=== PATIENT | female | born 1960 | race Caucasian/White ===

== ENCOUNTER → 2016-03-09 | Outpatient (CLI) | payer MEDICARE, BC ==
--- NOTE | 2016-03-09 15:44 | CT ---
EXAMINATION TYPE: CT cervical spine wo con DATE OF EXAM: 03/09/2016 3:10 PM COMPARISON: Previous study dated 10/13/2013 HISTORY: Pt states of vertigo issues. Hx of cervical sx x2 years ago. CT DLP: 762 mGycm Automated exposure control for dose reduction was used. TECHNIQUE: CT scan of the cervical spine is obtained without contrast, axial images are obtained, sa gittal and coronal reformatted images are also reviewed. FINDINGS: There is some atelectatic changes present in the dependent portions of the visualized lungs . There is some shotty cervical adenopathy. No definite pathologically enlarged lymph nodes are seen. Visualized intracranial structures appear normal. There is been a previous ACDF extending from C4 through C7. Alignment remains normal. Atlantoaxial re lationships are normal. There is some facet arthropathy on the right at C3-4. There has been a left hemilaminectomy at C5. There is some disc space narrowing at C3-4. There is bilateral intervertebral foraminal narrowing at this level. There is bilateral intervertebral foraminal narrowing also at C4-5, greater on the left t gonzalez the right. There is mild, right-sided intervertebral foraminal narrowing at C5-6. There does not appear to be significant compressive discopathy. IMPRESSION: 1. NO SIGNIFICANT COMPRESSIVE DISCOPATHY. 2. MULTILEVEL INTERVERTEBRAL FORAMINAL NARROWING. 3. POSTSURGICAL CHANGE.
== END | disposition home or self-care (01) ==
LOC: RADCTMAIN 14:50
PROVIDERS: ATTEND Family Medicine
DX: M99.71 Connective tissue and disc stenosis of intervertebral foramina of cervical region (principal); Z98.890 Other specified postprocedural states
CPT/HCPCS: 72125

== ENCOUNTER → 2016-05-30 | Outpatient (CLI) | payer MEDICARE, BC ==
--- NOTE | 2016-06-04 10:31 | ENG ---
DATE OF SERVICE: 05/30/2016 VNG STUDY VNG INDICATIONS: A 56-year-old female with vertigo and dizziness that started in 2012 and has been staying the same. She has spells of vertigo every few days and can last seconds to hours. It can be precipitated by head and neck and body positions. VNG FINDINGS: Saccades testing shows intact peak velocities, accuracies, and latencies. Gaze with fixation shows no nystagmus in any of the directions of gaze including centrally with vision denied. Tracking shows smooth tracking; no breakups at faster or slower speeds. Opticokinetic nystagmus shows no significant asymmetry. Static position testing in 6 positions both with eyes open and with vision denied shows no nystagmus in any of those positions. Hector-Hallpike maneuvers not performed due to cervical fusion per tech. Caloric testing shows bilateral caloric weakness. IMPRESSION: Bilateral caloric weakness is a nonspecific abnormality. This would need to be confirmed such as with head thrust test or active and passive rotation testing to confirm presence of bilateral vestibular dysfunction. Medication also a possibility. Benign positional vertigo could not be excluded due to [place]-Hallpike maneuvers not being performed. All other features of testing were unremarkable. No nystagmus noted in any part of the test. There were no central features to testing.
== END | disposition home or self-care (01) ==
LOC: NEUROMAIN 07:37
PROVIDERS: ATTEND Otolaryngology
DX: H81.03 Meniere's disease, bilateral (principal)
CPT/HCPCS: 92537; 92540

== ENCOUNTER 2016-08-23 07:59 | Emergency (ER) | payer MEDICARE, BC ==
[2016-08-23] MEDS ORDERED: SODIUM CHLORIDE 0.9% 1,000 ML IV STA (08:41)
[2016-08-23] MEDS ORDERED: HYDROmorphone 1 MG/ML 1 ML SYRINGE IVP STA ×2 (08:41→11:16)
[2016-08-23] MEDS ORDERED: ONDANSETRON 4 MG/2 ML VIAL IVP STA (08:41)
[2016-08-23 09:40] LABS: Basophils % (A) 1 %; CH 28.5; CHCM 33.3; Eosinophils # (A) 0.2 k/uL (0-0.7); Eosinophils % (A) 3 %; HDW 2.34; Luc % (Auto) 3; Lymphocytes # (A) 2.3 k/uL (1.0-4.8); Lymphocytes % (A) 36 %; MCH 30.1 pg (25.0-35.0); MCHC 34.9 g/dL (31.0-37.0); MCV 86.2 fL (80.0-100.0); Mean Platelet Volume 6.8; Monocytes # (A) 0.4 k/uL (0-1.0); Monocytes % (A) 7 %; Neutrophils # (A) 3.2 k/uL (1.3-7.7); Neutrophils % (A) 51 %; RBC 4.64 m/uL (3.80-5.40); RDW 13.1 % (11.5-15.5); WBC 6.4 k/uL (3.8-10.6); WBC (Perox) 6.71
--- NOTE | 2016-08-23 09:43 | XR ---
EXAMINATION TYPE: XR KUB DATE OF EXAM: 08/23/2016 COMPARISON: NONE HISTORY: Pain TECHNIQUE: Single supine KUB image of the abdomen is obtained FINDINGS: Small bowel demonstrates no evidence for dilatation or air fluid levels. Gas and fecal material is seen in non-distended colon. No convincing evidence for pneumoperitoneum. No unusual calcifications. The lung bases are clear. The osseous structures are intact. IMPRESSION: 1. Overall nonobstructive bowel gas pattern.
--- NOTE | 2016-08-23 09:50 | ED ---
Back Pain HPI - General Chief Complaint: Back Pain/Injury Stated Complaint: back pain, nausea Time Seen by Provider: 08/23/16 08:36 Source: patient, RN notes reviewed, old records reviewed Limitations: no limitations - History of Present Illness Initial Comments: 56-year-old female presents emergency Department chief complaint of right shoulder pain rating towards her right upper quadrant for the past 3 days. Patient reports that this is been intermittent but over the past 24 hours and become severe and stabbing. She reports that she's had fever and feels chilled. She reports that she does feel nauseated. She states that she is still has her gallbladder. Has history of appendectomy. Patient denies any recent fever, chills, shortness of breath, chest pain, nausea vomiting, numbness or tingling, dysuria or hematuria, constipation or diarrhea, headaches or visual changes, or any other current symptoms - Related Data Home Medications Medication Instructions Recorded Confirmed Levothyroxine Sodium [Synthroid] 112 mcg PO DAILY 10/13/13 08/23/16 Baclofen 10 mg PO HS 08/23/16 08/23/16 Diazepam [Valium] 2 mg PO TID PRN 08/23/16 08/23/16 Montelukast [Singulair] 10 mg PO HS 08/23/16 08/23/16 Ondansetron [Zofran] 4 mg PO Q8HR PRN 08/23/16 08/23/16 Triamterene-Hctz 37.5-25Mg 1 cap PO DAILY 08/23/16 08/23/16 [Dyazide 37.5-25 Capsule] Previous Rx's Medication Instructions Recorded Ibuprofen [Motrin] 800 mg PO Q6HR PRN #20 tab 01/05/16 Azithromycin [Zithromax Z-pack] 250 mg PO DIRECTED #6 tab 08/23/16 Famotidine [Pepcid] 20 mg PO BID #20 tablet 08/23/16 Ondansetron Odt [Zofran Odt] 4 mg PO Q8HR PRN #12 tab 08/23/16 Allergies Allergy/AdvReac Type Severity Reaction Status Date / Time acetaminophen Allergy Rapid Verified 08/23/16 08:23 [From [place]-N 100] Heart Rate ciprofloxacin Allergy Rash/Hives Verified 08/23/16 08:23 codeine Allergy Rapid Verified 08/23/16 08:23 Heart Rate hydrocodone bitartrate Allergy Rapid Verified 08/23/16 08:23 [From [place]] Heart Rate meperidine HCl [From Demerol] Allergy Rapid Verified 08/23/16 08:23 Heart Rate propoxyphene napsylate Allergy Rapid Verified 08/23/16 08:23 [From Darvocet-N 100] Heart Rate Review of Systems ROS Statement: Those systems with pertinent positive or pertinent negative responses have been documented in the HPI. ROS Other: All systems not noted in ROS Statement are negative. Past Medical History Past Medical History: Thyroid Disorder Additional Past Medical History / Comment(s): cervical vertigo, meniere's disease, hypercausis History of Any Multi-Drug Resistant Organisms: None Reported Past Surgical History: Appendectomy, Hernia Repair, Orthopedic Surgery, Tubal Ligation Additional Past Surgical History / Comment(s): neck surgery Past Psychological History: No Psychological Hx Reported Smoking Status: Never smoker Past Alcohol Use History: None Reported Past Drug Use History: None Reported General Exam - General Exam Comments Initial Comments: 56-year-old female. Patient appears to be in discomfort. Patient is hard of hearing. Limitations: no limitations General appearance: alert, in no apparent distress Head exam: Present: atraumatic, normocephalic, normal inspection Eye exam: Present: normal appearance, PERRL, EOMI. Absent: scleral icterus, conjunctival injection, periorbital swelling ENT exam: Present: normal exam, mucous membranes moist Neck exam: Present: normal inspection. Absent: tenderness, meningismus, lymphadenopathy Respiratory exam: Present: normal lung sounds bilaterally. Absent: respiratory distress, wheezes, rales, rhonchi, stridor Cardiovascular Exam: Present: regular rate, normal rhythm, normal heart sounds. Absent: systolic murmur, diastolic murmur, rubs, gallop, clicks GI/Abdominal exam: Present: soft, tenderness (Right upper quadrant tenderness. Positive Nolasco sign.), normal bowel sounds. Absent: distended, guarding, rebound, rigid Extremities exam: Present: normal inspection, full ROM, normal capillary refill. Absent: tenderness, pedal edema, joint swelling, calf tenderness Back exam: Present: normal inspection Neurological exam: Present: alert, oriented X3, CN II-XII intact Psychiatric exam: Present: normal affect, normal mood Skin exam: Present: warm, dry, intact, normal color. Absent: rash Course Vital Signs 08/23/16 08/23/16 08/23/16 08:08 08:23 09:18 Temperature 97.1 F L 97 F L Pulse Rate 66 61 54 L Respiratory 17 22 18 Rate Blood Pressure 120/72 120/55 119/59 O2 Sat by Pulse 100 98 Oximetry 08/23/16 08/23/16 10:11 11:14 Temperature 96.9 F L 97.5 F L Pulse Rate 54 L 60 Respiratory 18 19 Rate Blood Pressure 140/54 121/60 O2 Sat by Pulse 98 Oximetry Medical Decision Making - Medical Decision Making 56-year-old female presents emergency Department chief complaint of right shoulder pain rating towards her right upper quadrant for the past 3 days. Patient reports that this is been intermittent but over the past 24 hours and become severe and stabbing. She denies any fever or chills. - Lab Data Result diagrams: 08/23/16 09:10 08/23/16 09:10 Lab Results 08/23/16 08/23/16 08/23/16 Range/Units 09:10 09:10 10:05 WBC 6.4 (3.8-10.6) k/uL RBC 4.64 (3.80-5.40) m/uL Hgb 14.0 (11.4-16.0) gm/dL Hct 40.0 (34.0-46.0) % MCV 86.2 (80.0-100.0) fL MCH 30.1 (25.0-35.0) pg MCHC 34.9 (31.0-37.0) g/dL RDW 13.1 (11.5-15.5) % Plt Count 317 (150-450) k/uL Neutrophils % 51 % Lymphocytes % 36 % Monocytes % 7 % Eosinophils % 3 % Basophils % 1 % Neutrophils # 3.2 (1.3-7.7) k/uL Lymphocytes # 2.3 (1.0-4.8) k/uL Monocytes # 0.4 (0-1.0) k/uL Eosinophils # 0.2 (0-0.7) k/uL Basophils # 0.0 (0-0.2) k/uL Sodium 140 (137-145) mmol/L Potassium 5.3 H (3.5-5.1) mmol/L Chloride 105 (98-107) mmol/L Carbon Dioxide 26 (22-30) mmol/L Anion Gap 9 mmol/L BUN 18 H (7-17) mg/dL Creatinine 0.87 (0.52-1.04) mg/dL Est GFR (MDRD) Af Amer >60 (>60 ml/min/1.73 sqM) Est GFR (MDRD) Non-Af >60 (>60 ml/min/1.73 sqM) Glucose 100 H (74-99) mg/dL Calcium 9.7 (8.4-10.2) mg/dL Total Bilirubin 0.6 (0.2-1.3) mg/dL AST 26 (14-36) U/L ALT 39 (9-52) U/L Alkaline Phosphatase 75 (38-126) U/L Total Protein 7.2 (6.3-8.2) g/dL Albumin 4.4 (3.5-5.0) g/dL Amylase 42 (30-110) U/L Lipase 124 (23-300) U/L Urine Color Light Yellow Urine Appearance Clear (Clear) Urine pH 6.5 (5.0-8.0) Ur Specific [place] 1.009 (1.001-1.035) Urine Protein Negative (Negative) Urine Glucose (UA) Negative (Negative) Urine Ketones Negative (Negative) Urine Blood Negative (Negative) Urine Nitrite Negative (Negative) Urine Bilirubin Negative (Negative) Urine Urobilinogen <2.0 (<2.0) mg/dL Ur Leukocyte Esterase Negative (Negative) 08/23/16 12:06 EKG shows sinus bradycardia rate 59 bpm [place] interval 132 ms. QRS duration 70 ms. QT QTc is 4/43 ms. - Radiology Data Radiology results: report reviewed CT abdomen and pelvis in no acute inflammatory normality. There is no one, K diverticulosis sigmoid colon. My exam changes in the spine. Gallbladder Shows No Significant Abnormality.. Disposition Clinical Impression: Abdominal pain, Back pain Disposition: HOME SELF-CARE Condition: Good Instructions: Abdominal Pain (ED) Additional Instructions: patient has a follow-up with her primary care provider. Return to the emergency department if any alarming signs or symptoms occur. Prescriptions: Azithromycin [Zithromax Z-pack] 250 mg PO DIRECTED #6 tab Famotidine [Pepcid] 20 mg PO BID #20 tablet Ondansetron Odt [Zofran Odt] 4 mg PO Q8HR PRN #12 tab PRN Reason: Nausea Referrals: Shubham Edwards MD [Primary Care Provider] - 1-2 days Nydia Turcios MD [STAFF PHYSICIAN] - 1-2 days Time of Disposition: 12:37
[2016-08-23 09:53] LABS: ALT 39 U/L (9-52); AST 26 U/L (14-36); Alkaline Phosphatase 75 U/L (38-126); Amylase 42 U/L (30-110); Anion Gap 9 mmol/L; Blood Urea Nitrogen 18 mg/dL (7-17); Calcium 9.7 mg/dL (8.4-10.2); Carbon Dioxide 26 mmol/L (22-30); Chloride 105 mmol/L (98-107); Glucose 100 mg/dL (74-99); Non-African American GFR(MDRD) >60 (>60 ml/min/1.73 sqM); Potassium 5.3 mmol/L (3.5-5.1); Sodium 140 mmol/L (137-145); Total Bilirubin 0.6 mg/dL (0.2-1.3); Total Protein 7.2 g/dL (6.3-8.2)
--- NOTE | 2016-08-23 10:12 | US ---
EXAMINATION TYPE: US gallbladder DATE OF EXAM: 08/23/2016 COMPARISON: NONE CLINICAL HISTORY: Pain. EXAM MEASUREMENTS: Liver Length: 15.4 cm Gallbladder Wall: 0.1 cm CBD: 0.5 cm Right Kidney: 10.0 x 4.8 x 5.0 cm Pancreas: Obscured by bowel gas Liver: appears homogeneous Gallbladder: No stones seen Evidence for sonographic Nolasco's sign: yes CBD: wnl Right Kidney: No hydronephrosis or masses seen IMPRESSION: No significant abnormality.
[2016-08-23 10:24] LABS: Appearance,Urine Clear (Clear); Bilirubin,Urine Negative (Negative); Glucose,Urine (UA) Negative (Negative); Ketones,Urine Negative (Negative); Leukocyte Esterase,Urine Negative (Negative); Nitrite,Urine Negative (Negative); PH, Urine 6.5 (5.0-8.0); Protein,Urine Negative (Negative); Specific Gravity,Urine 1.009 (1.001-1.035); UA Billing (MACRO vs. MICRO) CHEM; Urobilinogen,Urine <2.0 mg/dL (<2.0)
[2016-08-23] MEDS ORDERED: RX INFO: IV CONTRAST WAS GIVEN 1 EACH MISC MISCELLANE PRN (10:37)
[2016-08-23 11:15] VITALS: PULSE 60
[2016-08-23] MEDS ORDERED: diphenhydrAMINE 50 MG/ML 1 ML VIAL IVP STA (11:19)
[2016-08-23] MEDS ORDERED: METOCLOPRAMIDE 5 MG/ML 2 ML VIAL IVP STA (11:19)
--- NOTE | 2016-08-23 11:36 | CT ---
EXAMINATION TYPE: CT abdomen pelvis w con DATE OF EXAM: 08/23/2016 REFERENCE: NONE HISTORY: Pain HISTORY: Patient complains of RUQ pain. REFERENCE: NONE CT DLP: 1553 mGy Automated exposure control for dose reduction was used. TECHNIQUE: Helical acquisition through the abdomen and pelvis was obtained following the oral ingesti on of without Oral Contrast and following intravenous administration of 100 mL of Omnipaque 300. The data was reformatted in axial, coronal and sagittal projections. FINDINGS: Visualized portions of the lungs are clear. There is no pleural or pericardial fluid. The heart is not enlarged. Within the abdomen, the liver, spleen and gallbladder are normal. Both adrenal glands are normal. Both kidneys demonstrate function and appear morphologically normal. The pancreas is unremarkable. There is no significant retroperitoneal, iliac or inguinal adenopathy. The bladder is unremarkable. The uterus and both ovaries are normal. There are scattered diverticula within the sigmoid colon without radiographic evidence of diverticuli tis. The appendix is not visualized. Small bowel loops are normal. There is no free fluid and no free air. There is mild hypertrophic spondylosis within the lumbar spine as well as some facet arthropathy. No bony destructive lesion is seen. IMPRESSION: 1. NO ACUTE INFLAMMATORY ABNORMALITY. 2. MINIMAL, UNCOMPLICATED DIVERTICULOSIS OF THE SIGMOID COLON. 3. MILD DEGENERATIVE CHANGES WITHIN THE SPINE.
[2016-08-23 13:05] VITALS: BP 103/75; RESP 18; TEMP 97.1
== END 2016-08-23 13:05 | disposition home or self-care (01) ==
LOC: EC 07:59
DX: K57.30 Diverticulosis of large intestine without perforation or abscess without bleeding (principal); R00.1 Bradycardia, unspecified; R10.11 Right upper quadrant pain; M54.9 Dorsalgia, unspecified; M25.511 Pain in right shoulder; R50.9 Fever, unspecified; R11.0 Nausea; H93.299 Other abnormal auditory perceptions, unspecified ear; E07.9 Disorder of thyroid, unspecified; Z79.899 Other long term (current) drug therapy; Z88.1 Allergy status to other antibiotic agents; Z88.5 Allergy status to narcotic agent; Z90.49 Acquired absence of other specified parts of digestive tract
CPT/HCPCS: 36415; 93005; 80053; 82150; 83690; 85025; 81003; 74000; 76705; 74177; 99285; 96374; 96375 ×3; 96376; 96361; J1200; J2765; J2405; J1170; Q9967

== ENCOUNTER 2017-02-06 20:43 | Observation (INO) | payer MEDICARE, BC ==
[2017-02-06] MEDS ORDERED: ONDANSETRON 4 MG/2 ML VIAL IVP STA (21:27)
[2017-02-06] MEDS ORDERED: DIAZEPAM 5 MG/ML 2 ML INJ IVP STA (21:46)
[2017-02-06 21:50] LABS: ALT 46 U/L (9-52); AST 33 U/L (14-36); Albumin 4.7 g/dL (3.5-5.0); Alkaline Phosphatase 75 U/L (38-126); Anion Gap 12 mmol/L; Blood Urea Nitrogen 15 mg/dL (7-17); Calcium 10.2 mg/dL (8.4-10.2); Carbon Dioxide 24 mmol/L (22-30); Chloride 103 mmol/L (98-107); Glucose 103 mg/dL (74-99); Lipase 149 U/L (23-300); Potassium 4.2 mmol/L (3.5-5.1); Sodium 139 mmol/L (137-145); Total Bilirubin 0.4 mg/dL (0.2-1.3); Total Protein 8.1 g/dL (6.3-8.2)
[2017-02-06 21:52] LABS: Creatine Kinase 72 U/L (30-135)
[2017-02-06 22:05] LABS: Creatine Kinase MB 0.8 ng/mL (0.0-2.4); Troponin I <0.012 ng/mL (0.000-0.034)
--- NOTE | 2017-02-06 22:22 | CT ---
EXAM: CT Head Without Intravenous Contrast CLINICAL HISTORY: Reason: pain TECHNIQUE: Axial computed tomography images of the head/brain without intravenous contrast. Coronal and sagittal reformats were obtained. CTDI is 60.30 mGy and DLP is 1017.10 mGy-cm. This CT exam was performed using one or more of the following dose reduction techniques: automated exposure control, adjustment of the mA and/or kV according to patient size, and/or use of iterative reconstruction technique. COMPARISON: CT head 07/11/14 FINDINGS: Brain: No intracranial hemorrhage, mass effect, or midline shift. Mild global volume loss. Mild sulcal and ventricular prominence is consistent with age-related parenchymal volume loss. Ventricles: See above. Bones/joints: No acute fracture. Sinuses: Unremarkable as visualized. No acute sinusitis. Mastoid air cells: Unremarkable as visualized. No mastoid effusion. IMPRESSION: No acute intracranial abnormality.
--- NOTE | 2017-02-06 22:31 | XR ---
EXAM: XR Chest, 2 Views CLINICAL HISTORY: chest pain, dizziness TECHNIQUE: Frontal and lateral views of the chest. COMPARISON: Chest x-ray 01/05/16 FINDINGS: Lungs: Linear opacity in the anterior right upper lobe, best seen on lateral view. Lungs are otherwise clear. Pleural space: No pleural effusion. No pneumothorax. Heart: Unremarkable. No cardiomegaly. Mediastinum: Unremarkable. Bones/joints: No acute findings. IMPRESSION: Linear opacity in the anterior right upper lobe on lateral view, likely discoid atelectasis but correlate for pneumonia.
[2017-02-06 22:44] LABS: Basophils % (A) 1 %; Eosinophils # (A) 0.2 k/uL (0-0.7); Eosinophils % (A) 2 %; HCT 39.8 % (34.0-46.0); HGB 12.7 gm/dL (11.4-16.0); Lymphocytes # (A) 1.7 k/uL (1.0-4.8); Lymphocytes % (A) 20 %; MCH 27.8 pg (25.0-35.0); MCV 86.9 fL (80.0-100.0); Mean Platelet Volume 6.6; Monocytes # (A) 0.7 k/uL (0-1.0); Monocytes % (A) 8 %; Neutrophils # (A) 5.4 k/uL (1.3-7.7); Neutrophils % (A) 67 %; Platelet Count 318 k/uL (150-450); RBC 4.58 m/uL (3.80-5.40); RDW 13.2 % (11.5-15.5); WBC 8.1 k/uL (3.8-10.6)
--- NOTE | 2017-02-06 22:46 | ED ---
General Adult HPI - General Chief complaint: Chest Pain Stated complaint: Chest Pain Source: patient, RN notes reviewed, old records reviewed Mode of arrival: ambulatory Limitations: no limitations - History of Present Illness Initial comments: this is a 57-year-old female to the ER for evaluation today. This patient presents for evaluation regards to nausea vomiting dizziness vertigo. Patient has history of Mnire's disease. Patient also is complaining of neck pain and back pain and pain down her back. Bilateral upper extremity weakness and [place] and walk today severe lower extremity weakness, patient was unable to stand up on her own. She really presented to urgent care and was sent ER for evaluation. Patient also complains of chest pain shortness of breath. Denies fever denies trauma. Patient is recent change in medications - Related Data Home Medications Medication Instructions Recorded Confirmed Diazepam [Valium] 2 mg PO TID PRN 08/23/16 02/06/17 Ondansetron [Zofran] 4 mg PO Q8HR PRN 08/23/16 02/06/17 Levothyroxine Sodium [Synthroid] 150 mcg PO DAILY 02/06/17 02/06/17 Allergies Allergy/AdvReac Type Severity Reaction Status Date / Time acetaminophen Allergy Rapid Verified 02/06/17 21:04 [From Darvocet-N 100] Heart Rate ciprofloxacin Allergy Rash/Hives Verified 02/06/17 21:04 codeine Allergy Rapid Verified 02/06/17 21:04 Heart Rate hydrocodone bitartrate Allergy Rapid Verified 02/06/17 21:04 [From [place]] Heart Rate meperidine HCl [From Demerol] Allergy Rapid Verified 02/06/17 21:04 Heart Rate propoxyphene napsylate Allergy Rapid Verified 02/06/17 21:04 [From Darvocet-N 100] Heart Rate Review of Systems ROS Statement: Those systems with pertinent positive or pertinent negative responses have been documented in the HPI. ROS Other: All systems not noted in ROS Statement are negative. Past Medical History Past Medical History: Thyroid Disorder Additional Past Medical History / Comment(s): cervical vertigo, meniere's disease, hypercausis History of Any Multi-Drug Resistant Organisms: None Reported Past Surgical History: Appendectomy, Hernia Repair, Orthopedic Surgery, Tubal Ligation Additional Past Surgical History / Comment(s): neck surgery Past Psychological History: No Psychological Hx Reported Smoking Status: Never smoker Past Alcohol Use History: None Reported Past Drug Use History: None Reported General Exam Limitations: no limitations General appearance: alert, in no apparent distress Head exam: Present: atraumatic, normocephalic, normal inspection Eye exam: Present: normal appearance, PERRL, EOMI, nystagmus. Absent: scleral icterus, conjunctival injection, periorbital swelling ENT exam: Present: normal exam, mucous membranes moist Neck exam: Present: normal inspection. Absent: tenderness, meningismus, lymphadenopathy Respiratory exam: Present: normal lung sounds bilaterally. Absent: respiratory distress, wheezes, rales, rhonchi, stridor Cardiovascular Exam: Present: regular rate, normal rhythm, normal heart sounds. Absent: systolic murmur, diastolic murmur, rubs, gallop, clicks GI/Abdominal exam: Present: soft, normal bowel sounds. Absent: distended, tenderness, guarding, rebound, rigid Extremities exam: Present: normal inspection, full ROM, normal capillary refill. Absent: tenderness, pedal edema, joint swelling, calf tenderness Back exam: Present: normal inspection Neurological exam: Present: alert, oriented X3, CN II-XII intact Psychiatric exam: Present: normal affect, normal mood Skin exam: Present: warm, dry, intact, normal color. 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 Patient has history of severe vertigo, coming in with worsening vertigo today, we'llbilateral upper extremity weakness and pain in her neck and back. Patient is unable to ambulate without help, continued nauseous and vomiting patient will be admitted for evaluation and treatment, management of symptoms - Lab Data Result diagrams: 02/06/17 22:40 02/06/17 21:10 Lab Results 02/06/17 02/06/17 02/06/17 Range/Units 21:10 21:10 21:10 WBC (3.8-10.6) k/uL RBC (3.80-5.40) m/uL Hgb (11.4-16.0) gm/dL Hct (34.0-46.0) % MCV (80.0-100.0) fL MCH (25.0-35.0) pg MCHC (31.0-37.0) g/dL RDW (11.5-15.5) % Plt Count (150-450) k/uL Neutrophils % % Lymphocytes % % Monocytes % % Eosinophils % % Basophils % % Neutrophils # (1.3-7.7) k/uL Lymphocytes # (1.0-4.8) k/uL Monocytes # (0-1.0) k/uL Eosinophils # (0-0.7) k/uL Basophils # (0-0.2) k/uL PT (9.0-12.0) sec INR (<1.2) APTT (22.0-30.0) sec D-Dimer (<0.60) mg/L FEU Sodium 139 (137-145) mmol/L Potassium 4.2 (3.5-5.1) mmol/L Chloride 103 (98-107) mmol/L Carbon Dioxide 24 (22-30) mmol/L Anion Gap 12 mmol/L BUN 15 (7-17) mg/dL Creatinine 0.79 (0.52-1.04) mg/dL Est GFR (MDRD) Af Amer >60 (>60 ml/min/1.73 sqM) Est GFR (MDRD) Non-Af >60 (>60 ml/min/1.73 sqM) Glucose 103 H (74-99) mg/dL Calcium 10.2 (8.4-10.2) mg/dL Phosphorus (2.5-4.5) mg/dL Magnesium 2.0 (1.6-2.3) mg/dL Total Bilirubin 0.4 (0.2-1.3) mg/dL AST 33 (14-36) U/L ALT 46 (9-52) U/L Alkaline Phosphatase 75 (38-126) U/L Total Creatine Kinase 72 (30-135) U/L CK-MB (CK-2) 0.8 (0.0-2.4) ng/mL CK-MB (CK-2) Rel Index 1.1 Troponin I <0.012 (0.000-0.034) ng/mL Total Protein 8.1 (6.3-8.2) g/dL Albumin 4.7 (3.5-5.0) g/dL Lipase 149 (23-300) U/L 02/06/17 02/06/17 02/06/17 Range/Units 21:10 22:40 22:40 WBC 8.1 (3.8-10.6) k/uL RBC 4.58 (3.80-5.40) m/uL Hgb 12.7 (11.4-16.0) gm/dL Hct 39.8 (34.0-46.0) % MCV 86.9 (80.0-100.0) fL MCH 27.8 (25.0-35.0) pg MCHC 32.0 (31.0-37.0) g/dL RDW 13.2 (11.5-15.5) % Plt Count 318 (150-450) k/uL Neutrophils % 67 % Lymphocytes % 20 % Monocytes % 8 % Eosinophils % 2 % Basophils % 1 % Neutrophils # 5.4 (1.3-7.7) k/uL Lymphocytes # 1.7 (1.0-4.8) k/uL Monocytes # 0.7 (0-1.0) k/uL Eosinophils # 0.2 (0-0.7) k/uL Basophils # 0.0 (0-0.2) k/uL PT 10.2 (9.0-12.0) sec INR 1.0 (<1.2) APTT 22.8 (22.0-30.0) sec D-Dimer (<0.60) mg/L FEU Sodium (137-145) mmol/L Potassium (3.5-5.1) mmol/L Chloride (98-107) mmol/L Carbon Dioxide (22-30) mmol/L Anion Gap mmol/L BUN (7-17) mg/dL Creatinine (0.52-1.04) mg/dL Est GFR (MDRD) Af Amer (>60 ml/min/1.73 sqM) Est GFR (MDRD) Non-Af (>60 ml/min/1.73 sqM) Glucose (74-99) mg/dL Calcium (8.4-10.2) mg/dL Phosphorus 4.1 (2.5-4.5) mg/dL Magnesium (1.6-2.3) mg/dL Total Bilirubin (0.2-1.3) mg/dL AST (14-36) U/L ALT (9-52) U/L Alkaline Phosphatase (38-126) U/L Total Creatine Kinase (30-135) U/L CK-MB (CK-2) (0.0-2.4) ng/mL CK-MB (CK-2) Rel Index Troponin I (0.000-0.034) ng/mL Total Protein (6.3-8.2) g/dL Albumin (3.5-5.0) g/dL Lipase (23-300) U/L - Radiology Data Radiology results: report reviewed (CT brain and chest x-ray is negative), image reviewed Disposition Clinical Impression: Vertigo, Chest pain, Weakness Disposition: ADMITTED IP TO THIS [facility] Condition: Good Referrals: Shubham Edwards MD [Primary Care Provider] - 1-2 days
[2017-02-06 22:55] LABS: Partial Thromboplastin Time 22.8 sec (22.0-30.0); Prothrombin Time 10.2 sec (9.0-12.0)
[2017-02-06] MEDS ORDERED: ONDANSETRON 4 MG/2 ML VIAL IVP PRN (23:57)
[2017-02-06] MEDS ORDERED: DIAZEPAM 5 MG/ML 2 ML INJ IVP PRN (23:57)
[2017-02-06] MEDS ORDERED: SODIUM CHLORIDE 0.9% 1,000 ML IV ONE (23:57)
[2017-02-06] MEDS ORDERED: MECLIZINE 25 MG TAB PO PRN (23:57)
[2017-02-07] MEDS ORDERED: MORPHINE SULFATE 5 MG/ML SYRINGE IVP PRN (00:25)
[2017-02-07 01:06] VITALS: BMI 33.8
[2017-02-07] MEDS: IBUPROFEN 800 MG TAB PO PRN ×2 (01:57→09:44)
[2017-02-07] MEDS ORDERED: RX INFO: IV CONTRAST WAS GIVEN 1 EACH MISC MISCELLANE PRN (08:20)
[2017-02-07] MEDS ORDERED: PANTOPRAZOLE 40 MG/10 ML VIAL IVP SCH (09:00)
[2017-02-07] MEDS ORDERED: DIAZEPAM 5 MG/ML (10 ML MDV) IVP PRN (09:36)
--- NOTE | 2017-02-07 09:36 | CT ---
EXAMINATION TYPE: CT CervThoracic spine wo con DATE OF EXAM: 02/07/2017 COMPARISON: CT cervical spine March 09, 2016. HISTORY: Vertigo, Nausea and Vomiting per patient. Neck and back pain per order. CT DLP: 2210.40 mGycm Automated exposure control for dose reduction was used. FINDINGS: Cervical spine is visualized in its entirety from C1 through upper thoracic levels, redemonstrate str aightened alignment without evidence of acute fracture or dislocation. Prevertebral soft tissue appe ars remains normal limits. The C1-C2 articulation remains within normal limits on the coronal images . There is persistent narrowing of the atlantodental interval. There is persistent anterior fusion pl ate and artificial disc material C4-C7 levels. There is persistent mild disc space narrowing C3-C4 le jenny. Spinal canal is grossly preserved. Review of axial images redemonstrates uncovertebral facet degenerative changes C3-C4 level causing mo derate bilateral neural foraminal narrowing not significantly changed from prior. There is mild to mo derate bilateral neural foraminal narrowing at C4-C5 level due to uncovertebral facet arthropathy and marginal spurring. There is mild to moderate right greater than left neural foraminal narrowing at C 5-C6 level due to marginal spurring. Overall there is no significant change from prior study. Thyroid gland is felt within normal limits. Thoracic Spine Shows Demineralization. There Is No Acute Fracture Or Dislocation Seen. Vertebral Body Heights Are Maintained. There Is Mild Multilevel Disc Space Narrowing And Mild To Moderate Multileve l Anterior And Lateral Spurring Centered In The Mid Thoracic Spine. Spinal Canal Is Grossly Preserved . Review Of Axial Images Shows No Large Disc Herniation At Any Thoracic Level. Visualized Portion Of Lea ngs Are Clear. There Is 2 Mm Calcified Nodule Right Upper Lobe On Axial Image 71 There Are Prominent Borderline Enlarged Thoracic Lymph Nodes. For Reference Right Paratracheal Lymph Node Measures 13 X 8 Mm On Axial Image 89. Paraspinal muscle bulk is maintained. IMPRESSION: No acute fracture or dislocation. No significant acute finding identified.
[2017-02-07] MEDS: LEVOTHYROXINE 75 MCG TAB PO SCH (10:19)
--- NOTE | 2017-02-07 14:18 | P.CON ---
Consult Note - . Consult date: 02/07/17 Assessment/Plan:: Patient seen and examined at bedside. Patient has an underlying history of Meniere's disease, and relates a three-day history of loss of balance, nausea/ vomiting, and pain in the middle of her back between the shoulder blades and neck. Patient has history of previous ACDF done several years ago. Patient has continued to complain of pain and spasm in the neck and upper back. She also complains of feeling like her "eyes are jittery" and some temperature changes in her face. She has not taken opioids recently and occasionally takes Valium for spasm. The patient does have some paravertebral tenderness in the thoracic spine, and some cervical facet tenderness bilaterally. That said, her symptoms of dizziness and nausea appear to have some underlying neurologic origin and would likely not benefit from an interventional procedure. I will start the patient on [place] and ibuprofen for pain, and tizanidine for spasms, and recommend neurology eval for complaints of eye "jitteriness" and other neurologic somatic complaints. Please call back with any further questions.
[2017-02-07] MEDS ORDERED: oxyCODONE-APAP 5-325MG 1 EACH TAB PO PRN (14:20)
[2017-02-07 15:47] VITALS: RESP 18
[2017-02-07] MEDS ORDERED: cefTRIAXone IN SWFI 1,000 MG/10 ML SYRINGE IVP SCH (16:00)
[2017-02-07] MEDS ORDERED: guaiFENesin SYRUP 100MG/5ML 200 MG/10 ML CUP PO PRN (16:25)
[2017-02-07] MEDS: tiZANidine 4 MG TAB PO SCH ×2 (16:53→19:53)
--- NOTE | 2017-02-07 17:27 | HP ---
HISTORY AND PHYSICAL CHIEF COMPLAINT: A 57-year-old white female with atypical chest pain and thoracic and cervical pain with worsening of her dizziness. HISTORY OF PRESENT ILLNESS: She came to the ER due to significant vomiting, dizziness, vertigo, history of Meniere disease, neck pain, pain in the mid thoracic area. She was seen by ER doctor, admitted to the hospital with atypical chest pain, neck pain, back pain with worsening of her vertigo-type symptomatology. Cardiology will need to see her as well as possible Neurology versus Anesthesia assessment for cervical injection. HOME MEDICATIONS: 1. Valium 2 mg t.i.d. 2. Zofran 4 mg q.8 hours p.r.n. 3. Synthroid 150 mcg daily. ALLERGIES: From DARVOCET, CIPRO, CODEINE, NORCO, DEMEROL. REVIEW OF SYSTEMS: Fourteen-point review of systems negative except for that mentioned in HPI. PAST MEDICAL HISTORY: Hypothyroidism, cervical vertigo, Meniere disease, hypercephalgia. SURGICAL HISTORY: Hernia repair, appendectomy, orthopedic surgery, tubal ligations, prior cervical surgery. PHYSICAL EXAM: VITAL SIGNS: Stable, afebrile. CARDIOVASCULAR: S1, S2. LUNGS: Transmitted upper airway sounds. GI: Soft, nontender. OPHTHALMOLOGIC: Pupils equal, round, reactive to light and accommodation. Ears are patent and some mild fluid behind the ear drums. HEENT: Normocephalic, atraumatic. Some nystagmus. Absent scleral icterus. Neck shows normal appearance. No acute distress. Lungs show some scattered rhonchi. EXTREMITIES: No cyanosis, clubbing, edema. BACK: Normal to inspection. NEUROLOGIC: Cranial nerves are intact. PSYCH: Fair mood and affect. Skin shows no rashes. Blood pressure is 130s to 150s over 70s to 80s. Pulse is 70s to 80s, O2 is 98-99% on room air. The EKG shows sinus rhythm. ASSESSMENT: Severe vertigo, cervical neuritis, atypical chest pain, rule out myocardial infarction. Cardiology consult as well as troponins will be done and repeated [facility] for cervical epidural will be done. MMODL / IJN: [id number] /
[2017-02-07] MEDS ORDERED: IPRATROPIUM-ALBUTEROL 3 ML NEB INHALATION PRN (19:55)
--- NOTE | 2017-02-07 22:28 | CONS ---
CONSULTATION DATE OF SERVICE: 02/07/2017. CHIEF COMPLAINT: Dizziness. HISTORY OF PRESENT ILLNESS: This is pleasant 57-year-old female who is being evaluated by the Neurology Service per the request of Dr. Edwards for dizziness. The patient has history of Meniere disease with frequent episodes of vertigo and chronic hearing loss. She states that over the past several days, her dizziness has been different and more severe. She was also complaining of some neck pain and sensation of eye twitching. She also had symptoms of upper extremity weakness. She states that she was recently diagnosed with pneumonia and was being treated with erythromycin. Once she started erythromycin, her weakness began and she noticed increasing neck pain. In the emergency room, a CT scan of the brain was done, which showed no acute abnormalities. A CT scan of the cervical spine was done which showed facet joint arthropathy with no significant stenosis or disc herniation. and they did start the patient on [place] on this admission. She reports mild improvements in her neck. At the time of my evaluation, she is resting in her bed and appears to be in no acute distress. She reports improvement in her strength. Her antibiotic has been switched to switched to Rocephin. A comprehensive metabolic profile and cardiac enzymes were normal. PAST MEDICAL HISTORY: Hypothyroidism, Meniere disease, history of appendectomy, hernia repair, surgery, orthopedic surgery, tubal ligation, neck surgery. SOCIAL HISTORY: She denies any tobacco alcohol or drug use. FAMILY HISTORY: Noncontributory. HOME MEDICATIONS: Reviewed in the chart. ALLERGIES: CIPROFLOXACIN, CODEINE, HYDROCODONE, MEPERIDINE, DARVOCET. REVIEW OF SYSTEMS: As mentioned above and otherwise negative. PHYSICAL EXAM: Vital signs show a temperature of 98.1, pulse 65, respiration 18, blood pressure 133/70. GENERAL APPEARANCE: The patient is a well-developed female who appears to be in no acute distress. HEENT: Normocephalic, atraumatic, diminished hearing is present. No facial asymmetry is seen. NECK: Supple with no masses felt. CARDIOVASCULAR: Regular rate and rhythm. ABDOMEN: Nontender nondistended. Extremities showed no edema or clubbing. Neurological exam the patient is alert aware and oriented x3. Speech and language are normal. Strength appears to be full in all 4 extremities. Sensory exam was normal to light touch in all 4 extremities. No facial asymmetry is seen on cranial nerve testing, but she does have diminished hearing. No tremors or seizure-like activity is seen. IMPRESSION: 1. Vertigo. 2. History of Meniere's disease. 3. Chronic hearing loss. 4. Cervicalgia. 5. Cervical facet joint arthropathy. 6. Upper extremity weakness, resolved. RECOMMENDATION: The patient's vertigo is due to her Meniere disease. Her symptoms may have been worsened due to her recent pneumonia and antibiotic therapy. Erythromycin has been discontinued and her weakness has completely resolved. Continue Rocephin. As for her neck pain, she may continue on [place] as needed. Further treatment options will be discussed in outpatient setting. Physical Therapy will also be discussed in the outpatient setting. I do recommend an ENT consultation. An EEG has been ordered. I will continue to follow with you. Further recommendations to follow. Thank you, Dr. Edwards, for allowing me to participate in the care of your patient. If you have any questions, please feel free to contact me. MMODL / IJN: [id number] /
[2017-02-08] MEDS: LEVOTHYROXINE 75 MCG TAB PO SCH (06:47)
[2017-02-08 10:15] VITALS: BP 120/66; PULSE 74; TEMP 97.4
--- NOTE | 2017-02-15 10:39 | EEG ---
ELECTROENCEPHALOGRAM REPORT DATE OF SERVICE: 02/08/2017 REASON FOR TESTING: Dizziness. DESCRIPTION OF THE PROCEDURE: This EEG was performed using a 21 channel digital electroencephalograph, following international 10-20 system. DESCRIPTION OF THE RECORDING: From the beginning of the tracing, with patient's eyes closed, the background rhythm was mostly consisting of 10 hertz alpha frequency in the posterior occipital leads. No obvious asymmetry is seen. Photic stimulation was performed with a minimal driving response seen. No pathological waves were elicited. Hyperventilation was not performed. Rare movement artifacts are seen. The patient remains awake throughout the tracing. No epileptiform discharges were noticed. Her EKG lead showed a regular rate and rhythm. INTERPRETATION: This awake EEG can be considered within normal limits. There is no asymmetry seen. No epileptiform discharges were noticed. The absence of epileptiform discharges does not rule out the diagnosis of epilepsy, therefore clinical correlation is recommended. MMKAREL / MORENA: [id number] /
--- NOTE | 2017-03-10 15:59 | DS ---
DISCHARGE SUMMARY DATE OF ADMISSION: 02/06/2017. DATE OF DISCHARGE: 02/08/2017. DISCHARGE MEDICATIONS: Ativan 2 mg t.i.d. p.r.n., Zofran 4 mg q.8 hours p.r.n., Synthroid 150 mcg daily. CONDITION: Stable. PROGNOSIS: Guarded. DISCHARGE DIAGNOSES: 1. Acute dizziness. 2. Bilateral cervical neuroforaminal narrowing. 3. . 4. History of Meniere disease, chronic hearing loss. 5. Cervicalgia. 6. Cervical facet joint arthropathy. 7. Vertigo due to her Meniere disease. She was given IV fluids, IV Valium, medications per Neurology. Her recent pneumonia was treated with Erythromycin and Rocephin was given through the IV while in the hospital for prior pneumonia, cough and congestion. She stabilized, sent home to follow up in the office within a week. MMODL / JUVENALN: [id number] /
== END 2017-02-08 14:50 ==
LOC: EC 20:43 → 3OBS 23:57
PROVIDERS: ADMIT Family Medicine; ATTEND Family Medicine
DX: R07.89 Other chest pain (principal); M54.2 Cervicalgia; M54.6 Pain in thoracic spine; R11.2 Nausea with vomiting, unspecified; H81.09 Meniere's disease, unspecified ear; Z79.899 Other long term (current) drug therapy; E03.9 Hypothyroidism, unspecified; R53.1 Weakness; R06.02 Shortness of breath; Z88.6 Allergy status to analgesic agent; Z88.1 Allergy status to other antibiotic agents; Z88.5 Allergy status to narcotic agent; Z88.8 Allergy status to other drugs, medicaments and biological substances; Z98.1 Arthrodesis status; H91.90 Unspecified hearing loss, unspecified ear; M12.9 Arthropathy, unspecified
CPT/HCPCS: 99285; 96374; 96375 ×3; 96376; 36415; 94640; 95819; 93005; 80053; 82550; 82553; 83690; 83735; 84100; 84484; 85025; 85610; 85730; 71020; 72128; 72125; 70450; G0378 ×3; J3360 ×2; J2405; J0696; C9113; 85379

== ENCOUNTER → 2017-04-12 | Outpatient (CLI) | payer MEDICARE, BC ==
--- NOTE | 2017-04-15 09:12 | MM ---
Reason for exam: screening (asymptomatic). Last mammogram was performed 1 year and 4 months ago. History: Patient is postmenopausal. Family history of breast cancer in maternal aunt. Benign core biopsy of the right breast. Physical Findings: A clinical breast exam by your physician is recommended on an annual basis and results should be correlated with mammographic findings. MG 3D Screening Mammo W/Cad Bilateral CC and MLO view(s) were taken. Prior study comparison: December 06, 2015, bilateral MG 3d screening mammo w/cad. June 15, 2014, mammogram, performed at [facility]. The breast tissue is heterogeneously dense. This may lower the sensitivity of mammography. Finding #1: There are typically benign circumscribed round, oval masses in both breasts unchanged from 2009. Finding #2: There are typically benign diffuse/scattered calcifications in both breasts. No suspicious abnormality. ASSESSMENT: Benign, BI-RAD 2 RECOMMENDATION: Routine screening mammogram of both breasts in 1 year.
== END | disposition home or self-care (01) ==
LOC: RADMAMWWP 09:16
PROVIDERS: ATTEND Family Medicine
DX: Z12.31 Encounter for screening mammogram for malignant neoplasm of breast (principal)
CPT/HCPCS: 77063; 77067

== ENCOUNTER → 2017-11-19 | Outpatient (CLI) | payer MEDICARE, BC ==
--- NOTE | 2017-11-19 15:57 | BD ---
EXAMINATION TYPE: Axial Bone Density DATE OF EXAM: 11/19/2017 COMPARISON: 09.12.2009 CLINICAL HISTORY: 57 YR OLD FEMALE....ICD-10 CODE: Z13.820 SCREEN FOR OSTEOPOROSIS Height: 62 Weight: 186 FRAX RISK QUESTIONS: NOTHING TO NOTE HERE RISK FACTORS HISTORY OF: History of Wrist Fracture: LT A CHILD Surgery to Spine CERVICAL ONLT PLATED WITH SCREWS Family History of Osteoporosis: YES, MOTHER AND SISTER Active: YES Diet low in dairy products/other sources of calcium: YES, LACTOSE INTOLERANT Postmenopausal woman: BHAVESH AT AGE 52 MEDICATIONS: Prednisone or other steroids: IN PAST ONLY Thyroid Medications: YES, SYNTHROID, FOR 26 YRS Additional Medications: VALIUM PRN, INHALER FOR BRONCHITIS PRN, Additional History: MENIERE'S DISEASE, EXAM MEASUREMENTS: Bone mineral densitometry was performed using the Entrisphere System. Bone mineral density as measured about the Lumbar spine is: ----- L1-L4(G/cm2): 1.208 T Score Values are as follows: ----- L1: -1.4 ----- L2: -0.2 ----- L3: 0.8 ----- L4: 1.1 ----- L1-L4: 0.2 Bone mineral density has: Decreased -6.1% since study of: 09.12.2009 Bone mineral density about the R hip (g/cm2): 1.023 Bone mineral density about the L hip (g/cm2): 1.042 T Score values are as follows: -----R Neck: -0.1 -----L Neck: -0.6 -----R Total: 0.1 -----L Total: 0.3 Bone mineral density has: Decreased -1.0% since study of: 09.12.2009 FRAX%s: THERE IS A 5.5% CHANCE FOR A MAJOR OSTEOPOROTIC FX AND 0.2% FOR HIP FX.....PROBABILITY OF FX IN 10 YRS TIME IMPRESSION: Normal (Values between +1 and -1 indicate normal bone mass). Consider repeating this study in 5 year s or sooner if there is some new clinical indication. NOTE: T-SCORE=SD OF THE YOUNG ADULT MEAN.
== END ==
LOC: RADBDWWP 14:45
PROVIDERS: ATTEND Obstetrics & Gynecology
DX: Z13.820 Encounter for screening for osteoporosis (principal)
CPT/HCPCS: 77080

== ENCOUNTER 2018-02-13 08:06 | Emergency (ER) | payer MEDICARE, BC ==
[2018-02-13 08:20] VITALS: RESP 18
[2018-02-13] MEDS ORDERED: ONDANSETRON 4 MG/2 ML VIAL IVP STA (08:22)
[2018-02-13] MEDS ORDERED: SODIUM CHLORIDE 0.9% 1,000 ML IV STA ×2 (08:22)
[2018-02-13] MEDS ORDERED: SODIUM CHLORIDE 0.9% 500 ML 500 ML IV STA (08:22)
--- NOTE | 2018-02-13 08:23 | ED ---
Nausea/Vomiting/Diarrhea HPI - General Chief complaint: Nausea/Vomiting/Diarrhea Stated complaint: RT SIDE ABDOMINAL PAIN, VOMITING Time Seen by Provider: 02/13/18 08:22 Source: patient, RN notes reviewed, old records reviewed Mode of arrival: ambulatory - History of Present Illness Initial comments: This is a 58-year-old female the ER with 3-4 days of nausea vomiting and diarrhea. Patient no significant injury medical history no surgical history. No recent travel history, no known sick contacts, patient denies any count and was similar complaint. Patient denies any fevers. MD complaint: nausea, vomiting, diarrhea (Recently started today with loose stools) -: days(s) (4) Description of Vomiting: food contents, bilious Description of Diarrhea: water Associated Abdominal Pain: Yes Location: periumbilical, RUQ Radiation: none Severity: moderate Severity scale (1-10): 4 Quality: aching Consistency: constant Improves with: none Worsens with: eating, movement Context: other (None) Associated Symptoms: nausea/vomiting, weakness - Related Data Home Medications Medication Instructions Recorded Confirmed Diazepam [Valium] 2 mg PO TID PRN 08/23/16 02/13/18 Ondansetron [Zofran] 4 mg PO Q8HR PRN 08/23/16 02/13/18 Calcium Carbonate [Calcium] 600 mg PO DAILY 02/13/18 02/13/18 Levothyroxine Sodium [Synthroid] 125 mcg PO DAILY 02/13/18 02/13/18 Allergies Allergy/AdvReac Type Severity Reaction Status Date / Time ciprofloxacin Allergy Rash/Hives Verified 02/13/18 08:45 codeine Allergy Rapid Verified 02/13/18 08:45 Heart Rate hydrocodone bitartrate Allergy Rapid Verified 02/13/18 08:45 [From [place]] Heart Rate meperidine HCl [From Demerol] Allergy Rapid Verified 02/13/18 08:45 Heart Rate propoxyphene napsylate Allergy Rapid Verified 02/13/18 08:45 [From Darvocet-N 100] Heart Rate Review of Systems ROS Statement: Those systems with pertinent positive or pertinent negative responses have been documented in the HPI. ROS Other: All systems not noted in ROS Statement are negative. Past Medical History Past Medical History: Thyroid Disorder Additional Past Medical History / Comment(s): cervical vertigo, meniere's disease, hypercausis History of Any Multi-Drug Resistant Organisms: None Reported Past Surgical History: Appendectomy, Hernia Repair, Orthopedic Surgery, Tubal Ligation Additional Past Surgical History / Comment(s): neck surgery. Has a plate in her neck C3-C8 Additional Past Anesthesia/Blood Transfusion Reaction / Comment(s): Coded while having surgery Past Psychological History: Anxiety Smoking Status: Never smoker Past Alcohol Use History: None Reported Past Drug Use History: None Reported - Past Family History Father Family Medical History: Cancer Additional Family Medical History / Comment(s): Prostate CA, Anxiety Mother Family Medical History: COPD, Diabetes Mellitus Additional Family Medical History / Comment(s): Colon CA, Triple bypass, kidney failure, anxiety, depression, tumor behind her left eye General Exam General appearance: alert, in no apparent distress Head exam: Present: atraumatic, normocephalic, normal inspection Eye exam: Present: normal appearance, PERRL, EOMI. Absent: scleral icterus, conjunctival injection, periorbital swelling ENT exam: Present: normal exam, mucous membranes moist Neck exam: Present: normal inspection. Absent: tenderness, meningismus, lymphadenopathy Respiratory exam: Present: normal lung sounds bilaterally. Absent: respiratory distress, wheezes, rales, rhonchi, stridor Cardiovascular Exam: Present: regular rate, normal rhythm, normal heart sounds. Absent: systolic murmur, diastolic murmur, rubs, gallop, clicks GI/Abdominal exam: Present: soft, tenderness (RUQ), normal bowel sounds. Absent : distended, guarding, rebound, rigid Extremities exam: Present: normal inspection, full ROM, normal capillary refill. Absent: tenderness, pedal edema, joint swelling, calf tenderness Back exam: Present: normal inspection Neurological exam: Present: alert, oriented X3, CN II-XII intact Psychiatric exam: Present: normal affect, normal mood Skin exam: Present: warm, dry, intact, normal color. Absent: rash Course Vital Signs 02/13/18 02/13/18 08:15 10:23 Temperature 97.8 F Pulse Rate 87 68 Respiratory 18 18 Rate Blood Pressure 109/75 103/85 O2 Sat by Pulse 98 100 Oximetry - Reevaluation(s) Reevaluation #1: 02/13/18 10:08 Medical record is reviewed Reevaluation #2: 02/13/18 12:05 Patient does feel much improvement in symptoms currently Medical Decision Making - Medical Decision Making 58 female the ER for evaluation. Patient resents today for evaluation of nausea vomiting and diarrhea, positive urinary tract infection. Patient will be placed on antibiotics nausea medication and encouraged to increase fluid intake. Patient feels better and is okay for discharge home - Lab Data Result diagrams: 02/13/18 08:51 02/13/18 08:51 Lab Results 02/13/18 02/13/18 02/13/18 Range/Units 08:51 08:51 08:51 WBC 5.8 (3.8-10.6) k/uL RBC 5.37 (3.80-5.40) m/uL Hgb 14.6 (11.4-16.0) gm/dL Hct 46.4 H (34.0-46.0) % MCV 86.4 (80.0-100.0) fL MCH 27.2 (25.0-35.0) pg MCHC 31.4 (31.0-37.0) g/dL RDW 13.6 (11.5-15.5) % Plt Count 355 (150-450) k/uL Neutrophils % 59 % Lymphocytes % 24 % Monocytes % 10 % Eosinophils % 3 % Basophils % 0 % Neutrophils # 3.4 (1.3-7.7) k/uL Lymphocytes # 1.4 (1.0-4.8) k/uL Monocytes # 0.6 (0-1.0) k/uL Eosinophils # 0.2 (0-0.7) k/uL Basophils # 0.0 (0-0.2) k/uL PT (9.0-12.0) sec INR (<1.2) APTT (22.0-30.0) sec Sodium 141 (137-145) mmol/L Potassium 5.1 (3.5-5.1) mmol/L Chloride 104 (98-107) mmol/L Carbon Dioxide 30 (22-30) mmol/L Anion Gap 7 mmol/L BUN 13 (7-17) mg/dL Creatinine 0.84 (0.52-1.04) mg/dL Est GFR (CKD-EPI)AfAm 89 (>60 ml/min/1.73 sqM) Est GFR (CKD-EPI)NonAf 77 (>60 ml/min/1.73 sqM) Glucose 112 H (74-99) mg/dL Plasma Lactic Acid Valerio (0.7-2.0) mmol/L Calcium 9.7 (8.4-10.2) mg/dL Phosphorus 4.0 (2.5-4.5) mg/dL Magnesium 2.1 (1.6-2.3) mg/dL Total Bilirubin 0.7 (0.2-1.3) mg/dL AST 36 (14-36) U/L ALT 41 (9-52) U/L Alkaline Phosphatase 82 (38-126) U/L Total Creatine Kinase 41 (30-135) U/L CK-MB (CK-2) <0.2 (0.0-2.4) ng/mL CK-MB (CK-2) Rel Index Troponin I <0.012 (0.000-0.034) ng/mL Total Protein 7.6 (6.3-8.2) g/dL Albumin 4.3 (3.5-5.0) g/dL Lipase (23-300) U/L Urine Color Urine Appearance (Clear) Urine pH (5.0-8.0) Ur Specific [place] (1.001-1.035) Urine Protein (Negative) Urine Glucose (UA) (Negative) Urine Ketones (Negative) Urine Blood (Negative) Urine Nitrite (Negative) Urine Bilirubin (Negative) Urine Urobilinogen (<2.0) mg/dL Ur Leukocyte Esterase (Negative) Urine WBC (0-5) /hpf Ur Squamous Epith Cells (0-4) /hpf Urine Mucus (None) /hpf 02/13/18 02/13/18 02/13/18 Range/Units 08:51 08:51 09:04 WBC (3.8-10.6) k/uL RBC (3.80-5.40) m/uL Hgb (11.4-16.0) gm/dL Hct (34.0-46.0) % MCV (80.0-100.0) fL MCH (25.0-35.0) pg MCHC (31.0-37.0) g/dL RDW (11.5-15.5) % Plt Count (150-450) k/uL Neutrophils % % Lymphocytes % % Monocytes % % Eosinophils % % Basophils % % Neutrophils # (1.3-7.7) k/uL Lymphocytes # (1.0-4.8) k/uL Monocytes # (0-1.0) k/uL Eosinophils # (0-0.7) k/uL Basophils # (0-0.2) k/uL PT 10.2 (9.0-12.0) sec INR 0.9 (<1.2) APTT 22.0 (22.0-30.0) sec Sodium (137-145) mmol/L Potassium (3.5-5.1) mmol/L Chloride (98-107) mmol/L Carbon Dioxide (22-30) mmol/L Anion Gap mmol/L BUN (7-17) mg/dL Creatinine (0.52-1.04) mg/dL Est GFR (CKD-EPI)AfAm (>60 ml/min/1.73 sqM) Est GFR (CKD-EPI)NonAf (>60 ml/min/1.73 sqM) Glucose (74-99) mg/dL Plasma Lactic Acid Valerio 1.4 (0.7-2.0) mmol/L Calcium (8.4-10.2) mg/dL Phosphorus (2.5-4.5) mg/dL Magnesium (1.6-2.3) mg/dL Total Bilirubin (0.2-1.3) mg/dL AST (14-36) U/L ALT (9-52) U/L Alkaline Phosphatase (38-126) U/L Total Creatine Kinase (30-135) U/L CK-MB (CK-2) (0.0-2.4) ng/mL CK-MB (CK-2) Rel Index Troponin I (0.000-0.034) ng/mL Total Protein (6.3-8.2) g/dL Albumin (3.5-5.0) g/dL Lipase 65 (23-300) U/L Urine Color Urine Appearance (Clear) Urine pH (5.0-8.0) Ur Specific [place] (1.001-1.035) Urine Protein (Negative) Urine Glucose (UA) (Negative) Urine Ketones (Negative) Urine Blood (Negative) Urine Nitrite (Negative) Urine Bilirubin (Negative) Urine Urobilinogen (<2.0) mg/dL Ur Leukocyte Esterase (Negative) Urine WBC (0-5) /hpf Ur Squamous Epith Cells (0-4) /hpf Urine Mucus (None) /hpf 02/13/18 Range/Units 09:04 WBC (3.8-10.6) k/uL RBC (3.80-5.40) m/uL Hgb (11.4-16.0) gm/dL Hct (34.0-46.0) % MCV (80.0-100.0) fL MCH (25.0-35.0) pg MCHC (31.0-37.0) g/dL RDW (11.5-15.5) % Plt Count (150-450) k/uL Neutrophils % % Lymphocytes % % Monocytes % % Eosinophils % % Basophils % % Neutrophils # (1.3-7.7) k/uL Lymphocytes # (1.0-4.8) k/uL Monocytes # (0-1.0) k/uL Eosinophils # (0-0.7) k/uL Basophils # (0-0.2) k/uL PT (9.0-12.0) sec INR (<1.2) APTT (22.0-30.0) sec Sodium (137-145) mmol/L Potassium (3.5-5.1) mmol/L Chloride (98-107) mmol/L Carbon Dioxide (22-30) mmol/L Anion Gap mmol/L BUN (7-17) mg/dL Creatinine (0.52-1.04) mg/dL Est GFR (CKD-EPI)AfAm (>60 ml/min/1.73 sqM) Est GFR (CKD-EPI)NonAf (>60 ml/min/1.73 sqM) Glucose (74-99) mg/dL Plasma Lactic Acid Valerio (0.7-2.0) mmol/L Calcium (8.4-10.2) mg/dL Phosphorus (2.5-4.5) mg/dL Magnesium (1.6-2.3) mg/dL Total Bilirubin (0.2-1.3) mg/dL AST (14-36) U/L ALT (9-52) U/L Alkaline Phosphatase (38-126) U/L Total Creatine Kinase (30-135) U/L CK-MB (CK-2) (0.0-2.4) ng/mL CK-MB (CK-2) Rel Index Troponin I (0.000-0.034) ng/mL Total Protein (6.3-8.2) g/dL Albumin (3.5-5.0) g/dL Lipase (23-300) U/L Urine Color Yellow Urine Appearance Cloudy H (Clear) Urine pH 5.5 (5.0-8.0) Ur Specific [place] 1.021 (1.001-1.035) Urine Protein 1+ H (Negative) Urine Glucose (UA) Negative (Negative) Urine Ketones Negative (Negative) Urine Blood Negative (Negative) Urine Nitrite Negative (Negative) Urine Bilirubin Negative (Negative) Urine Urobilinogen <2.0 (<2.0) mg/dL Ur Leukocyte Esterase Large H (Negative) Urine WBC 92 H (0-5) /hpf Ur Squamous Epith Cells 3 (0-4) /hpf Urine Mucus Many H (None) /hpf - EKG Data -: EKG Interpreted by Me (EKS shows NST rate 66 [place] 140 QRS 72 QTc 415) - Radiology Data Radiology results: report reviewed (Ultrasound gallbladder is negative for acute disease), image reviewed Disposition Clinical Impression: Gastroenteritis, Dehydration, Nausea & vomiting, UTI (urinary tract infection) , Weakness Disposition: HOME SELF-CARE Condition: Good Instructions: Acute Nausea and Vomiting (ED), Urinary Tract Infection in Women (ED) Is patient prescribed a controlled substance at d/c from ED?: No Referrals: Dae Fowler MD [Primary Care Provider] - 1-2 days
[2018-02-13 09:19] LABS: Basophils % (A) 0 %; Eosinophils # (A) 0.2 k/uL (0-0.7); Eosinophils % (A) 3 %; HCT 46.4 % (34.0-46.0); HGB 14.6 gm/dL (11.4-16.0); Lymphocytes # (A) 1.4 k/uL (1.0-4.8); Lymphocytes % (A) 24 %; MCH 27.2 pg (25.0-35.0); MCHC 31.4 g/dL (31.0-37.0); MCV 86.4 fL (80.0-100.0); Mean Platelet Volume 6.7; Monocytes # (A) 0.6 k/uL (0-1.0); Monocytes % (A) 10 %; Neutrophils # (A) 3.4 k/uL (1.3-7.7); Neutrophils % (A) 59 %; Platelet Count 355 k/uL (150-450); RBC 5.37 m/uL (3.80-5.40); RDW 13.6 % (11.5-15.5); WBC 5.8 k/uL (3.8-10.6)
[2018-02-13 09:20] LABS: Albumin 4.3 g/dL (3.5-5.0); Calcium 9.7 mg/dL (8.4-10.2); Magnesium 2.1 mg/dL (1.6-2.3); Potassium 5.1 mmol/L (3.5-5.1); Total Bilirubin 0.7 mg/dL (0.2-1.3); Total Protein 7.6 g/dL (6.3-8.2)
[2018-02-13 09:25] LABS: Appearance,Urine Cloudy (Clear); Bilirubin,Urine Negative (Negative); Blood,Urine Negative (Negative); Color,Urine Yellow; Glucose,Urine (UA) Negative (Negative); Ketones,Urine Negative (Negative); Leukocyte Esterase,Urine Large (Negative); Mucus,Urine Many /hpf; Nitrite,Urine Negative (Negative); PH, Urine 5.5 (5.0-8.0); Protein,Urine 1+ (Negative); Specific Gravity,Urine 1.021 (1.001-1.035); Squamous Epithelial Cell,Urine 3 /hpf (0-4); Urobilinogen,Urine <2.0 mg/dL (<2.0); WBC,Urine 92 /hpf (0-5)
[2018-02-13 09:29] LABS: INR 0.9 (<1.2); Prothrombin Time 10.2 sec (9.0-12.0)
[2018-02-13 09:33] LABS: Creatine Kinase 41 U/L (30-135)
[2018-02-13 09:46] LABS: Creatine Kinase MB <0.2 ng/mL (0.0-2.4); Troponin I <0.012 ng/mL (0.000-0.034)
[2018-02-13] MEDS ORDERED: cefTRIAXone 2,000 MG in SODIUM CHLORIDE 0.9% 100 ML IVPB STA (10:01)
--- NOTE | 2018-02-13 11:37 | US ---
EXAMINATION TYPE: US gallbladder DATE OF EXAM: 02/13/2018 COMPARISON: NONE CLINICAL HISTORY: Pain. Fever, chills, N&V x 4 days; Right lateral abdomen pain EXAM MEASUREMENTS: Liver Length: 13.1 cm Gallbladder Wall: 0.1 cm CBD: 0.4 cm Right Kidney: 10.1 x 5.6 x 4.4 cm Pancreas: hyperechoic and tail obscured by overlying bowel gas Liver: attenuated posteriorly, and is fatty Gallbladder: wnl Evidence for sonographic Nolasco's sign: no CBD: wnl Right Kidney: No hydronephrosis or masses seen IMPRESSION: 1. Hepatic steatosis. Otherwise unremarkable study.
[2018-02-13 12:27] VITALS: BP 122/95; PULSE 74; TEMP 97.2
== END 2018-02-13 12:26 | disposition home or self-care (01) ==
LOC: EC 08:06
DX: K52.9 Noninfective gastroenteritis and colitis, unspecified (principal); E86.0 Dehydration; N39.0 Urinary tract infection, site not specified; R53.1 Weakness; E07.9 Disorder of thyroid, unspecified; Z79.899 Other long term (current) drug therapy; Z88.1 Allergy status to other antibiotic agents; Z88.5 Allergy status to narcotic agent; Z88.8 Allergy status to other drugs, medicaments and biological substances; Z90.49 Acquired absence of other specified parts of digestive tract; Z53.8 Procedure and treatment not carried out for other reasons
CPT/HCPCS: 36415; 93005; 80053; 82550; 82553; 83605; 83690; 83735; 84100; 84484; 85025; 85610; 85730; 81001; 87086; 76705; 99285; 96365; 96375; 96360; 96361; J2405; J0696

== ENCOUNTER 2018-05-22 20:44 | Emergency (ER) | payer MEDICARE, BC ==
[2018-05-22 20:55] VITALS: TEMP 98.4
[2018-05-22] MEDS ORDERED: ONDANSETRON 4 MG/2 ML VIAL IVP STA (21:13)
[2018-05-22] MEDS ORDERED: SODIUM CHLORIDE 0.9% 1,000 ML IV STA (21:13)
[2018-05-22] MEDS ORDERED: IPRATROPIUM-ALBUTEROL 3 ML NEB INHALATION STA (21:14)
[2018-05-22 21:58] LABS: Basophils # (A) 0.1 k/uL (0-0.2); Basophils % (A) 1 %; Eosinophils # (A) 0.2 k/uL (0-0.7); Eosinophils % (A) 2 %; HCT 42.4 % (34.0-46.0); HGB 14.1 gm/dL (11.4-16.0); Lymphocytes % (A) 35 %; MCH 27.7 pg (25.0-35.0); MCHC 33.2 g/dL (31.0-37.0); MCV 83.5 fL (80.0-100.0); Mean Platelet Volume 7.9; Monocytes # (A) 0.7 k/uL (0-1.0); Monocytes % (A) 9 %; Neutrophils # (A) 4.5 k/uL (1.3-7.7); Neutrophils % (A) 52 %; Platelet Count 354 k/uL (150-450); RBC 5.09 m/uL (3.80-5.40); RDW 13.7 % (11.5-15.5); WBC 8.6 k/uL (3.8-10.6)
[2018-05-22 22:09] LABS: INR 0.9 (<1.2); Partial Thromboplastin Time 22.9 sec (22.0-30.0); Prothrombin Time 9.9 sec (9.0-12.0)
--- NOTE | 2018-05-22 22:10 | ED ---
General Adult HPI - General Chief complaint: Upper Respiratory Infection Stated complaint: OLAF Nausea Time Seen by Provider: 05/22/18 21:01 Source: patient Mode of arrival: ambulatory Limitations: no limitations - History of Present Illness Initial comments: 58-year-old female patient presents to the emergency department today for evaluation of chest tightness, shortness breath, and cough. Patient states the symptoms around 1:30 this afternoon and have progressively worsened since onset. States that upon arrival here she did have 2 episodes of vomiting. She denies any abdominal pain. She denies any fevers or chills with this. Denies any nasal congestion, nasal drainage, or sore throat. Patient states she has had bronchitis in the past and this is felt similar. She denies history of smoking. Denies any personal cardiac history, but does have family history of coronary artery disease. Patient denies any recent rash, chest pain, abdominal pain, nausea, vomiting, diarrhea, constipation, back pain, numbness, tingling, dizziness, weakness, hematuria, dysuria, urinary urgency, urinary frequency, headache, visual changes, or any other complaints. - Related Data Home Medications Medication Instructions Recorded Confirmed Diazepam [Valium] 2 mg PO TID PRN 08/23/16 05/22/18 Levothyroxine Sodium [Synthroid] 125 mcg PO DAILY 02/13/18 05/22/18 Multivitamins, Thera [Multivitamin 1 tab PO DAILY 05/22/18 05/22/18 (formulary)] Previous Rx's Medication Instructions Recorded Ondansetron Odt [Zofran ODT] 4 mg PO Q8HR PRN #30 tab 02/13/18 Albuterol Sulfate [Proair Hfa] 1 - 2 puff INHALATION Q6HR PRN #1 05/22/18 inhaler Promethazine 6.25MG/5Ml [Phenergan 6.25 mg PO Q6H #100 ml 05/22/18 Syrup] predniSONE 50 mg PO DAILY #5 tablet 05/22/18 Allergies Allergy/AdvReac Type Severity Reaction Status Date / Time ciprofloxacin Allergy Rash/Hives Verified 05/22/18 21:35 codeine Allergy Rapid Verified 05/22/18 21:35 Heart Rate hydrocodone bitartrate Allergy Rapid Verified 05/22/18 21:35 [From [place]] Heart Rate meperidine HCl [From Demerol] Allergy Rapid Verified 05/22/18 21:35 Heart Rate propoxyphene napsylate Allergy Rapid Verified 05/22/18 21:35 [From Darvocet-N 100] Heart Rate Review of Systems ROS Statement: Those systems with pertinent positive or pertinent negative responses have been documented in the HPI. ROS Other: All systems not noted in ROS Statement are negative. Past Medical History Past Medical History: Thyroid Disorder Additional Past Medical History / Comment(s): cervical vertigo, meniere's disease, hypercausis History of Any Multi-Drug Resistant Organisms: None Reported Past Surgical History: Appendectomy, Hernia Repair, Orthopedic Surgery, Tubal Ligation Additional Past Surgical History / Comment(s): neck surgery. Has a plate in her neck C3-C8 Additional Past Anesthesia/Blood Transfusion Reaction / Comment(s): Coded while having surgery Past Psychological History: Anxiety Smoking Status: Never smoker Past Alcohol Use History: None Reported Past Drug Use History: None Reported - Past Family History Father Family Medical History: Cancer Additional Family Medical History / Comment(s): Prostate CA, Anxiety Mother Family Medical History: COPD, Diabetes Mellitus Additional Family Medical History / Comment(s): Colon CA, Triple bypass, kidney failure, anxiety, depression, tumor behind her left eye General Exam Limitations: no limitations General appearance: alert, in no apparent distress, other (This is a well- developed, well-nourished adult female patient in no acute distress. Vital signs upon presentation are temperature 98.4F, pulse 91, respirations 22, blood pressure 146/76, pulse ox 98% on room air.) Eye exam: Present: normal appearance, PERRL, EOMI. Absent: scleral icterus, conjunctival injection, periorbital swelling ENT exam: Present: normal exam, normal oropharynx, mucous membranes moist Respiratory exam: Present: normal lung sounds bilaterally. Absent: respiratory distress, wheezes, rales, rhonchi, stridor Cardiovascular Exam: Present: regular rate, normal rhythm, normal heart sounds. Absent: systolic murmur, diastolic murmur, rubs, gallop, clicks GI/Abdominal exam: Present: soft, normal bowel sounds. Absent: distended, tenderness, guarding, rebound, rigid Neurological exam: Present: alert, oriented X3, CN II-XII intact Psychiatric exam: Present: normal affect, normal mood Skin exam: Present: warm, dry, intact, normal color. Absent: rash Course Vital Signs 05/22/18 05/22/18 05/22/18 20:52 22:29 22:36 Temperature 98.4 F Pulse Rate 91 92 92 Respiratory 22 Rate Blood Pressure 146/76 O2 Sat by Pulse 98 Oximetry 05/22/18 23:21 Temperature 98.4 F Pulse Rate 93 Respiratory 18 Rate Blood Pressure 136/72 O2 Sat by Pulse 98 Oximetry EKG Findings - EKG Comments: EKG Findings:: EKG obtained at 2139 shows normal sinus rhythm with a ventricular rate is 78, [place] interval 142, QRS duration 76, QT 374, QTC 426. No evidence of ST elevation or depression. Medical Decision Making - Medical Decision Making 58-year-old female patient presents to the emergency department today for evaluation of cough, chest tightness, and shortness of breath. Physical examination is relatively unremarkable. Lungs are clear to auscultation with good air movement. Patient is no chest wall tenderness. Labs reviewed and were unremarkable, troponin negative. EKG shows normal sinus rhythm with no evidence of ST elevation or depression. Patient symptoms are consistent with acute bronchitis. We'll discharge home with a prescription for pro-air, prednisone, and cough medication. We did discuss that this is most likely due to a virus antibiotics will be held at this time. She is instructed to follow-up with her primary care physician for recheck in 1-2 days. Return parameters were discussed in detail. She verbalizes understanding and agrees this plan. - Lab Data Result diagrams: 05/22/18 21:45 05/22/18 21:45 Lab Results 05/22/18 05/22/18 05/22/18 Range/Units 21:45 21:45 21:45 WBC 8.6 (3.8-10.6) k/uL RBC 5.09 (3.80-5.40) m/uL Hgb 14.1 (11.4-16.0) gm/dL Hct 42.4 (34.0-46.0) % MCV 83.5 (80.0-100.0) fL MCH 27.7 (25.0-35.0) pg MCHC 33.2 (31.0-37.0) g/dL RDW 13.7 (11.5-15.5) % Plt Count 354 (150-450) k/uL Neutrophils % 52 % Lymphocytes % 35 % Monocytes % 9 % Eosinophils % 2 % Basophils % 1 % Neutrophils # 4.5 (1.3-7.7) k/uL Lymphocytes # 3.0 (1.0-4.8) k/uL Monocytes # 0.7 (0-1.0) k/uL Eosinophils # 0.2 (0-0.7) k/uL Basophils # 0.1 (0-0.2) k/uL PT 9.9 (9.0-12.0) sec INR 0.9 (<1.2) APTT 22.9 (22.0-30.0) sec Sodium 142 (137-145) mmol/L Potassium 4.6 (3.5-5.1) mmol/L Chloride 105 (98-107) mmol/L Carbon Dioxide 29 (22-30) mmol/L Anion Gap 8 mmol/L BUN 9 (7-17) mg/dL Creatinine 0.67 (0.52-1.04) mg/dL Est GFR (CKD-EPI)AfAm >90 (>60 ml/min/1.73 sqM) Est GFR (CKD-EPI)NonAf >90 (>60 ml/min/1.73 sqM) Glucose 97 (74-99) mg/dL Calcium 10.3 H (8.4-10.2) mg/dL Magnesium 2.1 (1.6-2.3) mg/dL Total Bilirubin 0.5 (0.2-1.3) mg/dL AST 31 (14-36) U/L ALT 47 (9-52) U/L Alkaline Phosphatase 76 (38-126) U/L Troponin I (0.000-0.034) ng/mL Total Protein 7.2 (6.3-8.2) g/dL Albumin 4.2 (3.5-5.0) g/dL Amylase 48 (30-110) U/L Lipase 98 (23-300) U/L 05/22/18 Range/Units 21:45 WBC (3.8-10.6) k/uL RBC (3.80-5.40) m/uL Hgb (11.4-16.0) gm/dL Hct (34.0-46.0) % MCV (80.0-100.0) fL MCH (25.0-35.0) pg MCHC (31.0-37.0) g/dL RDW (11.5-15.5) % Plt Count (150-450) k/uL Neutrophils % % Lymphocytes % % Monocytes % % Eosinophils % % Basophils % % Neutrophils # (1.3-7.7) k/uL Lymphocytes # (1.0-4.8) k/uL Monocytes # (0-1.0) k/uL Eosinophils # (0-0.7) k/uL Basophils # (0-0.2) k/uL PT (9.0-12.0) sec INR (<1.2) APTT (22.0-30.0) sec Sodium (137-145) mmol/L Potassium (3.5-5.1) mmol/L Chloride (98-107) mmol/L Carbon Dioxide (22-30) mmol/L Anion Gap mmol/L BUN (7-17) mg/dL Creatinine (0.52-1.04) mg/dL Est GFR (CKD-EPI)AfAm (>60 ml/min/1.73 sqM) Est GFR (CKD-EPI)NonAf (>60 ml/min/1.73 sqM) Glucose (74-99) mg/dL Calcium (8.4-10.2) mg/dL Magnesium (1.6-2.3) mg/dL Total Bilirubin (0.2-1.3) mg/dL AST (14-36) U/L ALT (9-52) U/L Alkaline Phosphatase (38-126) U/L Troponin I <0.012 (0.000-0.034) ng/mL Total Protein (6.3-8.2) g/dL Albumin (3.5-5.0) g/dL Amylase (30-110) U/L Lipase (23-300) U/L - Radiology Data Radiology results: report reviewed, image reviewed Two-view x-ray of the chest is obtained. Report was reviewed in its entirety. Impression by Dr. Dowell shows no evidence of acute disease. Disposition Clinical Impression: Acute bronchitis Disposition: HOME SELF-CARE Condition: Good Instructions (If sedation given, give patient instructions): Acute Bronchitis (ED) Additional Instructions: Use medications as directed. Follow-up with your primary care physician for recheck in 1-2 days. Return to the emergency department immediately for any new, worsening, or concerning symptoms. Prescriptions: Promethazine 6.25MG/5Ml [Phenergan Syrup] 6.25 mg PO Q6H #100 ml predniSONE 50 mg PO DAILY #5 tablet Albuterol Sulfate [Proair Hfa] 1 - 2 puff INHALATION Q6HR PRN #1 inhaler PRN Reason: Shortness Of Breath Is patient prescribed a controlled substance at d/c from ED?: No Referrals: Dae Fowler MD [Primary Care Provider] - 1-2 days Time of Disposition: 23:05
[2018-05-22 22:11] LABS: ALT 47 U/L (9-52); AST 31 U/L (14-36); Albumin 4.2 g/dL (3.5-5.0); Alkaline Phosphatase 76 U/L (38-126); Amylase 48 U/L (30-110); Anion Gap 8 mmol/L; Blood Urea Nitrogen 9 mg/dL (7-17); Calcium 10.3 mg/dL (8.4-10.2); Carbon Dioxide 29 mmol/L (22-30); Chloride 105 mmol/L (98-107); Glucose 97 mg/dL (74-99); Lipase 98 U/L (23-300); Magnesium 2.1 mg/dL (1.6-2.3); Potassium 4.6 mmol/L (3.5-5.1); Sodium 142 mmol/L (137-145); Total Bilirubin 0.5 mg/dL (0.2-1.3); Total Protein 7.2 g/dL (6.3-8.2)
--- NOTE | 2018-05-22 22:29 | XR ---
History: ITS.REASON XR Reason: Chest Pain Exam: XR CXR 2 VIEWS Comparison: 02/06/2017 FINDINGS: The lungs are clear. The cardiac and mediastinal contours are within limits. Again note of previous anterior cervical disc fusion. IMPRESSION: No evidence of acute disease.
[2018-05-22] MEDS ORDERED: predniSONE 50 MG TAB PO STA (23:06)
[2018-05-22 23:23] VITALS: BP 136/72; PULSE 93; RESP 18
== END 2018-05-22 23:23 | disposition home or self-care (01) ==
LOC: EC 20:44
DX: J20.9 Acute bronchitis, unspecified (principal); E07.9 Disorder of thyroid, unspecified; F41.9 Anxiety disorder, unspecified; Z79.890 Hormone replacement therapy; Z79.899 Other long term (current) drug therapy; Z88.1 Allergy status to other antibiotic agents; Z88.5 Allergy status to narcotic agent
CPT/HCPCS: 36415; 94640; 93005; 80053; 82150; 83690; 83735; 84484; 85025; 85610; 85730; 71046; 99285; 96374; 96361 ×2; J2405; J7512

== ENCOUNTER 2018-05-24 08:11 | Inpatient (IN) | payer MEDICARE, BC ==
[2018-05-24] MEDS ORDERED: IBUPROFEN 600 MG TAB PO STA (08:48)
[2018-05-24] MEDS ORDERED: ONDANSETRON 4 MG/2 ML VIAL IVP STA (08:48)
[2018-05-24] MEDS ORDERED: ACETAMINOPHEN TAB 500 MG TAB PO STA (08:48)
--- NOTE | 2018-05-24 08:52 | ED ---
General Adult HPI - General Chief complaint: Syncope Stated complaint: dizziness Time Seen by Provider: 05/24/18 08:11 Source: patient, RN notes reviewed Mode of arrival: wheelchair Limitations: no limitations - History of Present Illness Initial comments: This is a 58-year-old female presents emergency Department after syncopal episode. Patient states 2 days ago she was diagnosed with bronchitis. Patient states she continues to have a fever and this morning she got up off the couch because she was going to the bathroom. Patient states she passed out on the floor. She states she did not injure herself when she passed out. Patient states she did not have any chest pain difficulty breathing or shortness of breath prior to the fall. Patient states she had a little bit fluttering throughout the night but did not have any prior to the fall that she remembers. Patient states since then she just feels congested in her face has no chest pain difficult breathing shortness of breath. Patient states she has still had a fever since she was diagnosed with bronchitis. Patient denies any diarrhea. Patient states she has been dry heaving all night long. Patient denies headache but states she has facial pressure. Patient denies sore throat. - Related Data Home Medications Medication Instructions Recorded Confirmed Diazepam [Valium] 2 mg PO TID PRN 08/23/16 05/24/18 Levothyroxine Sodium [Synthroid] 125 mcg PO DAILY 02/13/18 05/24/18 Multivitamins, Thera [Multivitamin 1 tab PO DAILY 05/22/18 05/24/18 (formulary)] Albuterol Sulfate [Proair Hfa] 1 - 2 puff INHALATION RT-Q6H PRN 05/24/1808/06 Previous Rx's Medication Instructions Recorded Ondansetron Odt [Zofran ODT] 4 mg PO Q8HR PRN #30 tab 02/13/18 Promethazine 6.25MG/5Ml [Phenergan 6.25 mg PO Q6H #100 ml 05/22/18 Syrup] predniSONE 50 mg PO DAILY #5 tablet 05/22/18 Allergies Allergy/AdvReac Type Severity Reaction Status Date / Time ciprofloxacin Allergy Rash/Hives Verified 05/24/18 09:01 codeine Allergy Rapid Verified 05/24/18 09:01 Heart Rate hydrocodone bitartrate Allergy Rapid Verified 05/24/18 09:01 [From [place]] Heart Rate meperidine HCl [From Demerol] Allergy Rapid Verified 05/24/18 09:01 Heart Rate propoxyphene napsylate Allergy Rapid Verified 05/24/18 09:01 [From Darvocet-N 100] Heart Rate Review of Systems ROS Statement: Those systems with pertinent positive or pertinent negative responses have been documented in the HPI. ROS Other: All systems not noted in ROS Statement are negative. Past Medical History Past Medical History: Thyroid Disorder Additional Past Medical History / Comment(s): cervical vertigo, meniere's disease, hypercausis History of Any Multi-Drug Resistant Organisms: None Reported Past Surgical History: Appendectomy, Hernia Repair, Orthopedic Surgery, Tubal Ligation Additional Past Surgical History / Comment(s): neck surgery. Has a plate in her neck C3-C8 Additional Past Anesthesia/Blood Transfusion Reaction / Comment(s): Coded while having surgery Past Psychological History: Anxiety Smoking Status: Never smoker Past Alcohol Use History: None Reported Past Drug Use History: None Reported - Past Family History Father Family Medical History: Cancer Additional Family Medical History / Comment(s): Prostate CA, Anxiety Mother Family Medical History: COPD, Diabetes Mellitus Additional Family Medical History / Comment(s): Colon CA, Triple bypass, kidney failure, anxiety, depression, tumor behind her left eye General Exam - General Exam Comments Initial Comments: GENERAL: Patient is well-developed and well-nourished. Patient is nontoxic and well- hydrated and is in mild distress. ENT: Neck is soft and supple. No significant lymphadenopathy is noted. Oropharynx is clear. Moist mucous membranes. Neck has full range of motion without eliciting any pain. EYES: The sclera were anicteric and conjunctiva were pink and moist. Extraocular movements were intact and pupils were equal round and reactive to light. Eyelids were unremarkable. PULMONARY: Unlabored respirations. Good breath sounds bilaterally. No audible rales rhonchi or wheezing was noted. CARDIOVASCULAR: There is a regular rate and rhythm without any murmurs gallops or rubs. ABDOMEN: Soft and nontender with normal bowel sounds. No palpable organomegaly was noted. There is no palpable pulsatile mass. SKIN: Skin is clear with no lesions or rashes and otherwise unremarkable. NEUROLOGIC: Patient is alert and oriented x3. Cranial nerves II through XII are grossly intact. Motor and sensory are also intact. Normal speech, volume and content. Symmetrical smile. MUSCULOSKELETAL: Normal extremities with adequate strength and full range of motion. No lower extremity swelling or edema. No calf tenderness. LYMPHATICS: No significant lymphadenopathy is noted PSYCHIATRIC: Normal psychiatric evaluation. Limitations: no limitations Course Vital Signs 05/24/18 05/24/18 05/24/18 08:14 08:38 09:00 Temperature 101.1 F H Pulse Rate 106 H 98 Respiratory 18 16 Rate Blood Pressure 128/75 129/81 129/81 O2 Sat by Pulse 96 98 98 Oximetry 05/24/18 09:30 Temperature Pulse Rate 105 H Respiratory 16 Rate Blood Pressure 126/62 O2 Sat by Pulse 96 Oximetry Medical Decision Making - Medical Decision Making EKG shows sinus tachycardia at [address] interval 132 QRS 72 QTC intervals is 308 QTC is 405 per patient's EKG shows no ST segment elevation or depression or T wave abnormalities are noted. Patient's chest x-ray shows no acute abnormality. Patient had influenza A and an elevated troponin. I spoke with Dr. Kim he agreed to admit the patient and consult cardiology. I spoke with Dr. Rubio and he did not want any heparin on the patient because he believes it was myocarditis secondary to influenza. - Lab Data Result diagrams: 05/24/18 09:06 05/24/18 09:06 Lab Results 05/24/18 05/24/18 05/24/18 Range/Units 09:06 09:06 09:06 WBC 7.1 (3.8-10.6) k/uL RBC 4.57 (3.80-5.40) m/uL Hgb 13.0 (11.4-16.0) gm/dL Hct 38.3 (34.0-46.0) % MCV 83.8 (80.0-100.0) fL MCH 28.4 (25.0-35.0) pg MCHC 33.9 (31.0-37.0) g/dL RDW 14.0 (11.5-15.5) % Plt Count 290 (150-450) k/uL Neutrophils % 73 % Lymphocytes % 12 % Monocytes % 12 % Eosinophils % 1 % Basophils % 0 % Neutrophils # 5.2 (1.3-7.7) k/uL Lymphocytes # 0.9 L (1.0-4.8) k/uL Monocytes # 0.9 (0-1.0) k/uL Eosinophils # 0.1 (0-0.7) k/uL Basophils # 0.0 (0-0.2) k/uL PT (9.0-12.0) sec INR (<1.2) APTT (22.0-30.0) sec Sodium 136 L (137-145) mmol/L Potassium 4.3 (3.5-5.1) mmol/L Chloride 102 (98-107) mmol/L Carbon Dioxide 25 (22-30) mmol/L Anion Gap 9 mmol/L BUN 11 (7-17) mg/dL Creatinine 0.84 (0.52-1.04) mg/dL Est GFR (CKD-EPI)AfAm 89 (>60 ml/min/1.73 sqM) Est GFR (CKD-EPI)NonAf 77 (>60 ml/min/1.73 sqM) Glucose 97 (74-99) mg/dL Plasma Lactic Acid Valerio (0.7-2.0) mmol/L Calcium 9.1 (8.4-10.2) mg/dL Total Bilirubin 0.4 (0.2-1.3) mg/dL AST 34 (14-36) U/L ALT 39 (9-52) U/L Alkaline Phosphatase 67 (38-126) U/L Troponin I (0.000-0.034) ng/mL Total Protein 6.4 (6.3-8.2) g/dL Albumin 3.9 (3.5-5.0) g/dL Influenza Type A RNA Detected H (Not Detectd) Influenza Type B (PCR) Not Detected (Not Detectd) 05/24/18 05/24/18 05/24/18 Range/Units 09:06 09:06 09:06 WBC (3.8-10.6) k/uL RBC (3.80-5.40) m/uL Hgb (11.4-16.0) gm/dL Hct (34.0-46.0) % MCV (80.0-100.0) fL MCH (25.0-35.0) pg MCHC (31.0-37.0) g/dL RDW (11.5-15.5) % Plt Count (150-450) k/uL Neutrophils % % Lymphocytes % % Monocytes % % Eosinophils % % Basophils % % Neutrophils # (1.3-7.7) k/uL Lymphocytes # (1.0-4.8) k/uL Monocytes # (0-1.0) k/uL Eosinophils # (0-0.7) k/uL Basophils # (0-0.2) k/uL PT 10.6 (9.0-12.0) sec INR 1.0 (<1.2) APTT 23.5 (22.0-30.0) sec Sodium (137-145) mmol/L Potassium (3.5-5.1) mmol/L Chloride (98-107) mmol/L Carbon Dioxide (22-30) mmol/L Anion Gap mmol/L BUN (7-17) mg/dL Creatinine (0.52-1.04) mg/dL Est GFR (CKD-EPI)AfAm (>60 ml/min/1.73 sqM) Est GFR (CKD-EPI)NonAf (>60 ml/min/1.73 sqM) Glucose (74-99) mg/dL Plasma Lactic Acid Valerio 1.6 (0.7-2.0) mmol/L Calcium (8.4-10.2) mg/dL Total Bilirubin (0.2-1.3) mg/dL AST (14-36) U/L ALT (9-52) U/L Alkaline Phosphatase (38-126) U/L Troponin I 0.111 H* (0.000-0.034) ng/mL Total Protein (6.3-8.2) g/dL Albumin (3.5-5.0) g/dL Influenza Type A RNA (Not Detectd) Influenza Type B (PCR) (Not Detectd) Disposition Clinical Impression: Influenza, Elevated troponin Disposition: ADMITTED IP TO THIS HOSP Referrals: Dae Fowler MD [Primary Care Provider] - 1-2 days Time of Disposition: 10:31
[2018-05-24] MEDS: SODIUM CHLORIDE 0.9% 500 ML 500 ML IV SCH (09:00)
[2018-05-24 09:30] LABS: Basophils % (A) 0 %; Eosinophils # (A) 0.1 k/uL (0-0.7); Eosinophils % (A) 1 %; HCT 38.3 % (34.0-46.0); Lymphocytes # (A) 0.9 k/uL (1.0-4.8); Lymphocytes % (A) 12 %; MCH 28.4 pg (25.0-35.0); MCHC 33.9 g/dL (31.0-37.0); MCV 83.8 fL (80.0-100.0); Mean Platelet Volume 7.1; Monocytes # (A) 0.9 k/uL (0-1.0); Monocytes % (A) 12 %; Neutrophils # (A) 5.2 k/uL (1.3-7.7); Neutrophils % (A) 73 %; Platelet Count 290 k/uL (150-450); RBC 4.57 m/uL (3.80-5.40); WBC 7.1 k/uL (3.8-10.6)
[2018-05-24 09:40] LABS: Albumin 3.9 g/dL (3.5-5.0); Calcium 9.1 mg/dL (8.4-10.2); Potassium 4.3 mmol/L (3.5-5.1); Total Bilirubin 0.4 mg/dL (0.2-1.3); Total Protein 6.4 g/dL (6.3-8.2)
--- NOTE | 2018-05-24 09:41 | XR ---
EXAMINATION TYPE: XR chest 2V DATE OF EXAM: 05/24/2018 HISTORY: Fever. REFERENCE: Previous study dated 05/22/2018. FINDINGS: There is been a previous ACDF of the lower cervical spine. The right diaphragm. Heart size is upper limits of normal. The lungs are clear. Pleural spaces are cl ear. IMPRESSION: BORDERLINE CARDIOMEGALY.
[2018-05-24 09:46] LABS: Partial Thromboplastin Time 23.5 sec (22.0-30.0); Prothrombin Time 10.6 sec (9.0-12.0)
[2018-05-24] MEDS ORDERED: HEPARIN SODIUM,PORCINE 5,000 UNIT/ML 1 ML VIAL IV ONE (10:25)
[2018-05-24] MEDS ORDERED: HEPARIN SOD,PORK IN 0.45% NACL 25,000 UNIT in 0.45% NACL 1 250ML.BAG IV SCH (10:30)
[2018-05-24] MEDS ORDERED: NITROGLYCERIN SL TABS 0.4 MG TAB SUBLINGUAL PRN (10:34)
[2018-05-24] MEDS: NITROGLYCERIN OINT 1 INCH/GM PACKET TOPICAL SCH ×3 (13:10→23:09)
[2018-05-24 13:25] LABS: Appearance,Urine Clear (Clear); Bilirubin,Urine Negative (Negative); Blood,Urine Negative (Negative); Color,Urine Yellow; Glucose,Urine (UA) Negative (Negative); Ketones,Urine Negative (Negative); Leukocyte Esterase,Urine Negative (Negative); Nitrite,Urine Negative (Negative); Protein,Urine Trace (Negative); Specific Gravity,Urine 1.016 (1.001-1.035); Urobilinogen,Urine <2.0 mg/dL (<2.0)
[2018-05-24] MEDS: ACETAMINOPHEN TAB 500 MG TAB PO PRN ×2 (18:19→22:06)
[2018-05-24] MEDS ORDERED: ONDANSETRON 4 MG/2 ML VIAL IVP PRN (18:46)
[2018-05-24] MEDS ORDERED: ALBUTEROL NEBULIZED 2.5 MG/3 ML INHALATION PRN (21:25)
[2018-05-24] MEDS ORDERED: DIAZEPAM 2 MG TAB PO PRN (21:25)
[2018-05-24] MEDS ORDERED: guaiFENesin SYRUP 100MG/5ML 200 MG/10 ML CUP PO PRN (21:27)
[2018-05-24] MEDS ORDERED: SODIUM CHLORIDE 0.9% 1,000 ML IV SCH (21:30)
[2018-05-24] MEDS: IBUPROFEN 600 MG TAB PO PRN (23:44)
[2018-05-25 01:55] LABS: Cholesterol 169 mg/dL (<200); HDL Cholesterol 56 mg/dL (40-60); LDL Cholesterol,Calculated 96 mg/dL (0-99); Triglycerides 83 mg/dL (<150)
[2018-05-25] MEDS: NITROGLYCERIN OINT 1 INCH/GM PACKET TOPICAL SCH (06:02)
[2018-05-25] MEDS ORDERED: LEVOTHYROXINE 125 MCG TAB PO SCH (06:30)
[2018-05-25] MEDS: ACETAMINOPHEN TAB 500 MG TAB PO PRN (08:05)
[2018-05-25] MEDS: IBUPROFEN 600 MG TAB PO PRN (08:06)
[2018-05-25] MEDS ORDERED: FAMOTIDINE 20 MG TAB PO SCH (09:00)
[2018-05-25] MEDS ORDERED: ASPIRIN 325 MG TAB PO SCH (09:00)
[2018-05-25] MEDS ORDERED: OSELTAMIVIR 60 MG/10 ML ORAL SYRINGE PO SCH (09:15)
[2018-05-25 09:23] VITALS: RESP 18
--- NOTE | 2018-05-25 10:44 | P.CRDCN ---
History of Present Illness Consult date: 05/25/18 Consult reason: other (Elevated troponins) History of present illness: IMPRESSION / ASSESSMENT: Influenza A Elevated troponin secondary to Influenza Acute coronary syndrome ruled out Acute syncope secondary to influenza PLAN: Continue treatment for influenza Discontinue Nitropaste Plan outpatient follow-up for EP study HPI This is a 58-year-old female with past medical history of hypothyroidism. Patient presented to the emergency center on May 22 for chest tightness shortness of breath and cough. She was diagnosed with acute bronchitis and discharged with Phenergan, prednisone, albuterol inhaler. Patient states that she did not feel any better and continued to have fever despite treatment. She had increasing coughing and ended up passing out when she got up from a couch to get to the bathroom. Patient presented with a temperature of 101.1, heart rate 106, blood pressure 120/75. The patient states she has had some chest cramping under her left breast which is worse with movement. Patient gives history that she was told she had ventricular tachycardia by Dr. DAE Madrigal many years ago and steel layer reviewed and ruled out V. tach. She is not currently following with steel layer. Patient also related to Dr. Rubio that she had an episode of facial drooping. ROS: Reports fever chills or rigors, Reports cough, phlegm or expectoration, no nausea, vomiting or diarrhea, no hematuria, dysuria, no musculoskeletal complaints, no strokes or seizures, no skin lesions. EXAMINATION: Gen: This is a 58-year-old female. She is resting in bed and appears to be comfortable. Vital signs: Temperature 101.5, heart rate in the 80s, blood pressure 103/59, pulse ox 93% on room air. HEENT: Head is atraumatic, normocephalic. Pupils equal, round. Sclerae is anicteric. NECK: Supple. No JVD. No lymphadenopathy. No thyromegaly. LUNGS: Few scattered rhonchi. No intercostal retractions. HEART: Regular rate and rhythm. No murmur. ABDOMEN: Soft. Bowel sounds are present. No masses. No tenderness. EXTREMITIES: No pedal edema. No calf tenderness. NEUROLOGICAL: Patient is awake, alert and oriented x3. Cranial nerves 2 through 12 are grossly intact. REVIEW OF LABS, ECG & MEDICAL DATA CBC normal, electrolytes essentially normal, creatinine 0.84, liver function tests within normal limits, influenza B positive, lactic acid 1.6 Troponins 0.111, 0.074, 0.058. EKG is sinus tachycardia 104. Chest x-rays borderline cardiomegaly. Nurse practitioner note has been reviewed, I agree with documented findings and plan of care. Patient was seen and examined. Past Medical History Past Medical History: Thyroid Disorder Additional Past Medical History / Comment(s): cervical vertigo, meniere's disease, hypercausis History of Any Multi-Drug Resistant Organisms: None Reported Past Surgical History: Appendectomy, Hernia Repair, Orthopedic Surgery, Tubal Ligation Additional Past Surgical History / Comment(s): neck surgery. Has a plate in her neck C3-C8 Additional Past Anesthesia/Blood Transfusion Reaction / Comment(s): Coded while having surgery Past Psychological History: Anxiety Smoking Status: Never smoker Past Alcohol Use History: None Reported Past Drug Use History: None Reported - Past Family History Father Family Medical History: Cancer Additional Family Medical History / Comment(s): Prostate CA, Anxiety Mother Family Medical History: COPD, Diabetes Mellitus Additional Family Medical History / Comment(s): Colon CA, Triple bypass, kidney failure, anxiety, depression, tumor behind her left eye Medications and Allergies Home Medications Medication Instructions Recorded Confirmed Type Diazepam [Valium] 2 mg PO TID PRN 08/23/16 05/24/18 History Levothyroxine Sodium [Synthroid] 125 mcg PO DAILY 02/13/18 05/24/18 History Ondansetron Odt [Zofran ODT] 4 mg PO Q8HR PRN #30 tab 02/13/18 05/24/18 Rx Multivitamins, Thera [Multivitamin 1 tab PO DAILY 05/22/18 05/24/18 History (formulary)] Promethazine 6.25MG/5Ml [Phenergan 6.25 mg PO Q6H #100 ml 05/22/18 05/24/18 Rx Syrup] predniSONE 50 mg PO DAILY #5 tablet 05/22/18 05/24/18 Rx Albuterol Sulfate [Proair Hfa] 1 - 2 puff INHALATION RT-Q6H PRN 05/24/18 0 05/24/18 History Allergies Allergy/AdvReac Type Severity Reaction Status Date / Time ciprofloxacin Allergy Rash/Hives Verified 05/24/18 09:01 codeine Allergy Rapid Verified 05/24/18 09:01 Heart Rate hydrocodone bitartrate Allergy Rapid Verified 05/24/18 09:01 [From [place]] Heart Rate meperidine HCl [From Demerol] Allergy Rapid Verified 05/24/18 09:01 Heart Rate propoxyphene napsylate Allergy Rapid Verified 05/24/18 09:01 [From Darvocet-N 100] Heart Rate Physical Exam Vitals: Vital Signs Temp Pulse Pulse Resp BP BP Pulse Ox 05/25/18 08:00 87 05/25/18 07:50 80 05/25/18 03:33 98.7 F 75 18 103/59 93 L 05/25/18 00:30 100.1 F H 05/25/18 00:02 101.5 F H 95 18 121/53 92 L 05/24/18 20:45 101 F H 93 20 111/54 94 L 05/24/18 20:25 98.7 F 93 16 118/61 96 05/24/18 18:06 102.7 F H 05/24/18 16:43 100.5 F H 05/24/18 16:30 89 14 119/66 98 05/24/18 16:00 85 15 106/69 98 05/24/18 15:31 101.3 F H 05/24/18 15:30 86 20 113/74 99 05/24/18 15:00 87 20 119/80 97 05/24/18 14:30 92 22 110/93 97 05/24/18 14:00 90 22 113/60 96 05/24/18 13:30 78 16 126/65 95 05/24/18 12:30 80 13 103/62 95 05/24/18 12:00 89 20 103/62 94 L 05/24/18 11:30 76 18 116/65 93 L 05/24/18 11:00 92 22 120/56 92 L 05/24/18 10:30 104 H 22 132/64 97 05/24/18 10:00 93 24 124/71 98 05/24/18 09:30 105 H 16 126/62 96 05/24/18 09:00 98 16 129/81 98 05/24/18 08:38 129/81 98 Intake and Output 05/24/18 05/25/18 05/25/18 22:59 06:59 14:59 Intake Total 1800 Balance 1800 Intake: Amount of Fluid Infused ( 500 ml) Oral 1300 Other: Voiding Method Toilet Results 05/24/18 09:06 05/24/18 09:06 Cardiac Enzymes 05/24/18 05/24/18 05/24/18 Range/Units 09:06 09:06 14:30 AST 34 (14-36) U/L Troponin I 0.111 H* 0.074 H* (0.000-0.034) ng/mL 05/24/18 Range/Units 20:32 AST (14-36) U/L Troponin I 0.058 H* (0.000-0.034) ng/mL Coagulation 05/24/18 Range/Units 09:06 PT 10.6 (9.0-12.0) sec APTT 23.5 (22.0-30.0) sec Lipids 05/24/18 Range/Units 09:06 Triglycerides 83 (<150) mg/dL Cholesterol 169 (<200) mg/dL HDL Cholesterol 56 (40-60) mg/dL CBC 05/24/18 Range/Units 09:06 WBC 7.1 (3.8-10.6) k/uL RBC 4.57 (3.80-5.40) m/uL Hgb 13.0 (11.4-16.0) gm/dL Hct 38.3 (34.0-46.0) % Plt Count 290 (150-450) k/uL Comprehensive Metabolic Panel 05/24/18 Range/Units 09:06 Sodium 136 L (137-145) mmol/L Potassium 4.3 (3.5-5.1) mmol/L Chloride 102 (98-107) mmol/L Carbon Dioxide 25 (22-30) mmol/L BUN 11 (7-17) mg/dL Creatinine 0.84 (0.52-1.04) mg/dL Glucose 97 (74-99) mg/dL Calcium 9.1 (8.4-10.2) mg/dL AST 34 (14-36) U/L ALT 39 (9-52) U/L Alkaline Phosphatase 67 (38-126) U/L Total Protein 6.4 (6.3-8.2) g/dL Albumin 3.9 (3.5-5.0) g/dL Current Medications Generic Name Dose Route Start Last Admin Trade Name Joshuaq PRN Reason Stop Dose Admin Acetaminophen 1,000 mg 05/24/18 18:08 05/25/18 08:05 Tylenol Tab PO 1,000 mg Q6HR PRN Administration Fever and/ or Pain Albuterol Sulfate 2.5 mg 05/24/18 21:25 05/25/18 07:50 Ventolin Nebulized INHALATION 2.5 mg RT-Q6H PRN Administration Shortness Of Breath Aspirin 325 mg 05/25/18 09:00 Aspirin PO DAILY [facility] Diazepam 2 mg 05/24/18 21:25 05/24/18 22:05 Valium PO 2 mg TID PRN Administration Vertigo Famotidine 20 mg 05/25/18 09:00 Pepcid PO DAILY [facility] Guaifenesin 200 mg 05/24/18 21:27 Robitussin PO Q6H PRN Cough Sodium Chloride 1,000 mls @ 50 mls/hr 05/24/18 21:30 05/24/18 22:05 Saline 0.9% IV 50 mls/hr .Q20H BENNIE Administration Ibuprofen 600 mg 05/24/18 23:21 05/25/18 08:06 Motrin PO 600 mg Q8HR PRN Administration Fever and/ or Pain Levothyroxine Sodium 125 mcg 05/25/18 06:30 05/25/18 06:02 Synthroid PO 125 mcg 0630 BENNIE Administration Nitroglycerin 1 inch 05/24/18 12:00 05/25/18 06:02 Nitro-Bid Oint TOPICAL 1 inch Q6HR [facility] Administration Nitroglycerin 0.4 mg 05/24/18 10:34 Nitrostat SUBLINGUAL Q5M PRN Chest Pain Ondansetron HCl 4 mg 05/24/18 18:46 05/24/18 20:31 Zofran IVP 4 mg Q6HR PRN Administration Nausea And Vomiting Intake and Output 05/24/18 05/25/18 05/25/18 22:59 06:59 14:59 Intake Total 1800 Balance 1800 Intake: Amount of Fluid Infused ( 500 ml) Oral 1300 Other: Voiding Method Toilet 05/24/18 09:06 05/24/18 09:06
--- NOTE | 2018-05-25 12:22 | P.PN ---
Subjective Patient interviewed and examined Currently she is being treated for acute bronchitis However she carries a diagnosis of tachycardia and has recurrent palpitations Few weeks back she also noted left facial drooping Once her initial improves I will schedule her for an EP study to see if she has any inducible supraventricular or ventricular tachyarrhythmias. Apparently ventricular tachycardia was documented many years back If no tachycardias is inducible then implantation of a loop monitor should be considered particularly with this history of facial droop Check TSH level Borderline troponin levels noted in the face of influenza a Kidney function normal liver function normal Total close to 169, triglycerides 83, LDL 96 and HDL 56 I will follow her as an outpatient Aspirin reduced to 81 mg by mouth daily Atorvastatin 20 mg by mouth daily initiated Objective - Vital Signs Vital signs: Vital Signs Temp 100.0 F H 05/25/18 09:22 Pulse 87 05/25/18 09:22 Resp 18 05/25/18 09:22 BP 114/62 05/25/18 09:22 Pulse Ox 96 05/25/18 09:22 Intake & Output 05/24/18 05/25/18 05/25/18 18:59 06:59 18:59 Intake Total 1800 240 Balance 1800 240 Weight 86.636 kg Intake: Amount of Fluid Infused ( 500 ml) Oral 1300 240 Other: Voiding Method Toilet - Labs CBC & Chem 7: 05/24/18 09:06 05/24/18 09:06 Labs: Abnormal Lab Results - Last 24 Hours (Table) 05/24/18 05/24/18 05/24/18 Range/Units 12:53 14:30 20:32 Troponin I 0.074 H* 0.058 H* (0.000-0.034) ng/mL Urine Protein Trace H (Negative) Microbiology - Last 24 Hours (Table) 05/24/18 09:06 Blood Culture - Preliminary Blood No Growth after 24 hours 05/24/18 12:53 Urine Culture - Preliminary Urine,Clean Catch
[2018-05-25] MEDS ORDERED: ATORVASTATIN 20 MG TAB PO SCH (12:30)
[2018-05-25 12:50] VITALS: BP 116/60; PULSE 78; TEMP 99.2
--- NOTE | 2018-05-25 13:34 | P.HPIM ---
History of Present Illness H&P Date: 05/25/18 Chief Complaint: Cough, tachycardia, positive influenza Patient presented recently in the emergency room approximately 2 days ago with cough, nausea, vomiting, dehydration with a long-standing history of intermittent tachycardia recurrent heart palpitations approximately 2 weeks ago she noticed a left facial droop was has resolved. 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 Will discharge patient home and see her early next week in the office Review of Systems Constitutional: Reports fever, Reports malaise, Reports night sweats, Reports poor appetite Ears, nose, mouth and throat: Reports sore throat (Significant hearing loss) Breasts: Reports as per HPI Cardiovascular: Reports irregular heart beat, Reports rapid heart beat Respiratory: Reports as per HPI Gastrointestinal: Reports as per HPI Genitourinary: Reports as per HPI Menstruation: Reports as per HPI Musculoskeletal: Reports as per HPI Integumentary: Reports as per HPI Neurological: Reports as per HPI Psychiatric: Reports as per HPI Past Medical History Past Medical History: Thyroid Disorder Additional Past Medical History / Comment(s): cervical vertigo, meniere's disease, hypercausis History of Any Multi-Drug Resistant Organisms: None Reported Past Surgical History: Appendectomy, Hernia Repair, Orthopedic Surgery, Tubal Ligation Additional Past Surgical History / Comment(s): neck surgery. Has a plate in her neck C3-C8 Additional Past Anesthesia/Blood Transfusion Reaction / Comment(s): Coded while having surgery Past Psychological History: Anxiety Smoking Status: Never smoker Past Alcohol Use History: None Reported Past Drug Use History: None Reported - Past Family History Father Family Medical History: Cancer Additional Family Medical History / Comment(s): Prostate CA, Anxiety Mother Family Medical History: COPD, Diabetes Mellitus Additional Family Medical History / Comment(s): Colon CA, Triple bypass, kidney failure, anxiety, depression, tumor behind her left eye Medications and Allergies Home Medications Medication Instructions Recorded Confirmed Type Diazepam [Valium] 2 mg PO TID PRN 08/23/16 05/24/18 History Levothyroxine Sodium [Synthroid] 125 mcg PO DAILY 02/13/18 05/24/18 History Ondansetron Odt [Zofran ODT] 4 mg PO Q8HR PRN #30 tab 02/13/18 05/24/18 Rx Multivitamins, Thera [Multivitamin 1 tab PO DAILY 05/22/18 05/24/18 History (formulary)] Promethazine 6.25MG/5Ml [Phenergan 6.25 mg PO Q6H #100 ml 05/22/18 05/24/18 Rx Syrup] predniSONE 50 mg PO DAILY #5 tablet 05/22/18 05/24/18 Rx Albuterol Sulfate [Proair Hfa] 1 - 2 puff INHALATION RT-Q6H PRN 05/24/18 05/24/18 History Allergies Allergy/AdvReac Type Severity Reaction Status Date / Time ciprofloxacin Allergy Rash/Hives Verified 05/24/18 09:01 codeine Allergy Rapid Verified 05/24/18 09:01 Heart Rate hydrocodone bitartrate Allergy Rapid Verified 05/24/18 09:01 [From [place]] Heart Rate meperidine HCl [From Demerol] Allergy Rapid Verified 05/24/18 09:01 Heart Rate propoxyphene napsylate Allergy Rapid Verified 05/24/18 09:01 [From Darvocet-N 100] Heart Rate Physical Exam Osteopathic Statement: *. No significant issues noted on an osteopathic structural exam other than those noted in the History and Physical/Consult. Vitals: Vital Signs Temp Pulse Pulse Resp BP BP Pulse Ox 05/25/18 12:00 99.2 F 78 18 116/60 92 L 05/25/18 09:22 100.0 F H 87 18 114/62 96 05/25/18 08:00 87 05/25/18 07:50 80 05/25/18 03:33 98.7 F 75 18 103/59 93 L 05/25/18 00:30 100.1 F H 05/25/18 00:02 101.5 F H 95 18 121/53 92 L 05/24/18 20:45 101 F H 93 20 111/54 94 L 05/24/18 20:25 98.7 F 93 16 118/61 96 05/24/18 18:06 102.7 F H 05/24/18 16:43 100.5 F H 05/24/18 16:30 89 14 119/66 98 05/24/18 16:00 85 15 106/69 98 05/24/18 15:31 101.3 F H 05/24/18 15:30 86 20 113/74 99 05/24/18 15:00 87 20 119/80 97 05/24/18 14:30 92 22 110/93 97 05/24/18 14:00 90 22 113/60 96 05/24/18 13:30 78 16 126/65 95 Intake and Output 05/24/18 05/25/18 05/25/18 22:59 06:59 14:59 Intake Total 1800 240 Balance 1800 240 Intake: Amount of Fluid Infused ( 500 ml) Oral 1300 240 Other: Voiding Method Toilet Toilet # Voids 1 General: [Patient awake, alert and oriented times 3. Patient in no acute distress.] Mild to moderate hearing loss primarily on the left HEENT: [PERRL. EOMI. No pharyngeal erythema or exudate.] Neck: [No adenopathy.] Cardiac: [Heart regular in rate and rhythm. No S3. No S4. No clicks, rubs. No murmur.] Lungs: [Clear to auscultation bilaterally, persistent cough Abdomen: [No mass. No organomegaly. Bowel sounds presnt and normoactive in all 4 quadrants.] Extremes: [No edema no cyanosis no claudication normal pulses] : Normal female genitalia Musculoskeletal: [No joint erythema, edema or tenderness.] Skin: [No rash.] Neurologic: [No lateralizing deficits. CN II - XII grossly intact.] Lymphatic: [No adenopathy.] Results CBC & Chem 7: 05/24/18 09:06 05/24/18 09:06 Labs: Abnormal Lab Results - Last 24 Hours (Table) 05/24/18 05/24/18 05/24/18 Range/Units 12:53 14:30 20:32 Troponin I 0.074 H* 0.058 H* (0.000-0.034) ng/mL Urine Protein Trace H (Negative) Microbiology - Last 24 Hours (Table) 05/24/18 09:06 Blood Culture - Preliminary Blood No Growth after 24 hours 05/24/18 12:53 Urine Culture - Preliminary Urine,Clean Catch Thrombosis Risk Factor Assmnt - Choose All That Apply Any of the Below Risk Factors Present?: Yes Each Factor Represents 1 point: Age 41-60 years, Obesity (BMI >25) Other Risk Factors: No Other congenital or acquired thrombophilia - If yes, enter type in comment: No Thrombosis Risk Factor Assessment Total Risk Factor Score: 2 Thrombosis Risk Factor Assessment Level: Low Risk Assessment and Plan (1) Elevated troponin Current Visit: Yes Status: Acute Code(s): R74.8 - ABNORMAL LEVELS OF OTHER SERUM ENZYMES SNOMED Code(s): 854395190 (2) Influenza Current Visit: Yes Status: Acute Code(s): J11.1 - FLU DUE TO UNIDENTIFIED INFLUENZA VIRUS W OTH RESP MANIFEST SNOMED Code(s): 0261926 (3) Acute bronchitis Current Visit: No Status: Acute Code(s): J20.9 - ACUTE BRONCHITIS, UNSPECIFIED SNOMED Code(s): 50758089 Plan: Discharge home today Continue Tamiflu 75 mg 1 by mouth twice a day 5 days dispense follow-up with Dr. Fowler her Dr. Kim in 3-5 days Follow-up in Dr. Monroy and after completion of Tamiflu Time with Patient: Greater than 30
--- NOTE | 2018-05-25 13:50 | P.DS ---
Providers Date of admission: 05/24/18 10:34 Expected date of discharge: 05/25/18 Attending physician: Ghassan Kim Consults: 05/24/18 10:34 Consult Physician Urgent Consulting Provider: [facility] Consult Reason/Comments: Elevated troponin Do you want consulting provider notified?: Yes Primary care physician: Dae Fowler - Discharge Diagnosis(es) (1) Elevated troponin Current Visit: Yes Status: Acute (2) Influenza Current Visit: Yes Status: Acute (3) Acute bronchitis Current Visit: No Status: Acute Patient Condition at Discharge: Stable Plan - Discharge Summary Discharge Rx Participant: Yes New Discharge Prescriptions: New Oseltamivir [Tamiflu] 75 mg PO Q12HR #10 cap No Action Diazepam [Valium] 2 mg PO TID PRN PRN Reason: Vertigo Levothyroxine Sodium [Synthroid] 125 mcg PO DAILY Ondansetron Odt [Zofran ODT] 4 mg PO Q8HR PRN #30 tab PRN Reason: nausea/vomiting Multivitamins, Thera [Multivitamin (formulary)] 1 tab PO DAILY Promethazine 6.25MG/5Ml [Phenergan Syrup] 6.25 mg PO Q6H #100 ml predniSONE 50 mg PO DAILY #5 tablet Albuterol Sulfate [Proair Hfa] 1 - 2 puff INHALATION RT-Q6H PRN PRN Reason: Shortness Of Breath Discharge Medication List Diazepam [Valium] 2 mg PO TID PRN 08/23/16 [History] Levothyroxine Sodium [Synthroid] 125 mcg PO DAILY 02/13/18 [History] Ondansetron Odt [Zofran ODT] 4 mg PO Q8HR PRN #30 tab 02/13/18 [Rx] Multivitamins, Thera [Multivitamin (formulary)] 1 tab PO DAILY 05/22/18 [History] Promethazine 6.25MG/5Ml [Phenergan Syrup] 6.25 mg PO Q6H #100 ml 05/22/18 [Rx] predniSONE 50 mg PO DAILY #5 tablet 05/22/18 [Rx] Albuterol Sulfate [Proair Hfa] 1 - 2 puff INHALATION RT-Q6H PRN 05/24/18 [History] Oseltamivir [Tamiflu] 75 mg PO Q12HR #10 cap 05/25/18 [Rx] Follow up Appointment(s)/Referral(s): Yaw Rubio MD [STAFF PHYSICIAN] - 10 Days (Cw Operator- follow up for tachycardia. Please follow up in 1-2 weeks.) Dae Fowler MD [Primary Care Provider] - 1-2 days (Please call and make follow up appointment for next week.) Patient Instructions/Handouts: Influenza (DC), Tachycardia (ED)
[2018-05-25 14:01] LABS: T4, Free (Free Thyroxine) 1.49 ng/dL (0.78-2.19)
[2018-05-26] MEDS ORDERED: ASPIRIN 81 MG PO SCH (09:00)
== END 2018-05-25 14:19 | disposition home or self-care (01) | DRG 195 ==
LOC: EC 08:11 → 3SCARD 10:34
PROVIDERS: ADMIT Family Medicine; ATTEND Family Medicine
DX: J10.1 Influenza due to other identified influenza virus with other respiratory manifestations (principal); J20.9 Acute bronchitis, unspecified; F41.9 Anxiety disorder, unspecified; H81.09 Meniere's disease, unspecified ear; H91.92 Unspecified hearing loss, left ear; Z79.82 Long term (current) use of aspirin; Z79.890 Hormone replacement therapy; Z79.899 Other long term (current) drug therapy; Z80.0 Family history of malignant neoplasm of digestive organs; Z81.8 Family history of other mental and behavioral disorders; Z82.5 Family history of asthma and other chronic lower respiratory diseases; Z83.3 Family history of diabetes mellitus; E07.9 Disorder of thyroid, unspecified; Z86.74 Personal history of sudden cardiac arrest; Z88.1 Allergy status to other antibiotic agents; Z88.5 Allergy status to narcotic agent; R55 Syncope and collapse; Z84.1 Family history of disorders of kidney and ureter; R74.8 Abnormal levels of other serum enzymes
CPT/HCPCS: 36415; 71046; 80053; 80061; 81003; 83605; 84439; 84443; 84484; 85025; 85610; 85730; 87040; 87086; 87502; 93005; 94640; 96374; 96376; 99285

== ENCOUNTER 2018-05-26 05:50 | Emergency (ER) | payer MEDICARE, BC ==
--- NOTE | 2018-05-26 06:33 | ED ---
SOB HPI - General Chief Complaint: Shortness of Breath Stated Complaint: OLAF/Chest pressure Time Seen by Provider: 05/26/18 06:26 Source: patient Mode of arrival: wheelchair Limitations: no limitations - History of Present Illness Initial Comments: 's patient is a 58-year-old woman who presents with the complaint that she woke from sleep a couple of hours ago feeling very short of breath and like her chest was tight. The patient had been in the hospital a couple of days ago for influenza, bronchitis, and a mild elevation of her troponin level. She states that she had been feeling better and left hospital yesterday. Patient states that she had gone to bed and then awoke with the symptoms. MD Complaint: shortness of breath, cough -: hour(s) Severity: moderate Quality: dull Consistency: now resolved Improves With: upright position Worsens With: nothing Treatments Prior to Arrival: none - Related Data Home Medications Medication Instructions Recorded Confirmed Diazepam [Valium] 2 mg PO TID PRN 08/23/16 05/26/18 Levothyroxine Sodium [Synthroid] 125 mcg PO DAILY 02/13/18 05/26/18 Multivitamins, Thera [Multivitamin 1 tab PO DAILY 05/22/18 05/26/18 (formulary)] Albuterol Sulfate [Proair Hfa] 1 - 2 puff INHALATION RT-Q6H PRN 05/24/18 05/26/18 Previous Rx's Medication Instructions Recorded Ondansetron Odt [Zofran ODT] 4 mg PO Q8HR PRN #30 tab 02/13/18 Promethazine 6.25MG/5Ml [Phenergan 6.25 mg PO Q6H #100 ml 05/22/18 Syrup] predniSONE 50 mg PO DAILY #5 tablet 05/22/18 Oseltamivir [Tamiflu] 75 mg PO Q12HR #10 cap 05/25/18 Allergies Allergy/AdvReac Type Severity Reaction Status Date / Time ciprofloxacin Allergy Rash/Hives Verified 05/26/18 08:13 codeine Allergy Rapid Verified 05/26/18 08:13 Heart Rate hydrocodone bitartrate Allergy Rapid Verified 05/26/18 08:13 [From [place]] Heart Rate meperidine HCl [From Demerol] Allergy Rapid Verified 05/26/18 08:13 Heart Rate propoxyphene napsylate Allergy Rapid Verified 05/26/18 08:13 [From Darvocet-N 100] Heart Rate Review of Systems ROS Statement: Those systems with pertinent positive or pertinent negative responses have been documented in the HPI. ROS Other: All systems not noted in ROS Statement are negative. Constitutional: Reports: fever, chills, weakness ENT: Denies: ear pain, throat pain Respiratory: Reports: as per HPI, cough, dyspnea Cardiovascular: Reports: chest pain, orthopnea. Denies: palpitations, edema, syncope Gastrointestinal: Denies: abdominal pain, vomiting, diarrhea Genitourinary: Denies: dysuria, hematuria Musculoskeletal: Denies: back pain Skin: Denies: rash Neurological: Reports: headache. Denies: weakness, numbness, paresthesias Past Medical History Past Medical History: Thyroid Disorder Additional Past Medical History / Comment(s): cervical vertigo, meniere's disease, hypercausis History of Any Multi-Drug Resistant Organisms: None Reported Past Surgical History: Appendectomy, Hernia Repair, Orthopedic Surgery, Tubal Ligation Additional Past Surgical History / Comment(s): neck surgery. Has a plate in her neck C3-C8 Additional Past Anesthesia/Blood Transfusion Reaction / Comment(s): Coded while having surgery Past Psychological History: Anxiety Smoking Status: Never smoker Past Alcohol Use History: None Reported Past Drug Use History: None Reported - Past Family History Father Family Medical History: Cancer Additional Family Medical History / Comment(s): Prostate CA, Anxiety Mother Family Medical History: COPD, Diabetes Mellitus Additional Family Medical History / Comment(s): Colon CA, Triple bypass, kidney failure, anxiety, depression, tumor behind her left eye General Exam Limitations: no limitations General appearance: alert, in no apparent distress Head exam: Present: atraumatic, normocephalic Eye exam: Present: normal appearance. Absent: scleral icterus, conjunctival injection ENT exam: Present: normal oropharynx Neck exam: Present: normal inspection, full ROM Respiratory exam: Present: normal lung sounds bilaterally. Absent: respiratory distress, wheezes, rales, rhonchi, stridor Cardiovascular Exam: Present: regular rate, normal rhythm, normal heart sounds. Absent: systolic murmur, diastolic murmur, rubs, gallop GI/Abdominal exam: Present: soft. Absent: distended, tenderness, guarding, rebound Extremities exam: Present: normal inspection, normal capillary refill. Absent: pedal edema, calf tenderness Back exam: Present: normal inspection. Absent: CVA tenderness (R), CVA tenderness (L) Neurological exam: Present: alert Skin exam: Present: warm, dry, intact, normal color. Absent: rash Course Vital Signs 05/26/18 06:00 Temperature 102.1 F H Pulse Rate 85 Respiratory 22 Rate Blood Pressure 131/86 O2 Sat by Pulse 94 L Oximetry Medical Decision Making - Lab Data Result diagrams: 05/26/18 07:35 05/26/18 07:35 Lab Results 05/26/18 05/26/18 05/26/18 Range/Units 07:35 07:35 07:35 WBC 3.4 L (3.8-10.6) k/uL RBC 4.48 (3.80-5.40) m/uL Hgb 12.5 (11.4-16.0) gm/dL Hct 37.4 (34.0-46.0) % MCV 83.4 (80.0-100.0) fL MCH 27.8 (25.0-35.0) pg MCHC 33.4 (31.0-37.0) g/dL RDW 13.5 (11.5-15.5) % Plt Count 220 (150-450) k/uL Neutrophils % 54 % Lymphocytes % 37 % Monocytes % 7 % Eosinophils % 1 % Basophils % 0 % Neutrophils # 1.8 (1.3-7.7) k/uL Lymphocytes # 1.2 (1.0-4.8) k/uL Monocytes # 0.2 (0-1.0) k/uL Eosinophils # 0.0 (0-0.7) k/uL Basophils # 0.0 (0-0.2) k/uL Sodium 139 (137-145) mmol/L Potassium 3.7 (3.5-5.1) mmol/L Chloride 106 (98-107) mmol/L Carbon Dioxide 27 (22-30) mmol/L Anion Gap 6 mmol/L BUN 8 (7-17) mg/dL Creatinine 0.72 (0.52-1.04) mg/dL Est GFR (CKD-EPI)AfAm >90 (>60 ml/min/1.73 sqM) Est GFR (CKD-EPI)NonAf >90 (>60 ml/min/1.73 sqM) Glucose 100 H (74-99) mg/dL Calcium 8.6 (8.4-10.2) mg/dL Total Bilirubin 0.3 (0.2-1.3) mg/dL AST 49 H (14-36) U/L ALT 56 H (9-52) U/L Alkaline Phosphatase 65 (38-126) U/L Troponin I 0.025 (0.000-0.034) ng/mL Total Protein 5.9 L (6.3-8.2) g/dL Albumin 3.4 L (3.5-5.0) g/dL - EKG Data -: EKG Interpreted by Me EKG shows normal: sinus rhythm, axis (Normal), intervals (Normal), QRS complexes (Normal), ST-T waves (Normal) Rate: normal (Rate 78 bpm) Disposition Clinical Impression: Influenza Disposition: HOME SELF-CARE Condition: Fair Instructions (If sedation given, give patient instructions): Influenza (ED) Additional Instructions: As discussed, follow-up with Dr. Burroughs regarding the electrophysiologic studies Is patient prescribed a controlled substance at d/c from ED?: No Referrals: Dae Fowler MD [Primary Care Provider] - 1-2 days Yaw Rubio MD [STAFF PHYSICIAN] - 1-2 days
--- NOTE | 2018-05-26 07:35 | XR ---
EXAMINATION TYPE: XR chest 2V DATE OF EXAM: 05/26/2018 COMPARISON: Prior chest x-ray 05/24/2018 HISTORY: Difficulty breathing and chest pain TECHNIQUE: Frontal and lateral views of the chest are obtained. FINDINGS: Patchy densities present in the right midlung. No pneumothorax or pleural effusion. Heart is enlarged. Overlying cardiac leads. Elevation of right hemidiaphragm again noted. IMPRESSION: Probable subsegmental atelectasis. Persistent elevation right hemidiaphragm, cardiomegal y
[2018-05-26 07:50] LABS: Basophils % (A) 0 %; Eosinophils % (A) 1 %; HCT 37.4 % (34.0-46.0); HGB 12.5 gm/dL (11.4-16.0); Lymphocytes # (A) 1.2 k/uL (1.0-4.8); Lymphocytes % (A) 37 %; MCH 27.8 pg (25.0-35.0); MCHC 33.4 g/dL (31.0-37.0); MCV 83.4 fL (80.0-100.0); Mean Platelet Volume 6.7; Monocytes # (A) 0.2 k/uL (0-1.0); Monocytes % (A) 7 %; Neutrophils # (A) 1.8 k/uL (1.3-7.7); Neutrophils % (A) 54 %; Platelet Count 220 k/uL (150-450); RBC 4.48 m/uL (3.80-5.40); RDW 13.5 % (11.5-15.5); WBC 3.4 k/uL (3.8-10.6)
[2018-05-26 07:55] LABS: ALT 56 U/L (9-52); AST 49 U/L (14-36); Albumin 3.4 g/dL (3.5-5.0); Alkaline Phosphatase 65 U/L (38-126); Anion Gap 6 mmol/L; Blood Urea Nitrogen 8 mg/dL (7-17); Calcium 8.6 mg/dL (8.4-10.2); Carbon Dioxide 27 mmol/L (22-30); Chloride 106 mmol/L (98-107); Glucose 100 mg/dL (74-99); Potassium 3.7 mmol/L (3.5-5.1); Sodium 139 mmol/L (137-145); Total Bilirubin 0.3 mg/dL (0.2-1.3); Total Protein 5.9 g/dL (6.3-8.2)
[2018-05-26 08:56] VITALS: BP 122/75; PULSE 80; RESP 20; TEMP 99.9
== END 2018-05-26 08:31 | disposition home or self-care (01) ==
LOC: EC 05:50
DX: J11.1 Influenza due to unidentified influenza virus with other respiratory manifestations (principal); E07.9 Disorder of thyroid, unspecified; Z79.890 Hormone replacement therapy; Z88.1 Allergy status to other antibiotic agents; Z88.5 Allergy status to narcotic agent
CPT/HCPCS: 36415; 71046; 80053; 84484; 85025; 93005; 99285

== ENCOUNTER → 2018-10-21 | Outpatient (CLI) | payer MEDICARE, BC ==
--- NOTE | 2018-10-22 09:56 | MM ---
Reason for exam: screening (asymptomatic). Last mammogram was performed 1 year and 6 months ago. History: Patient is postmenopausal. Family history of breast cancer in maternal aunt. Benign core biopsy of the right breast. Physical Findings: A clinical breast exam by your physician is recommended on an annual basis and results should be correlated with mammographic findings. MG 3D Screening Mammo W/Cad Bilateral CC and MLO view(s) were taken. Prior study comparison: April 12, 2017, bilateral MG 3d screening mammo w/cad. December 06, 2015, bilateral MG 3d screening mammo w/cad. The breast tissue is heterogeneously dense. This may lower the sensitivity of mammography. Benign appearing bilateral calcifications. No suspicious abnormality. Right biopsy marker noted. No significant changes when compared with prior studies. ASSESSMENT: Benign, BI-RAD 2 RECOMMENDATION: Routine screening mammogram of both breasts in 1 year.
== END | disposition home or self-care (01) ==
LOC: RADMAMWWP 10:40
PROVIDERS: ATTEND Obstetrics & Gynecology
DX: Z12.31 Encounter for screening mammogram for malignant neoplasm of breast (principal)
CPT/HCPCS: 77063; 77067

== ENCOUNTER → 2020-02-16 | Outpatient (CLI) | payer MEDICARE, BC ==
--- NOTE | 2020-02-16 14:16 | MM ---
Reason for exam: screening (asymptomatic). Last mammogram was performed 1 year and 4 months ago. History: Patient is postmenopausal. Family history of breast cancer in maternal aunt. Benign core biopsy of the right breast. Physical Findings: A clinical breast exam by your physician is recommended on an annual basis and results should be correlated with mammographic findings. MG 3D Screening Mammo W/Cad Bilateral CC and MLO view(s) were taken. Prior study comparison: October 21, 2018, bilateral MG 3d screening mammo w/cad. April 12, 2017, bilateral MG 3d screening mammo w/cad. The breast tissue is heterogeneously dense. This may lower the sensitivity of mammography. Previous mammotome biopsy in the right breast. No significant changes when compared with prior studies. ASSESSMENT: Benign, BI-RAD 2 RECOMMENDATION: Routine screening mammogram of both breasts in 1 year.
== END | disposition home or self-care (01) ==
LOC: RADMAMWWP 06:58
PROVIDERS: ATTEND Obstetrics & Gynecology
DX: Z12.31 Encounter for screening mammogram for malignant neoplasm of breast (principal)
CPT/HCPCS: 77063; 77067

== ENCOUNTER → 2020-09-14 | Outpatient (CLI) | payer MEDICARE, BC ==
[2020-09-14 22:53] LABS: African American GFR (CKD) 81.1 (60.0-200.0); Albumin 4.3 g/dL (3.80-4.90); Albumin/Globulin Ratio 1.65 (1.60-3.17); Anion Gap 11.2 mmol/L (4.00-12.00); BUN/Creat Ratio 12.22 Ratio (12.00-20.00); Calcium 9.6 mg/dL (8.7-10.3); Carbon Dioxide 22.8 mmol/L (21.6-31.8); Globulin 2.6 g/dL (1.6-3.3); Potassium 4.9 mmol/L (3.5-5.5); Total Bilirubin 0.7 mg/dL (0.2-1.2); Total Protein 6.9 g/dL (6.2-8.2)
[2020-09-14 22:54] LABS: Chol/HDL Ratio 3.84; LDL Cholesterol,Calculated 124.4 mg/dL (0.0-131.0); VLDL Calculation 31.6 mg/dL (5.00-40.00)
== END | disposition home or self-care (01) ==
LOC: LABWHC1 08:09
PROVIDERS: ATTEND Nurse Practitioner Adult Health
DX: I10 Essential (primary) hypertension (principal); E78.5 Hyperlipidemia, unspecified; R00.2 Palpitations
CPT/HCPCS: 36415; 80053; 80061; 84443

== ENCOUNTER 2020-11-08 09:59 | Day surgery (SDC) | payer MEDICARE, BC ==
[2020-11-03 09:39] VITALS: BMI 34.7
[~2020-11-08 09:59] MED LIST: LACTATED RINGERS 1,000 ML IV SCH
[2020-11-08 10:38] VITALS: RESP 18; TEMP 97.6
[2020-11-08 10:54] LABS: Glucose,Whole Blood 106 mg/dL (75-99)
[2020-11-08] MEDS ORDERED: PROPOFOL 10 MG/ML 20 ML VIAL IV ONE (11:48)
--- NOTE | 2020-11-08 11:51 | P.GSHP ---
History of Present Illness H&P Date: 11/08/20 Chief Complaint: Colon cancer screening 60-year-old female here today for colonoscopy. Last colonoscopy 5-10 years ago. Family history of colon cancer in her mother. No bowel complaints. Past Medical History Past Medical History: Hearing Disorder / Deafness, Thyroid Disorder Additional Past Medical History / Comment(s): Cervical Vertigo, Meniere's Disease, Hypercausis(sound/noise sensitivity) - hard of hearing, hearing aid use, Palpitations, Pre-Diabetic. History of Any Multi-Drug Resistant Organisms: None Reported Past Surgical History: Appendectomy, Hernia Repair, Orthopedic Surgery, Tubal Ligation Additional Past Surgical History / Comment(s): Neck surgery, C3-C8, has a plate in her neck, Novasure. Past Anesthesia/Blood Transfusion Reactions: Previous Problems w/ Anesthesia Additional Past Anesthesia/Blood Transfusion Reaction / Comment(s): Coded while having surgery(This was on HHX from previously, patient was unsure what it meant, didn't remember this but said to leave it on record, was going to look into it). Hard to wake up. Vertigo. Past Psychological History: No Psychological Hx Reported Smoking Status: Never smoker Past Alcohol Use History: Rare Past Drug Use History: None Reported - Past Family History Father Family Medical History: Cancer Additional Family Medical History / Comment(s): Prostate CA, Anxiety. Mother Family Medical History: Cancer, COPD, Diabetes Mellitus Additional Family Medical History / Comment(s): Colon CA, Triple bypass, kidney failure, anxiety, depression, tumor behind her left eye. Medications and Allergies Home Medications Medication Instructions Recorded Confirmed Type Levothyroxine Sodium [Synthroid] 125 mcg PO DAILY 02/13/18 11/08/20 History Multivitamins, Thera [Multivitamin 1 tab PO DAILY 05/22/18 11/08/20 History (formulary)] Ascorbic Acid [Vitamin C] 500 mg PO DAILY 11/03/20 11/08/20 History Cholecalciferol (Vitamin D3) 12.5 mcg PO DAILY 11/03/20 11/08/20 History [Vitamin D3 (500 Iu/5 ML)] Multivitamins, Thera [Multivitamin 1 tab PO DAILY 11/03/20 11/08/20 History (formulary)] Zinc 50 mg PO DAILY 11/03/20 11/08/20 History Allergies Allergy/AdvReac Type Severity Reaction Status Date / Time ciprofloxacin Allergy Rash/Hives Verified 11/08/20 10:42 codeine Allergy Rapid Verified 11/08/20 10:42 Heart Rate hydrocodone bitartrate Allergy Rapid Verified 11/08/20 10:42 [From [place]] Heart Rate meperidine HCl [From Demerol] Allergy Rapid Verified 11/08/20 10:42 Heart Rate propoxyphene napsylate Allergy Rapid Verified 11/08/20 10:42 [From Darvocet-N 100] Heart Rate Surgical - Exam Vital Signs Temp Pulse Resp BP Pulse Ox 97.6 F 86 18 134/79 99 11/08/20 10:37 11/08/20 10:37 11/08/20 10:37 11/08/20 10:37 11/08/20 10:37 Physical exam: General: Well-developed, well-nourished HEENT: Normocephalic, sclerae nonicteric Abdomen: Nontender, nondistended Extremities: No edema Neuro: Alert and oriented Results - Labs Abnormal Lab Results - Last 24 Hours (Table) 11/08/20 Range/Units 10:51 POC Glucose (mg/dL) 106 H (75-99) mg/dL Assessment and Plan (1) Colon cancer screening Narrative/Plan: Will proceed with colonoscopy Current Visit: Yes Status: Acute Code(s): Z12.11 - ENCOUNTER FOR SCREENING FOR MALIGNANT NEOPLASM OF COLON SNOMED Code(s): 105894842
--- NOTE | 2020-11-08 12:05 | P.PCN ---
Date of Procedure: 11/08/20 Procedure(s) Performed: PREOPERATIVE DIAGNOSIS: Colon cancer screening, family history of colon cancer POSTOPERATIVE DIAGNOSIS: Normal exam PROCEDURE: Colonoscopy ANESTHESIA: MAC SURGEON: Daniel Tsang M.D. SPECIMENS: None ENDOSCOPIC PROCEDURE: The patient was placed on the endoscopy table in the left decubitus position. The Olympus colonoscope was inserted into the anus and passed under direct visualization to the base of the cecum. The appendiceal orifice was visualized. From that point the scope was slowly withdrawn inspecting all surfaces carefully. There were no neoplastic inflammatory or polypoid lesions throughout the cecum, ascending, transverse, descending, sigmoid and rectum. There was no visible diverticulosis noted. Digital rectal examination was normal. The patient was taken to the recovery room in stable condition per anesthesia guidelines. RECOMMENDATIONS: Resume diet. Follow-up colonoscopy 5 years.
[2020-11-08 12:34] VITALS: BP 132/76; PULSE 63
== END 2020-11-08 13:00 | disposition home or self-care (01) ==
LOC: ORWHC2ENDO 09:59
PROVIDERS: ATTEND Surgery
DX: Z12.11 Encounter for screening for malignant neoplasm of colon (principal); E11.9 Type 2 diabetes mellitus without complications; F41.9 Anxiety disorder, unspecified; E07.9 Disorder of thyroid, unspecified; Z88.5 Allergy status to narcotic agent; Z88.1 Allergy status to other antibiotic agents; Z79.899 Other long term (current) drug therapy; Z82.49 Family history of ischemic heart disease and other diseases of the circulatory system; Z83.3 Family history of diabetes mellitus; Z80.0 Family history of malignant neoplasm of digestive organs; Z90.49 Acquired absence of other specified parts of digestive tract
CPT/HCPCS: J2704; G0121

== ENCOUNTER 2020-12-20 00:47 | Emergency (ER) | payer MEDICARE, BC ==
[2020-12-20] MEDS ORDERED: SODIUM CHLORIDE 0.9% 500 ML 500 ML IV STA (01:01)
--- NOTE | 2020-12-20 01:42 | XR ---
EXAMINATION TYPE: XR chest 2V DATE OF EXAM: 12/20/2020 COMPARISON: 05/26/2018 HISTORY: Short of breath TECHNIQUE: FINDINGS: Heart and mediastinum are normal. Lungs are clear of infiltrate. There are chest leads. The re is cervical spine fusion surgery. Costophrenic angles are clear. IMPRESSION: No active cardiopulmonary disease. There is clearing of the mild linear infiltrate and at electasis in both lungs compared to old exam
[2020-12-20] MEDS ORDERED: SODIUM CHLORIDE 0.9% 1,000 ML IV ONE (01:55)
[2020-12-20] MEDS ORDERED: IPRATROPIUM-ALBUTEROL 3 ML NEB INHALATION STA (01:55)
[2020-12-20] MEDS ORDERED: KETOROLAC 15 MG/ML 1 ML VIAL IVP STA (01:55)
[2020-12-20] MEDS ORDERED: DIAZEPAM 5 MG/ML 2 ML INJ IVP STA (01:56)
[2020-12-20 01:59] LABS: Basophils # (A) 0.1 k/uL (0-0.2); Basophils % (A) 1 %; Eosinophils # (A) 0.4 k/uL (0-0.7); Eosinophils % (A) 6 %; HCT 40.5 % (34.0-46.0); HGB 13.8 gm/dL (11.4-16.0); Lymphocytes # (A) 3.3 k/uL (1.0-4.8); Lymphocytes % (A) 42 %; MCH 29.1 pg (25.0-35.0); MCHC 34.1 g/dL (31.0-37.0); MCV 85.3 fL (80.0-100.0); Mean Platelet Volume 7.2; Monocytes # (A) 0.5 k/uL (0-1.0); Monocytes % (A) 6 %; Neutrophils # (A) 3.3 k/uL (1.3-7.7); Neutrophils % (A) 43 %; Platelet Count 304 k/uL (150-450); RBC 4.75 m/uL (3.80-5.40); RDW 13.9 % (11.5-15.5); WBC 7.8 k/uL (3.8-10.6)
--- NOTE | 2020-12-20 02:04 | ED ---
General Adult HPI - General Chief complaint: Shortness of Breath Stated complaint: Cough congestion Time Seen by Provider: 12/20/20 01:00 Source: patient, RN notes reviewed Mode of arrival: ambulatory Limitations: no limitations - History of Present Illness Initial comments: This a 60-year-old female presents emergency Department chief complaint of cough congestion. Patient states that she has been sick for several days went to her PCP who placed her on Augmentin. Patient states that she started having coughing fits today. Patient states she has no history of asthma or COPD she has recurrent bronchitis. Patient states that she's been coughing so hard she pulled a muscle in her back. She has no complaints of chest pain states her ribs hurt from coughing denies any current fever or chills. Patient denies any lower shortness swelling. Patient denies any other associated complaints. - Related Data Home Medications Medication Instructions Recorded Confirmed Levothyroxine Sodium [Synthroid] 125 mcg PO DAILY 02/13/18 11/08/20 Multivitamins, Thera [Multivitamin 1 tab PO DAILY 05/22/18 11/08/20 (formulary)] Ascorbic Acid [Vitamin C] 500 mg PO DAILY 11/03/20 11/08/20 Cholecalciferol (Vitamin D3) 12.5 mcg PO DAILY 11/03/20 11/08/20 [Vitamin D3 (500 Iu/5 ML)] Multivitamins, Thera [Multivitamin 1 tab PO DAILY 11/03/20 11/08/20 (formulary)] Zinc 50 mg PO DAILY 11/03/20 11/08/20 Previous Rx's Medication Instructions Recorded Albuterol Nebulized [Ventolin 2.5 mg INHALATION Q4H PRN #75 ml 12/20/20 Nebulized] predniSONE 50 mg PO DAILY #5 tab 12/20/20 Allergies Allergy/AdvReac Type Severity Reaction Status Date / Time ciprofloxacin Allergy Rash/Hives Verified 12/20/20 00:52 codeine Allergy Rapid Verified 12/20/20 00:52 Heart Rate hydrocodone bitartrate Allergy Rapid Verified 12/20/20 00:52 [From [place]] Heart Rate meperidine HCl [From Demerol] Allergy Rapid Verified 12/20/20 00:52 Heart Rate propoxyphene napsylate Allergy Rapid Verified 12/20/20 00:52 [From Darvocet-N 100] Heart Rate Review of Systems ROS Statement: Those systems with pertinent positive or pertinent negative responses have been documented in the HPI. ROS Other: All systems not noted in ROS Statement are negative. Past Medical History Past Medical History: Hearing Disorder / Deafness, Thyroid Disorder Additional Past Medical History / Comment(s): Cervical Vertigo, Meniere's Disease, Hypercausis(sound/noise sensitivity) - hard of hearing, hearing aid use, Palpitations, Pre-Diabetic. History of Any Multi-Drug Resistant Organisms: None Reported Past Surgical History: Appendectomy, Hernia Repair, Orthopedic Surgery, Tubal Ligation Additional Past Surgical History / Comment(s): Neck surgery, C3-C8, has a plate in her neck, Novasure. Past Anesthesia/Blood Transfusion Reactions: Previous Problems w/ Anesthesia Additional Past Anesthesia/Blood Transfusion Reaction / Comment(s): Coded while having surgery(This was on HHX from previously, patient was unsure what it meant, didn't remember this but said to leave it on record, was going to look into it). Hard to wake up. Vertigo. Past Psychological History: No Psychological Hx Reported Smoking Status: Never smoker Past Alcohol Use History: Rare Past Drug Use History: None Reported - Past Family History Father Family Medical History: Cancer Additional Family Medical History / Comment(s): Prostate CA, Anxiety. Mother Family Medical History: Cancer, COPD, Diabetes Mellitus Additional Family Medical History / Comment(s): Colon CA, Triple bypass, kidney failure, anxiety, depression, tumor behind her left eye. General Exam Limitations: no limitations General appearance: alert, in no apparent distress Head exam: Present: atraumatic, normocephalic, normal inspection Eye exam: Present: normal appearance, PERRL, EOMI. Absent: scleral icterus, conjunctival injection, periorbital swelling ENT exam: Present: normal exam, normal oropharynx, mucous membranes moist Neck exam: Present: normal inspection, full ROM. Absent: tenderness, meningismus, lymphadenopathy Respiratory exam: Present: wheezes. Absent: normal lung sounds bilaterally, respiratory distress, rales, rhonchi, stridor Cardiovascular Exam: Present: regular rate, normal rhythm, normal heart sounds. Absent: systolic murmur, diastolic murmur, rubs, gallop, clicks GI/Abdominal exam: Present: soft, normal bowel sounds. Absent: distended, tenderness, guarding, rebound, rigid Neurological exam: Present: alert, oriented X3 Skin exam: Present: warm, dry, intact, normal color. Absent: rash Course Vital Signs 12/20/20 12/20/20 00:48 01:39 Temperature 98 F Pulse Rate 79 Respiratory 18 20 Rate Blood Pressure 148/96 O2 Sat by Pulse 99 Oximetry Medical Decision Making - Medical Decision Making Chest x-ray does not show acute abnormality. Down patient does feel greatly improved at this time. Patient is currently antibiotics for upper respiratory infection. Patient did have moderate wheezing improved. Patient agrees this discharged in stable condition, and has no current tobacco pain, chest pain. - Lab Data Result diagrams: 12/20/20 01:32 12/20/20 01:32 Lab Results 12/20/20 12/20/20 12/20/20 Range/Units 01:32 01:32 01:32 WBC 7.8 (3.8-10.6) k/uL RBC 4.75 (3.80-5.40) m/uL Hgb 13.8 (11.4-16.0) gm/dL Hct 40.5 (34.0-46.0) % MCV 85.3 (80.0-100.0) fL MCH 29.1 (25.0-35.0) pg MCHC 34.1 (31.0-37.0) g/dL RDW 13.9 (11.5-15.5) % Plt Count 304 (150-450) k/uL MPV 7.2 Neutrophils % 43 % Lymphocytes % 42 % Monocytes % 6 % Eosinophils % 6 % Basophils % 1 % Neutrophils # 3.3 (1.3-7.7) k/uL Lymphocytes # 3.3 (1.0-4.8) k/uL Monocytes # 0.5 (0-1.0) k/uL Eosinophils # 0.4 (0-0.7) k/uL Basophils # 0.1 (0-0.2) k/uL PT 10.1 (9.0-12.0) sec INR 0.9 (<1.2) APTT 22.8 (22.0-30.0) sec D-Dimer 0.51 (<0.60) mg/L FEU Sodium 137 (137-145) mmol/L Potassium 3.8 (3.5-5.1) mmol/L Chloride 104 (98-107) mmol/L Carbon Dioxide 23 (22-30) mmol/L Anion Gap 10 mmol/L BUN 4 L (7-17) mg/dL Creatinine 0.64 (0.52-1.04) mg/dL Est GFR (CKD-EPI)AfAm >90 (>60 ml/min/1.73 sqM) Est GFR (CKD-EPI)NonAf >90 (>60 ml/min/1.73 sqM) Glucose 130 H (74-99) mg/dL Plasma Lactic Acid Valerio (0.7-2.0) mmol/L Calcium 9.1 (8.4-10.2) mg/dL Magnesium 2.2 (1.6-2.3) mg/dL Total Bilirubin 0.3 (0.2-1.3) mg/dL AST 37 H (14-36) U/L ALT 33 (4-34) U/L Alkaline Phosphatase 70 (38-126) U/L Troponin I (0.000-0.034) ng/mL NT-Pro-B Natriuret Pep pg/mL Total Protein 6.6 (6.3-8.2) g/dL Albumin 3.9 (3.5-5.0) g/dL Lipase 99 (23-300) U/L Coronavirus (PCR) (Not Detectd) 12/20/20 12/20/20 12/20/20 Range/Units 01:32 01:32 01:32 WBC (3.8-10.6) k/uL RBC (3.80-5.40) m/uL Hgb (11.4-16.0) gm/dL Hct (34.0-46.0) % MCV (80.0-100.0) fL MCH (25.0-35.0) pg MCHC (31.0-37.0) g/dL RDW (11.5-15.5) % Plt Count (150-450) k/uL MPV Neutrophils % % Lymphocytes % % Monocytes % % Eosinophils % % Basophils % % Neutrophils # (1.3-7.7) k/uL Lymphocytes # (1.0-4.8) k/uL Monocytes # (0-1.0) k/uL Eosinophils # (0-0.7) k/uL Basophils # (0-0.2) k/uL PT (9.0-12.0) sec INR (<1.2) APTT (22.0-30.0) sec D-Dimer (<0.60) mg/L FEU Sodium (137-145) mmol/L Potassium (3.5-5.1) mmol/L Chloride (98-107) mmol/L Carbon Dioxide (22-30) mmol/L Anion Gap mmol/L BUN (7-17) mg/dL Creatinine (0.52-1.04) mg/dL Est GFR (CKD-EPI)AfAm (>60 ml/min/1.73 sqM) Est GFR (CKD-EPI)NonAf (>60 ml/min/1.73 sqM) Glucose (74-99) mg/dL Plasma Lactic Acid Valerio 1.8 (0.7-2.0) mmol/L Calcium (8.4-10.2) mg/dL Magnesium (1.6-2.3) mg/dL Total Bilirubin (0.2-1.3) mg/dL AST (14-36) U/L ALT (4-34) U/L Alkaline Phosphatase (38-126) U/L Troponin I <0.012 (0.000-0.034) ng/mL NT-Pro-B Natriuret Pep 40 pg/mL Total Protein (6.3-8.2) g/dL Albumin (3.5-5.0) g/dL Lipase (23-300) U/L Coronavirus (PCR) (Not Detectd) 12/20/20 Range/Units 01:32 WBC (3.8-10.6) k/uL RBC (3.80-5.40) m/uL Hgb (11.4-16.0) gm/dL Hct (34.0-46.0) % MCV (80.0-100.0) fL MCH (25.0-35.0) pg MCHC (31.0-37.0) g/dL RDW (11.5-15.5) % Plt Count (150-450) k/uL MPV Neutrophils % % Lymphocytes % % Monocytes % % Eosinophils % % Basophils % % Neutrophils # (1.3-7.7) k/uL Lymphocytes # (1.0-4.8) k/uL Monocytes # (0-1.0) k/uL Eosinophils # (0-0.7) k/uL Basophils # (0-0.2) k/uL PT (9.0-12.0) sec INR (<1.2) APTT (22.0-30.0) sec D-Dimer (<0.60) mg/L FEU Sodium (137-145) mmol/L Potassium (3.5-5.1) mmol/L Chloride (98-107) mmol/L Carbon Dioxide (22-30) mmol/L Anion Gap mmol/L BUN (7-17) mg/dL Creatinine (0.52-1.04) mg/dL Est GFR (CKD-EPI)AfAm (>60 ml/min/1.73 sqM) Est GFR (CKD-EPI)NonAf (>60 ml/min/1.73 sqM) Glucose (74-99) mg/dL Plasma Lactic Acid Valerio (0.7-2.0) mmol/L Calcium (8.4-10.2) mg/dL Magnesium (1.6-2.3) mg/dL Total Bilirubin (0.2-1.3) mg/dL AST (14-36) U/L ALT (4-34) U/L Alkaline Phosphatase (38-126) U/L Troponin I (0.000-0.034) ng/mL NT-Pro-B Natriuret Pep pg/mL Total Protein (6.3-8.2) g/dL Albumin (3.5-5.0) g/dL Lipase (23-300) U/L Coronavirus (PCR) Not Detected (Not Detectd) Disposition Clinical Impression: Bronchospasm, Upper respiratory infection Disposition: HOME SELF-CARE Condition: Stable Instructions (If sedation given, give patient instructions): Acute Bronchitis (ED) Additional Instructions: Please return to the Emergency Department if symptoms worsen or any other concerns. Prescriptions: predniSONE 50 mg PO DAILY #5 tab Albuterol Nebulized [Ventolin Nebulized] 2.5 mg INHALATION Q4H PRN #75 ml PRN Reason: difficulty in breathing Is patient prescribed a controlled substance at d/c from ED?: No Referrals: Shubham Edwards MD [Primary Care Provider] - 1-2 days Time of Disposition: 02:54
[2020-12-20 02:08] LABS: ALT 33 U/L (4-34); AST 37 U/L (14-36); African American GFR (CKD) >90 (>60 ml/min/1.73 sqM); Albumin 3.9 g/dL (3.5-5.0); Alkaline Phosphatase 70 U/L (38-126); Anion Gap 10 mmol/L; Blood Urea Nitrogen 4 mg/dL (7-17); Calcium 9.1 mg/dL (8.4-10.2); Carbon Dioxide 23 mmol/L (22-30); Chloride 104 mmol/L (98-107); Glucose 130 mg/dL (74-99); Lipase 99 U/L (23-300); Magnesium 2.2 mg/dL (1.6-2.3); Non-African American GFR(CKD) >90 (>60 ml/min/1.73 sqM); Potassium 3.8 mmol/L (3.5-5.1); Sodium 137 mmol/L (137-145); Total Bilirubin 0.3 mg/dL (0.2-1.3); Total Protein 6.6 g/dL (6.3-8.2)
[2020-12-20] MEDS ORDERED: ALBUTEROL HFA INHALER INHALATION STA (02:15)
[2020-12-20 02:38] LABS: INR 0.9 (<1.2); Partial Thromboplastin Time 22.8 sec (22.0-30.0); Prothrombin Time 10.1 sec (9.0-12.0)
[2020-12-20] MEDS ORDERED: methylPREDNISolone SOD SUCCI 125 MG/2 ML VIAL IV STA (02:54)
[2020-12-20 03:16] VITALS: BP 131/86; PULSE 68; RESP 18; TEMP 97.4
== END 2020-12-20 03:17 | disposition home or self-care (01) ==
LOC: EC 00:47
DX: J98.01 Acute bronchospasm (principal); J06.9 Acute upper respiratory infection, unspecified; Z20.822 Contact with and (suspected) exposure to COVID-19; Z79.890 Hormone replacement therapy; Z83.3 Family history of diabetes mellitus; Z88.5 Allergy status to narcotic agent; Z90.49 Acquired absence of other specified parts of digestive tract
CPT/HCPCS: 36415; 94640; 93005; 85379; 83880; 80053; 83605; 83690; 83735; 84484; 85025; 85610; 85730; 87635; 71046; 99284; 96374; 96375 ×2; 96361; J2930; J3360; J1885

== ENCOUNTER → 2021-03-30 | Outpatient (CLI) | payer MEDICARE, BC ==
--- NOTE | 2021-03-31 14:26 | MM ---
Reason for exam: screening (asymptomatic). Last mammogram was performed 1 year and 1 month ago. History: Patient is postmenopausal. Family history of breast cancer in maternal aunt. Benign core biopsy of the right breast. Physical Findings: A clinical breast exam by your physician is recommended on an annual basis and results should be correlated with mammographic findings. MG 3D Screening Mammo W/Cad Bilateral CC and MLO view(s) were taken. Prior study comparison: February 16, 2020, bilateral MG 3d screening mammo w/cad. October 21, 2018, bilateral MG 3d screening mammo w/cad. The breast tissue is heterogeneously dense. This may lower the sensitivity of mammography. Stable benign calcifications. There is no discrete abnormality. No significant changes when compared with prior studies. ASSESSMENT: Benign, BI-RAD 2 RECOMMENDATION: Routine screening mammogram of both breasts in 1 year.
== END | disposition home or self-care (01) ==
LOC: RADMAMWWP 09:35
PROVIDERS: ATTEND Obstetrics & Gynecology
DX: Z12.31 Encounter for screening mammogram for malignant neoplasm of breast (principal); Z78.0 Asymptomatic menopausal state; Z80.3 Family history of malignant neoplasm of breast
CPT/HCPCS: 77063; 77067

== ENCOUNTER 2021-06-02 21:01 | Emergency (ER) | payer MEDICARE, BC ==
[2021-06-02 21:12] VITALS: TEMP 97.8
[2021-06-02] MEDS ORDERED: SODIUM CHLORIDE 0.9% 500 ML 500 ML IV STA (21:28)
[2021-06-02] MEDS ORDERED: ONDANSETRON 4 MG/2 ML VIAL IVP STA (21:28)
[2021-06-02] MEDS ORDERED: KETOROLAC 15 MG/ML 1 ML VIAL IVP STA (21:29)
--- NOTE | 2021-06-02 21:34 | ED ---
General Adult HPI - General Chief complaint: Abdominal Pain Stated complaint: Abd Pain Time Seen by Provider: 06/02/21 21:16 Source: patient Mode of arrival: ambulatory Limitations: no limitations - History of Present Illness Initial comments: 61-year-old female, alert and oriented 4, hard of hearing, presents with complaints of sudden onset of lower abdominal pain started tonight. Patient states she tried to have a bowel movement had a small hard stool with bright red blood that filled the toilet. She states this has never happened to her before. She also has complaints of nausea tonight but no vomiting. Denies chest pain or difficulty in breathing. She does have a history of diverticulitis and a surgical history of appendectomy, hernia repair and tubal ligation. -: hour(s) (1) Location: abdomen (lower abdomen) Radiation: non-radiation Severity scale (1-10): 10 Quality: constant Consistency: constant Improves with: none Worsens with: none Associated Symptoms: nausea/vomiting, other (bright red rectal bleeding) Treatments Prior to Arrival: none - Related Data Home Medications Medication Instructions Recorded Confirmed Ascorbic Acid [Vitamin C] 500 mg PO DAILY 11/03/20 06/02/21 Multivitamins, Thera [Multivitamin 1 tab PO DAILY 11/03/20 06/02/21 (formulary)] Zinc 50 mg PO DAILY 11/03/20 06/02/21 Albuterol Nebulized [Ventolin 2.5 mg INHALATION RT-Q4H PRN 06/02/21 06/02/21 Nebulized] Cholecalciferol [Vitamin D3 (25 25 mcg PO DAILY 06/02/21 06/02/21 Mcg = 1000 Iu)] Levothyroxine Sodium [Synthroid] 150 mcg PO DAILY 06/02/21 06/02/21 Allergies Allergy/AdvReac Type Severity Reaction Status Date / Time ciprofloxacin Allergy Rash/Hives Verified 06/02/21 22:25 codeine Allergy Rapid Verified 06/02/21 22:25 Heart Rate hydrocodone bitartrate Allergy Rapid Verified 06/02/21 22:25 [From [place]] Heart Rate meperidine HCl [From Demerol] Allergy Rapid Verified 06/02/21 22:25 Heart Rate propoxyphene napsylate Allergy Rapid Verified 06/02/21 22:25 [From Darvocet-N 100] Heart Rate Review of Systems ROS Statement: Those systems with pertinent positive or pertinent negative responses have been documented in the HPI. ROS Other: All systems not noted in ROS Statement are negative. Past Medical History Past Medical History: Hearing Disorder / Deafness, Thyroid Disorder Additional Past Medical History / Comment(s): Cervical Vertigo, Meniere's Disease, Hypercausis(sound/noise sensitivity) - hard of hearing, hearing aid use , Palpitations, Pre-Diabetic. History of Any Multi-Drug Resistant Organisms: None Reported Past Surgical History: Appendectomy, Hernia Repair, Orthopedic Surgery, Tubal Ligation Additional Past Surgical History / Comment(s): Neck surgery, C3-C8, has a plate in her neck, Novasure. Past Anesthesia/Blood Transfusion Reactions: Previous Problems w/ Anesthesia Additional Past Anesthesia/Blood Transfusion Reaction / Comment(s): Coded while having surgery(This was on HHX from previously, patient was unsure what it meant, didn't remember this but said to leave it on record, was going to look into it). Hard to wake up. Vertigo. Past Psychological History: No Psychological Hx Reported Smoking Status: Never smoker Past Alcohol Use History: Rare Past Drug Use History: None Reported - Past Family History Father Family Medical History: Cancer Additional Family Medical History / Comment(s): Prostate CA, Anxiety. Mother Family Medical History: Cancer, COPD, Diabetes Mellitus Additional Family Medical History / Comment(s): Colon CA, Triple bypass, kidney failure, anxiety, depression, tumor behind her left eye. General Exam Limitations: no limitations General appearance: alert, in no apparent distress Head exam: Present: atraumatic Eye exam: Absent: scleral icterus, conjunctival injection Respiratory exam: Present: normal lung sounds bilaterally. Absent: respiratory distress, wheezes, rales, rhonchi, stridor, chest wall tenderness, accessory muscle use, decreased breath sounds Cardiovascular Exam: Present: regular rate, normal heart sounds. Absent: JVD GI/Abdominal exam: Present: soft, tenderness (diffuse lower abdomen). Absent: distended, guarding, rebound, rigid, mass Rectal exam: Present: normal rectal tone, hemorrhoids, other (Hard stool within the rectal vault). Absent: black stool, fecal impaction, mass Extremities exam: Present: normal inspection, normal capillary refill. Absent: pedal edema Back exam: Present: normal inspection, full ROM. Absent: tenderness, CVA tenderness (R), CVA tenderness (L), vertebral tenderness, rash noted Neurological exam: Present: alert, oriented X3 Psychiatric exam: Present: normal affect, normal mood Skin exam: Present: warm, dry, normal color. Absent: rash, cyanosis, diaphoretic, erythema, petechiae, pallor, mottled Course Vital Signs 06/02/21 06/02/21 06/02/21 21:08 22:11 22:55 Temperature 97.8 F Pulse Rate 94 92 75 Respiratory 16 22 18 Rate Blood Pressure 147/82 124/83 O2 Sat by Pulse 99 97 99 Oximetry 06/02/21 23:34 Temperature Pulse Rate 73 Respiratory 18 Rate Blood Pressure 129/68 O2 Sat by Pulse 95 Oximetry Medical Decision Making - Medical Decision Making 61-year-old female presents with complaints of sudden onset of lower abdominal cramping tonight with rectal bleeding after passing a small hard stool. CT abdomen and pelvis with contrast shows no free air or sign of bowel obstruction, normal liver, spleen, and pancreas. Bile ducts are not dilated. There are no adrenal masses. No hydronephrosis. No pelvic masses. There is no evidence of diverticulitis. She does have a history of appendectomy. There is no significant leukocytosis and electrolytes are unremarkable. Hemoglobin and hematocrit are stable. Digital rectal exam reveals good tone with no gross blood. There is hard stool in the rectal vault, likely constipation. Patient was given magnesium citrate. She was directed to return to the emergency room with a new or concerning symptoms, up with her primary care doctor next week. Patient and family member agreeable to this plan of care. Case discussed with Dr. Williamson. - Lab Data Result diagrams: 06/02/21 21:35 06/02/21 21:35 Lab Results 06/02/21 06/02/21 06/02/21 Range/Units 21:35 21:35 21:35 WBC 11.6 H (3.8-10.6) k/uL RBC 4.90 (3.80-5.40) m/uL Hgb 14.1 (11.4-16.0) gm/dL Hct 43.0 (34.0-46.0) % MCV 87.8 (80.0-100.0) fL MCH 28.7 (25.0-35.0) pg MCHC 32.7 (31.0-37.0) g/dL RDW 13.2 (11.5-15.5) % Plt Count 385 (150-450) k/uL MPV 7.6 Neutrophils % 59 % Lymphocytes % 31 % Monocytes % 6 % Eosinophils % 2 % Basophils % 1 % Neutrophils # 6.9 (1.3-7.7) k/uL Lymphocytes # 3.6 (1.0-4.8) k/uL Monocytes # 0.7 (0-1.0) k/uL Eosinophils # 0.3 (0-0.7) k/uL Basophils # 0.1 (0-0.2) k/uL PT 10.5 (9.0-12.0) sec INR 1.0 (<1.2) APTT 23.2 (22.0-30.0) sec Sodium 139 (137-145) mmol/L Potassium 4.3 (3.5-5.1) mmol/L Chloride 104 (98-107) mmol/L Carbon Dioxide 27 (22-30) mmol/L Anion Gap 8 mmol/L BUN 14 (7-17) mg/dL Creatinine 1.01 (0.52-1.04) mg/dL Est GFR (CKD-EPI)AfAm 70 (>60 ml/min/1.73 sqM) Est GFR (CKD-EPI)NonAf 61 (>60 ml/min/1.73 sqM) Glucose 114 H (74-99) mg/dL Plasma Lactic Acid Valerio (0.7-2.0) mmol/L Calcium 9.7 (8.4-10.2) mg/dL Total Bilirubin 0.5 (0.2-1.3) mg/dL AST 29 (14-36) U/L ALT 27 (4-34) U/L Alkaline Phosphatase 77 (38-126) U/L Total Protein 7.3 (6.3-8.2) g/dL Albumin 4.3 (3.5-5.0) g/dL Amylase 69 (30-110) U/L Lipase 127 (23-300) U/L Urine Color Urine Appearance (Clear) Urine pH (5.0-8.0) Ur Specific [place] (1.001-1.035) Urine Protein (Negative) Urine Glucose (UA) (Negative) Urine Ketones (Negative) Urine Blood (Negative) Urine Nitrite (Negative) Urine Bilirubin (Negative) Urine Urobilinogen (<2.0) mg/dL Ur Leukocyte Esterase (Negative) Urine RBC (0-5) /hpf Urine WBC (0-5) /hpf Ur Squamous Epith Cells (0-4) /hpf Urine Mucus (None) /hpf Stool Occult Blood (Negative) 06/02/21 06/02/21 06/02/21 Range/Units 21:35 21:49 23:33 WBC (3.8-10.6) k/uL RBC (3.80-5.40) m/uL Hgb (11.4-16.0) gm/dL Hct (34.0-46.0) % MCV (80.0-100.0) fL MCH (25.0-35.0) pg MCHC (31.0-37.0) g/dL RDW (11.5-15.5) % Plt Count (150-450) k/uL MPV Neutrophils % % Lymphocytes % % Monocytes % % Eosinophils % % Basophils % % Neutrophils # (1.3-7.7) k/uL Lymphocytes # (1.0-4.8) k/uL Monocytes # (0-1.0) k/uL Eosinophils # (0-0.7) k/uL Basophils # (0-0.2) k/uL PT (9.0-12.0) sec INR (<1.2) APTT (22.0-30.0) sec Sodium (137-145) mmol/L Potassium (3.5-5.1) mmol/L Chloride (98-107) mmol/L Carbon Dioxide (22-30) mmol/L Anion Gap mmol/L BUN (7-17) mg/dL Creatinine (0.52-1.04) mg/dL Est GFR (CKD-EPI)AfAm (>60 ml/min/1.73 sqM) Est GFR (CKD-EPI)NonAf (>60 ml/min/1.73 sqM) Glucose (74-99) mg/dL Plasma Lactic Acid Valerio 1.5 (0.7-2.0) mmol/L Calcium (8.4-10.2) mg/dL Total Bilirubin (0.2-1.3) mg/dL AST (14-36) U/L ALT (4-34) U/L Alkaline Phosphatase (38-126) U/L Total Protein (6.3-8.2) g/dL Albumin (3.5-5.0) g/dL Amylase (30-110) U/L Lipase (23-300) U/L Urine Color Yellow Urine Appearance Clear (Clear) Urine pH 6.0 (5.0-8.0) Ur Specific [place] 1.016 (1.001-1.035) Urine Protein Negative (Negative) Urine Glucose (UA) Negative (Negative) Urine Ketones Negative (Negative) Urine Blood Moderate H (Negative) Urine Nitrite Negative (Negative) Urine Bilirubin Negative (Negative) Urine Urobilinogen <2.0 (<2.0) mg/dL Ur Leukocyte Esterase Moderate H (Negative) Urine RBC 1 (0-5) /hpf Urine WBC 5 (0-5) /hpf Ur Squamous Epith Cells 1 (0-4) /hpf Urine Mucus Rare H (None) /hpf Stool Occult Blood Positive H (Negative) Disposition Clinical Impression: Constipation, Rectal bleeding Disposition: HOME SELF-CARE Condition: Good Instructions (If sedation given, give patient instructions): Constipation (ED), High Fiber Diet (ED) Additional Instructions: Increase your fluid intake. Drink half a bottle of magnesium citrate followed by 2 glasses of water. Return to the emergency room with any new or concerning symptoms including vomiting, increased abdominal pain, fevers or inability to pass stool. Follow-up with your primary care doctor next week. Is patient prescribed a controlled substance at d/c from ED?: No Referrals: Shubham Edwards MD [Primary Care Provider] - 1-2 days Time of Disposition: 23:47
[2021-06-02 22:05] LABS: Basophils # (A) 0.1 k/uL (0-0.2); Basophils % (A) 1 %; Eosinophils # (A) 0.3 k/uL (0-0.7); Eosinophils % (A) 2 %; HGB 14.1 gm/dL (11.4-16.0); Lymphocytes # (A) 3.6 k/uL (1.0-4.8); Lymphocytes % (A) 31 %; MCH 28.7 pg (25.0-35.0); MCHC 32.7 g/dL (31.0-37.0); MCV 87.8 fL (80.0-100.0); Mean Platelet Volume 7.6; Monocytes # (A) 0.7 k/uL (0-1.0); Monocytes % (A) 6 %; Neutrophils # (A) 6.9 k/uL (1.3-7.7); Neutrophils % (A) 59 %; Platelet Count 385 k/uL (150-450); RDW 13.2 % (11.5-15.5); WBC 11.6 k/uL (3.8-10.6)
[2021-06-02 22:08] LABS: Appearance,Urine Clear (Clear); Bilirubin,Urine Negative (Negative); Blood,Urine Moderate (Negative); Color,Urine Yellow; Glucose,Urine (UA) Negative (Negative); Ketones,Urine Negative (Negative); Leukocyte Esterase,Urine Moderate (Negative); Mucus,Urine Rare /hpf; Nitrite,Urine Negative (Negative); Protein,Urine Negative (Negative); RBC,Urine 1 /hpf (0-5); Specific Gravity,Urine 1.016 (1.001-1.035); Squamous Epithelial Cell,Urine 1 /hpf (0-4); Urobilinogen,Urine <2.0 mg/dL (<2.0); WBC,Urine 5 /hpf (0-5)
[2021-06-02 22:16] LABS: Partial Thromboplastin Time 23.2 sec (22.0-30.0); Prothrombin Time 10.5 sec (9.0-12.0)
[2021-06-02 22:25] LABS: Albumin 4.3 g/dL (3.5-5.0); Calcium 9.7 mg/dL (8.4-10.2); Potassium 4.3 mmol/L (3.5-5.1); Total Bilirubin 0.5 mg/dL (0.2-1.3); Total Protein 7.3 g/dL (6.3-8.2)
[2021-06-02 22:57] VITALS: RESP 18
--- NOTE | 2021-06-02 23:15 | CT ---
EXAMINATION TYPE: CT abdomen pelvis w con DATE OF EXAM: 06/02/2021 COMPARISON: 08/23/2016 HISTORY: abdominal pain, w/ some bright red blood in stool CT DLP: 1161.9 mGycm Automated exposure control for dose reduction was used. CONTRAST: Performed with IV Contrast, patient injected with 100 mL of Isovue 300. Images obtained from the diaphragm to the floor of the pelvis with IV contrast. The lung bases show some groundglass mild interstitial infiltrates. Heart size is normal. No pericard ial effusion. Liver spleen stomach pancreas appear intact. Bile ducts are not dilated. There is no adrenal mass. Kidneys show satisfactory contrast opacification. There is no hydronephrosi s. Ureters are not dilated. Delayed images show normal renal excretion. There is no retroperitoneal a denopathy. The bladder distends smoothly. There is no inguinal hernia. The uterus is anteverted. No free fluid in the pelvis. No pelvic mass. The lumbar vertebrae have norm al alignment. There is vacuum disc at L4-5. There is no lumbar compression fracture. Bony pelvis is i ntact. The hip joints are intact. Sacroiliac joints appear normal. There is no mesenteric edema. No ascites or free air. No sign of a bowel obstruction. Appendix not cl early seen. No significant appendix. IMPRESSION: Negative CT scan abdomen and pelvis. There is progression of degenerative disc changes at L4-5 compar ed to old exam.
[2021-06-02 23:34] VITALS: BP 129/68; PULSE 73
[2021-06-02] MEDS ORDERED: MAGNESIUM CITRATE 296 ML BOTTLE PO ONE (23:46)
== END 2021-06-03 | disposition home or self-care (01) ==
LOC: EC 21:01
DX: K59.00 Constipation, unspecified (principal); K62.5 Hemorrhage of anus and rectum; E07.9 Disorder of thyroid, unspecified; Z88.1 Allergy status to other antibiotic agents; Z88.5 Allergy status to narcotic agent; Z90.49 Acquired absence of other specified parts of digestive tract; Z98.51 Tubal ligation status
CPT/HCPCS: 99284; 96374; 96375; 36415; 80053; 82150; 83605; 83690; 85025; 85610; 85730; 82272; 81001; 74177; J2405; J1885; Q9967

== ENCOUNTER 2021-07-10 03:08 | Emergency (ER) | payer MEDICARE, BC ==
--- NOTE | 2021-07-10 06:27 | XR ---
EXAMINATION TYPE: XR chest 1V DATE OF EXAM: 07/10/2021 COMPARISON: Chest x-ray December 20, 2020 HISTORY: Shortness of breath. TECHNIQUE: Single AP portable frontal upright view of the chest is obtained. FINDINGS: There is no suspicious new focal air space opacity, pleural effusion, or pneumothorax seen . The cardiac silhouette size is stable and upper limits of normal. Surgical change of the cervical spine is redemonstrated. IMPRESSION: No acute pulmonary process.
[2021-07-10 06:37] LABS: Creatine Kinase 57 U/L (30-135); Creatine Kinase MB 0.9 ng/mL (0.0-2.4); Troponin I <0.012 ng/mL (0.000-0.034)
[2021-07-10 06:38] LABS: Basophils # (A) 0.1 k/uL (0-0.2); Basophils % (A) 1 %; Eosinophils # (A) 0.3 k/uL (0-0.7); Eosinophils % (A) 3 %; HCT 44.1 % (34.0-46.0); HGB 14.1 gm/dL (11.4-16.0); Lymphocytes % (A) 29 %; MCH 28.4 pg (25.0-35.0); MCV 88.7 fL (80.0-100.0); Monocytes # (A) 0.7 k/uL (0-1.0); Monocytes % (A) 7 %; Neutrophils # (A) 6.1 k/uL (1.3-7.7); Neutrophils % (A) 59 %; Platelet Count 350 k/uL (150-450); RBC 4.97 m/uL (3.80-5.40); RDW 13.4 % (11.5-15.5); WBC 10.3 k/uL (3.8-10.6)
[2021-07-10 06:44] LABS: Albumin 4.4 g/dL (3.5-5.0); Calcium 9.4 mg/dL (8.4-10.2); Magnesium 2.2 mg/dL (1.6-2.3); Phosphorus 3.2 mg/dL (2.5-4.5); Potassium 3.7 mmol/L (3.5-5.1); T4, Free (Free Thyroxine) 1.08 ng/dL (0.78-2.19); Total Bilirubin 0.3 mg/dL (0.2-1.3)
[2021-07-10] MEDS ORDERED: IPRATROPIUM-ALBUTEROL 3 ML NEB ONE (08:00)
== END 2021-07-10 06:45 ==
LOC: EC 03:08
DX: R09.82 Postnasal drip (principal); R05.9 Cough, unspecified; R06.02 Shortness of breath; Z88.5 Allergy status to narcotic agent; Z88.6 Allergy status to analgesic agent; Z88.1 Allergy status to other antibiotic agents; Z88.8 Allergy status to other drugs, medicaments and biological substances; Z20.822 Contact with and (suspected) exposure to COVID-19
CPT/HCPCS: 36415; 71045; 80053; 82550; 82553; 83735; 83880; 84100; 84439; 84443; 84484; 85025; 87635; 99285

== ENCOUNTER 2021-12-07 06:45 | Emergency (ER) | payer BC, MEDICARE ==
[2021-12-07 06:51] VITALS: TEMP 98.1
[2021-12-07] MEDS ORDERED: SODIUM CHLORIDE 0.9% 1,000 ML IV ONE (07:11)
[2021-12-07] MEDS ORDERED: KETOROLAC 15 MG/ML 1 ML VIAL IVP STA (07:11)
[2021-12-07] MEDS ORDERED: SODIUM CHLORIDE 0.9% 500 ML 500 ML IV ONE (07:11)
--- NOTE | 2021-12-07 07:16 | ED ---
General Adult HPI - General Chief complaint: Allergic Reaction Stated complaint: sore throat, bodyaches Time Seen by Provider: 12/07/21 06:51 Source: patient, RN notes reviewed Mode of arrival: ambulatory Limitations: no limitations - History of Present Illness Initial comments: 61-year-old female presents emergency Department chief complaint of sore throat, swollen lymph nodes, does not feel well, body aches, skin tenderness. Patient states she was seen at urgent care twice on Augmentin, prednisone. Patient states started feeling better but has greatly worsened last day or so. She states that she feels her throat is swollen, her body hurts and states her skin is very sensitive. Patient states that she has not missed any doses of her medication. She did state and results of her blood sugar. Patient denies any vomiting but said some nausea. Denies any difficulty swallowing no cough or shortness breath at this time denies any chest pain. - Related Data Home Medications Medication Instructions Recorded Confirmed Levothyroxine Sodium [Synthroid] 150 mcg PO DAILY 06/02/21 12/07/21 Amoxic-Pot Clav 875-125Mg 1 tab PO Q12HR 12/07/21 12/07/21 [Augmentin 875-125] predniSONE 50 mg PO DAILY 12/07/21 12/07/21 Allergies Allergy/AdvReac Type Severity Reaction Status Date / Time ciprofloxacin Allergy Rash/Hives Verified 12/07/21 10:10 codeine AdvReac Rapid Verified 12/07/21 10:10 Heart Rate hydrocodone bitartrate AdvReac Rapid Verified 12/07/21 10:10 [From [place]] Heart Rate meperidine HCl [From Demerol] AdvReac Rapid Verified 12/07/21 10:10 Heart Rate propoxyphene napsylate AdvReac Rapid Verified 12/07/21 10:10 [From Darvocet-N 100] Heart Rate Review of Systems ROS Statement: Those systems with pertinent positive or pertinent negative responses have been documented in the HPI. ROS Other: All systems not noted in ROS Statement are negative. Past Medical History Past Medical History: Hearing Disorder / Deafness, Thyroid Disorder Additional Past Medical History / Comment(s): Cervical Vertigo, Meniere's Disease, Hypercausis(sound/noise sensitivity) - hard of hearing, hearing aid use, Palpitations, Pre-Diabetic. History of Any Multi-Drug Resistant Organisms: None Reported Past Surgical History: Appendectomy, Hernia Repair, Orthopedic Surgery, Tubal Ligation Additional Past Surgical History / Comment(s): Neck surgery, C3-C8, has a plate in her neck, Novasure. Past Anesthesia/Blood Transfusion Reactions: Previous Problems w/ Anesthesia Additional Past Anesthesia/Blood Transfusion Reaction / Comment(s): Coded while having surgery(This was on HHX from previously, patient was unsure what it meant, didn't remember this but said to leave it on record, was going to look into it). Hard to wake up. Vertigo. Past Psychological History: No Psychological Hx Reported Smoking Status: Never smoker Past Alcohol Use History: Rare Past Drug Use History: None Reported - Past Family History Father Family Medical History: Cancer Additional Family Medical History / Comment(s): Prostate CA, Anxiety. Mother Family Medical History: Cancer, COPD, Diabetes Mellitus Additional Family Medical History / Comment(s): Colon CA, Triple bypass, kidney failure, anxiety, depression, tumor behind her left eye. General Exam General appearance: alert, in no apparent distress Head exam: Present: atraumatic, normocephalic, normal inspection Eye exam: Present: normal appearance, PERRL, EOMI. Absent: scleral icterus, conjunctival injection, periorbital swelling ENT exam: Present: normal exam, normal oropharynx, mucous membranes moist, TM's normal bilaterally Neck exam: Present: normal inspection, tenderness, full ROM, lymphadenopathy. Absent: meningismus Respiratory exam: Present: normal lung sounds bilaterally. Absent: respiratory distress, wheezes, rales, rhonchi, stridor Cardiovascular Exam: Present: regular rate, normal rhythm, normal heart sounds. Absent: systolic murmur, diastolic murmur, rubs, gallop, clicks Course Vital Signs 12/07/21 12/07/21 06:47 09:36 Temperature 98.1 F Pulse Rate 71 Respiratory 18 17 Rate Blood Pressure 156/83 O2 Sat by Pulse 98 Oximetry Medical Decision Making - Medical Decision Making Patient's labs are unremarkable, negative covid, Negative flu and heterophile. Patient feels improved after IV fluids will be discharged in stable condition she denies any difficulty swallowing breathing no chest pain. - Lab Data Result diagrams: 12/07/21 07:44 12/07/21 07:44 Lab Results 10/12/07/21 12/07/21 Range/Units 07:44 07:44 07:44 WBC 9.5 (3.8-10.6) k/uL RBC 4.87 (3.80-5.40) m/uL Hgb 14.0 (11.4-16.0) gm/dL Hct 42.5 (34.0-46.0) % MCV 87.3 (80.0-100.0) fL MCH 28.9 (25.0-35.0) pg MCHC 33.1 (31.0-37.0) g/dL RDW 13.3 (11.5-15.5) % Plt Count 338 (150-450) k/uL MPV 8.5 Neutrophils % 49 % Lymphocytes % 39 % Monocytes % 8 % Eosinophils % 2 % Basophils % 1 % Neutrophils # 4.7 (1.3-7.7) k/uL Lymphocytes # 3.7 (1.0-4.8) k/uL Monocytes # 0.8 (0-1.0) k/uL Eosinophils # 0.2 (0-0.7) k/uL Basophils # 0.1 (0-0.2) k/uL Sodium (137-145) mmol/L Potassium (3.5-5.1) mmol/L Chloride (98-107) mmol/L Carbon Dioxide (22-30) mmol/L Anion Gap mmol/L BUN (7-17) mg/dL Creatinine (0.52-1.04) mg/dL Est GFR (CKD-EPI)AfAm (>60 ml/min/1.73 sqM) Est GFR (CKD-EPI)NonAf (>60 ml/min/1.73 sqM) Glucose (74-99) mg/dL Calcium (8.4-10.2) mg/dL Magnesium (1.6-2.3) mg/dL Total Bilirubin (0.2-1.3) mg/dL AST (14-36) U/L ALT (4-34) U/L Alkaline Phosphatase (38-126) U/L Total Protein (6.3-8.2) g/dL Albumin (3.5-5.0) g/dL Urine Color Colorless Urine Appearance Clear (Clear) Urine pH 6.5 (5.0-8.0) Ur Specific [place] 1.003 (1.001-1.035) Urine Protein Negative (Negative) Urine Glucose (UA) Negative (Negative) Urine Ketones Negative (Negative) Urine Blood Negative (Negative) Urine Nitrite Negative (Negative) Urine Bilirubin Negative (Negative) Urine Urobilinogen <2.0 (<2.0) mg/dL Ur Leukocyte Esterase Small H (Negative) Urine RBC <1 (0-5) /hpf Urine WBC 4 (0-5) /hpf Ur Squamous Epith Cells <1 (0-4) /hpf Urine Bacteria Rare H (None) /hpf Coronavirus (PCR) (Not Detectd) Heterophile Antibody Negative (Negative) Influenza Type A RNA (Not Detectd) Influenza Type B (PCR) (Not Detectd) 12/07/21 12/07/21 12/07/21 Range/Units 07:44 07:44 07:44 WBC (3.8-10.6) k/uL RBC (3.80-5.40) m/uL Hgb (11.4-16.0) gm/dL Hct (34.0-46.0) % MCV (80.0-100.0) fL MCH (25.0-35.0) pg MCHC (31.0-37.0) g/dL RDW (11.5-15.5) % Plt Count (150-450) k/uL MPV Neutrophils % % Lymphocytes % % Monocytes % % Eosinophils % % Basophils % % Neutrophils # (1.3-7.7) k/uL Lymphocytes # (1.0-4.8) k/uL Monocytes # (0-1.0) k/uL Eosinophils # (0-0.7) k/uL Basophils # (0-0.2) k/uL Sodium 140 (137-145) mmol/L Potassium 4.6 (3.5-5.1) mmol/L Chloride 105 (98-107) mmol/L Carbon Dioxide 25 (22-30) mmol/L Anion Gap 10 mmol/L BUN 10 (7-17) mg/dL Creatinine 0.71 (0.52-1.04) mg/dL Est GFR (CKD-EPI)AfAm >90 (>60 ml/min/1.73 sqM) Est GFR (CKD-EPI)NonAf >90 (>60 ml/min/1.73 sqM) Glucose 85 (74-99) mg/dL Calcium 8.9 (8.4-10.2) mg/dL Magnesium 2.2 (1.6-2.3) mg/dL Total Bilirubin 0.6 (0.2-1.3) mg/dL AST 27 (14-36) U/L ALT 26 (4-34) U/L Alkaline Phosphatase 66 (38-126) U/L Total Protein 6.6 (6.3-8.2) g/dL Albumin 4.2 (3.5-5.0) g/dL Urine Color Urine Appearance (Clear) Urine pH (5.0-8.0) Ur Specific [place] (1.001-1.035) Urine Protein (Negative) Urine Glucose (UA) (Negative) Urine Ketones (Negative) Urine Blood (Negative) Urine Nitrite (Negative) Urine Bilirubin (Negative) Urine Urobilinogen (<2.0) mg/dL Ur Leukocyte Esterase (Negative) Urine RBC (0-5) /hpf Urine WBC (0-5) /hpf Ur Squamous Epith Cells (0-4) /hpf Urine Bacteria (None) /hpf Coronavirus (PCR) Not Detected (Not Detectd) Heterophile Antibody (Negative) Influenza Type A RNA Not Detected (Not Detectd) Influenza Type B (PCR) Not Detected (Not Detectd) Disposition Clinical Impression: URI (upper respiratory infection), Medication reaction Disposition: HOME SELF-CARE Condition: Stable Instructions (If sedation given, give patient instructions): Upper Respiratory Infection (ED) Additional Instructions: Please return to the Emergency Department if symptoms worsen or any other concerns. Is patient prescribed a controlled substance at d/c from ED?: No Referrals: Shubham Edwards MD [Primary Care Provider] - 1-2 days Time of Disposition: 10:27
[2021-12-07] MEDS ORDERED: ONDANSETRON 4 MG/2 ML VIAL IVP STA (08:02)
[2021-12-07 08:17] LABS: Appearance,Urine Clear (Clear); Bacteria,Urine Rare /hpf; Bilirubin,Urine Negative (Negative); Blood,Urine Negative (Negative); Color,Urine Colorless; Glucose,Urine (UA) Negative (Negative); Ketones,Urine Negative (Negative); Leukocyte Esterase,Urine Small (Negative); Nitrite,Urine Negative (Negative); PH, Urine 6.5 (5.0-8.0); Protein,Urine Negative (Negative); RBC,Urine <1 /hpf (0-5); Specific Gravity,Urine 1.003 (1.001-1.035); Squamous Epithelial Cell,Urine <1 /hpf (0-4); Urobilinogen,Urine <2.0 mg/dL (<2.0); WBC,Urine 4 /hpf (0-5)
[2021-12-07 08:50] LABS: ALT 26 U/L (4-34); African American GFR (CKD) >90 (>60 ml/min/1.73 sqM); Albumin 4.2 g/dL (3.5-5.0); Anion Gap 10 mmol/L; Blood Urea Nitrogen 10 mg/dL (7-17); Calcium 8.9 mg/dL (8.4-10.2); Carbon Dioxide 25 mmol/L (22-30); Chloride 105 mmol/L (98-107); Glucose 85 mg/dL (74-99); Non-African American GFR(CKD) >90 (>60 ml/min/1.73 sqM); Sodium 140 mmol/L (137-145); Total Bilirubin 0.6 mg/dL (0.2-1.3); Total Protein 6.6 g/dL (6.3-8.2)
[2021-12-07 08:55] LABS: AST 27 U/L (14-36); Alkaline Phosphatase 66 U/L (38-126); Magnesium 2.2 mg/dL (1.6-2.3); Potassium 4.6 mmol/L (3.5-5.1)
[2021-12-07 09:00] LABS: Basophils # (A) 0.1 k/uL (0-0.2); Basophils % (A) 1 %; Eosinophils # (A) 0.2 k/uL (0-0.7); Eosinophils % (A) 2 %; HCT 42.5 % (34.0-46.0); Lymphocytes # (A) 3.7 k/uL (1.0-4.8); Lymphocytes % (A) 39 %; MCH 28.9 pg (25.0-35.0); MCHC 33.1 g/dL (31.0-37.0); MCV 87.3 fL (80.0-100.0); Mean Platelet Volume 8.5; Monocytes # (A) 0.8 k/uL (0-1.0); Monocytes % (A) 8 %; Neutrophils # (A) 4.7 k/uL (1.3-7.7); Neutrophils % (A) 49 %; Platelet Count 338 k/uL (150-450); RBC 4.87 m/uL (3.80-5.40); RDW 13.3 % (11.5-15.5); WBC 9.5 k/uL (3.8-10.6)
[2021-12-07 10:38] VITALS: BP 123/67; PULSE 81; RESP 15
== END 2021-12-07 10:38 | disposition home or self-care (01) ==
LOC: EC 06:45
DX: J06.9 Acute upper respiratory infection, unspecified (principal); E07.9 Disorder of thyroid, unspecified; Z20.822 Contact with and (suspected) exposure to COVID-19; Z88.5 Allergy status to narcotic agent; Z88.1 Allergy status to other antibiotic agents; Z79.890 Hormone replacement therapy
CPT/HCPCS: 96374; 96375; 96361; 36415; 80053; 83735; 85025; 86308; 81001; 87502; 87635; 99283; J2405; J1885

== ENCOUNTER → 2022-06-25 | Outpatient (CLI) | payer MEDICARE, BC ==
--- NOTE | 2022-06-26 15:32 | MM ---
Reason for Exam: Screening (asymptomatic). Last mammogram was performed 1 year(s) and 3 month(s) ago. Patient History: Menarche at age 14. First Full-Term at age 26. Postmenopausal. Benign Core Biopsy on the right side. Maternal aunt had breast cancer. Risk Values: Aletha 5 year model risk: 1.9%. NCI Lifetime model risk: 9.3%. Prior Study Comparison: 10/21/2018 Bilateral Screening Mammogram, LOC[facility]IN [facility]. 02/16/2020 Bilateral Screening Mammogram, [facility]. 03/30/2021 Bilateral Screening Mammogram, [facility]. Tissue Density: There are scattered fibroglandular densities. Findings: Analyzed By CAD. Pattern appears stable. There is chronic nodularity within the outer upper right breast. There is a 0.5 cm nodular density in the outer left breast 8 cm from the nipple. This is an interval change from prior study. This is likely at the 4 to 5:00 position. Additional evaluation with ultrasound is recommended. Overall Assessment: Incomplete: need additional imaging evaluation, BI-RAD 0 Management: Diagnostic Breast Ultrasound of the left breast. A negative mammogram report should not preclude additional follow up of suspicious palpable abnormalities. Patient should continue monthly self breast exam. A clinical breast exam by your physician is recommended on an annual basis and results should be correlated with mammographic findings. Electronically signed and approved by: Hermes Jacob D.O. Radiologis
== END | disposition home or self-care (01) ==
LOC: RADMAMWWP 14:55
PROVIDERS: ATTEND Obstetrics & Gynecology
DX: Z12.31 Encounter for screening mammogram for malignant neoplasm of breast (principal); Z78.0 Asymptomatic menopausal state; Z80.3 Family history of malignant neoplasm of breast
CPT/HCPCS: 77063; 77067

== ENCOUNTER → 2022-07-05 | Outpatient (CLI) | payer BC, MEDICARE ==
--- NOTE | 2022-07-05 09:06 | USB ---
Reason for Exam: Additional evaluation requested from abnormal screening. Patient History: Menarche at age 14. First Full-Term at age 26. Postmenopausal. Benign Core Biopsy on the right side. Maternal aunt had breast cancer. Risk Values: Aletha 5 year model risk: 1.9%. NCI Lifetime model risk: 9.3%. Technique: Method: Targeted. Prior Study Comparison: 02/16/2020 Bilateral Screening Mammogram, [facility]. 03/30/2021 Bilateral Screening Mammogram, [facility]. 06/25/2022 Bilateral MG 3D screening mammo w/cad, [facility]. Findings: The lateral section of the breast of the left breast, the axilla of the left breast and the retroareolar of the left breast were scanned. Targeted ultrasound left breast 3:00 to 5:00 including the subareolar region and axilla. At the 4:00 position, 8 cm from the nipple, there is a 4 x 4 by 4 mm circumscribed lesion. Initially, prior to using harmonics, there is a somewhat suspicious hypoechoic and possibly shadowing appearance. However, after utilizing harmonics, there is a more cystic appearance with well-defined posterior wall. Given the patient's personal history of breast cancer, precautionary 3 month short interval follow-up is recommended. No other solid or cystic lesion. Overall Assessment: Probably benign, BI-RAD 3 Management: Diagnostic Mammogram of the left breast in 3 months. Diagnostic Breast Ultrasound of the left breast in 3 months. A clinical breast exam by your physician is recommended on an annual basis and results should be correlated with mammographic findings. This exam should not preclude additional follow-up of suspicious palpable abnormalities. Results were given to the patient verbally at the time of exam. Electronically signed and approved by: Zaynab Olivier M.D. Radiologist
== END | disposition home or self-care (01) ==
LOC: RADUSWWP 07:56
PROVIDERS: ATTEND Obstetrics & Gynecology
DX: R92.8 Other abnormal and inconclusive findings on diagnostic imaging of breast (principal); Z78.0 Asymptomatic menopausal state; Z80.3 Family history of malignant neoplasm of breast

== ENCOUNTER → 2022-08-20 | Outpatient (CLI) | payer BC, MEDICARE ==
--- NOTE | 2022-08-22 07:14 | BD ---
EXAMINATION TYPE: Axial Bone Density DATE OF EXAM: 08/20/2022 CLINICAL HISTORY: 62 years old Female. ICD-10 CODE: N95.1 ALLI AND FEMALE CLIMACTERIC STATES Height: 62 in Weight: 186 lbs RISK FACTORS HISTORY OF: Family History of Osteoporosis: yes Active: yes Postmenopausal woman: age 52 MEDICATIONS: Thyroid Medications: yes Which medication: Synthroid How Lon+ years Additional Medications: none EXAM MEASUREMENTS: Bone mineral densitometry was performed using the [employer] System. Bone mineral density as measured about the Lumbar spine is: ----- L1-L4(G/cm2): 1.252 T Score Values are as follows: ----- L1: -0.5 ----- L2: 0.7 ----- L3: 0.4 ----- L4: 1.5 ----- L1-L4: 0.6 Z Score Values are as follows: ----- L1: 0.1 ----- L2: 1.3 ----- L3: 1.1 ----- L4: 2.2 ----- L1-L4: 1.3 Bone mineral density has: Increased 3.6% since study of: 11/19/2017 Bone mineral density about the R hip (g/cm2): 1.002 Bone mineral density about the L hip (g/cm2): 0.956 T Score values are as follows: -----R Neck: -0.7 -----L Neck: -1.4 -----R Total: 0.0 -----L Total: -0.4 Z Score values are as follows: -----R Neck: 0.1 -----L Neck: -0.5 -----R Total: 0.5 -----L Total: 0.1 Bone mineral density has: Decreased -5.2% since study of: 11/19/2017 FRAX%s: The graph provided illustrates a 7.6% chance for a major osteoporotic fx and a 0.6% chance fo r the hips probability for fx in 10 years time. IMPRESSION: Normal (Values between +1 and -1 indicate normal bone mass). Consider repeating this study in 5 year s or sooner if there is some new clinical indication. NOTE: T-SCORE=SD OF THE YOUNG ADULT MEAN.
== END | disposition home or self-care (01) ==
LOC: RADBDWWP 06:41
PROVIDERS: ATTEND Obstetrics & Gynecology
DX: Z78.0 Asymptomatic menopausal state (principal)
CPT/HCPCS: 77080

== ENCOUNTER → 2022-08-23 | Outpatient (CLI) | payer BC, MEDICARE | END | disposition home or self-care (01) | LOC: LABWHC1 09:13 | PROVIDERS: ATTEND Nurse Practitioner Adult Health | DX: E11.9 Type 2 diabetes mellitus without complications (principal); E78.5 Hyperlipidemia, unspecified; R00.2 Palpitations | CPT/HCPCS: 36415; 83036; 83735 ==

== ENCOUNTER → 2022-08-23 | Outpatient (CLI) | payer BC, MEDICARE ==
[2022-08-23 16:39] LABS: ALT 26 U/L (8-44); AST 20 U/L (13-35); Albumin 4.5 d/dL (3.8-4.9); Albumin/Globulin Ratio 1.88 Ratio (1.60-3.17); Alkaline Phosphatase 77 U/L (41-126); BUN/Creat Ratio 11.22 Ratio (12.00-20.00); Blood Urea Nitrogen 10.1 mg/dL (9.0-27.0); Calcium 10.3 mg/dL (8.7-10.3); Carbon Dioxide 25.1 mmol/L (21.6-31.8); Chloride 107 mmol/L (96-109); Chol/HDL Ratio 4.09 Ratio; Globulin 2.4 d/dL (1.6-3.3); Glucose 97 mg/dL (70-110); Potassium 5.4 mmol/L (3.5-5.5); Sodium 143 mmol/L (135-145); Total Bilirubin 0.5 mg/dL (0.3-1.2); Total Protein 6.9 d/dL (6.2-8.2)
== END | disposition home or self-care (01) ==
LOC: LABWHC1 07:51
PROVIDERS: ATTEND Internal Medicine Clinical Cardiac Electrophysiology
DX: I10 Essential (primary) hypertension (principal); E78.2 Mixed hyperlipidemia; R00.2 Palpitations
CPT/HCPCS: 36415; 80053; 80061; 84443

== ENCOUNTER → 2022-10-08 | Outpatient (CLI) | payer BC, MEDICARE ==
--- NOTE | 2022-10-08 07:25 | MM ---
Reason for Exam: Follow-up at short interval from prior study. Last screening mammogram was performed 3 month(s) ago. Patient History: Menarche at age 14. First Full-Term at age 26. Postmenopausal. Benign Core Biopsy on the right side. Maternal aunt had breast cancer, age 70. Risk Values: Aletha 5 year model risk: 1.9%. NCI Lifetime model risk: 9.3%. Prior Study Comparison: 02/16/2020 Bilateral Screening Mammogram, [facility]. 03/30/2021 Bilateral Screening Mammogram, [facility]. 06/25/2022 Bilateral MG 3D screening mammo w/cad, [facility]. Tissue Density: Left: The breast tissue is heterogeneously dense. This may lower the sensitivity of mammography. Findings: Analyzed By CAD. Benign-appearing spherical and punctate calcifications are within the left breast. There are couple of rounded densities with circumscribed margins in the upper outer left breast, stable from comparison. No significant interval changes are evident. No suspicious groups of microcalcifications, spiculated or lobular masses, architectural distortion or other secondary signs of malignancy are mammographically apparent. Overall Assessment: Incomplete: need additional imaging evaluation, BI-RAD 0 Management: Diagnostic Breast Ultrasound of the left breast. A negative mammogram report should not preclude additional follow up of suspicious palpable abnormalities. Patient should continue monthly self breast exam. A clinical breast exam by your physician is recommended on an annual basis and results should be correlated with mammographic findings. Electronically signed and approved by: Hermes Jacob D.O. Radiologis
--- NOTE | 2022-10-08 08:01 | USB ---
Reason for Exam: Follow-up at short interval from prior study. Patient History: Menarche at age 14. First Full-Term at age 26. Postmenopausal. Benign Core Biopsy on the right side. Maternal aunt had breast cancer, age 70. Risk Values: Aletha 5 year model risk: 1.9%. NCI Lifetime model risk: 9.3%. Technique: Method: Targeted. Prior Study Comparison: 02/16/2020 Bilateral Screening Mammogram, [facility]. 03/30/2021 Bilateral Screening Mammogram, [facility]. 06/25/2022 Bilateral MG 3D screening mammo w/cad, [facility]. Findings: The lateral section of the breast of the left breast, the axilla of the left breast and the retroareolar of the left breast were scanned. There is a 0.5 cm hypoechoic area with posterior wall enhancement. A few internal echoes are present. Findings likely represent small cyst too small to classify. This is located 4:00 position 8 cm from the nipple and is stable from comparison.. Overall Assessment: Probably benign, BI-RAD 3 Management: Screening Mammogram of both breasts in 6 months. Diagnostic Breast Ultrasound of the left breast in 6 months. A clinical breast exam by your physician is recommended on an annual basis and results should be correlated with mammographic findings. This exam should not preclude additional follow-up of suspicious palpable abnormalities. Results were given to the patient verbally at the time of exam. Electronically signed and approved by: Hermes Jacob D.O. Radiologis
== END | disposition home or self-care (01) ==
LOC: RADMAMWWP 06:57
PROVIDERS: ATTEND Obstetrics & Gynecology
DX: R92.8 Other abnormal and inconclusive findings on diagnostic imaging of breast (principal); Z78.0 Asymptomatic menopausal state; Z80.3 Family history of malignant neoplasm of breast
CPT/HCPCS: 77061; 77065

== ENCOUNTER → 2022-12-13 | Outpatient (CLI) | payer BC, MEDICARE | END | disposition home or self-care (01) | LOC: LABWHC1 08:47 | PROVIDERS: ATTEND Internal Medicine Clinical Cardiac Electrophysiology | DX: E05.90 Thyrotoxicosis, unspecified without thyrotoxic crisis or storm (principal) | CPT/HCPCS: 36415; 84443 ==

== ENCOUNTER 2023-04-21 03:22 | Emergency (ER) | payer BC, MEDICARE ==
[2023-04-21 03:55] VITALS: TEMP 97.5
--- NOTE | 2023-04-21 04:00 | ED ---
General Adult HPI - General Chief complaint: Chest Pain Stated complaint: chest pain,throat pain Time Seen by Provider: 04/21/23 03:29 Source: patient, RN notes reviewed, old records reviewed Mode of arrival: wheelchair Limitations: physical limitation - History of Present Illness Initial comments: Patient is a 63-year-old female who presents emergency department with chest pain. Seems to be somewhat chest wall pain. Recently diagnosed with bronchitis and finished a course of steroids and antibiotics. Patient was on cefdinir. Has noticed over the last 4 days a feeling of being "swollen" on her anterior chest wall as well as her neck. States her lymph nodes feel swollen. He has noticed a somewhat pruritic rash under her left breast and somewhat across her back. Denies any nausea or vomiting. States it is painful to touch. Presents for further evaluation at this time. Denies any cardiac history. - Related Data Home Medications Medication Instructions Recorded Confirmed Levothyroxine Sodium [Synthroid] 150 mcg PO DAILY 06/02/21 12/07/21 Amoxic-Pot Clav 875-125Mg 1 tab PO Q12HR 12/07/21 12/07/21 [Augmentin 875-125] predniSONE 50 mg PO DAILY 12/07/21 12/07/21 Previous Rx's Medication Instructions Recorded Albuterol Nebulized [Ventolin 2.5 mg INHALATION Q4H PRN #25 each 04/11/23 Nebulized] Benzonatate [Tessalon Perles] 100 mg PO TID PRN #15 capsule 04/11/23 Famotidine [Pepcid] 20 mg PO DAILY 7 Days #7 tablet 04/21/23 predniSONE [Deltasone] 40 mg PO DAILY 5 Days #10 tab 04/21/23 Allergies Allergy/AdvReac Type Severity Reaction Status Date / Time azithromycin Allergy Rash/Hives Verified 04/21/23 03:29 ciprofloxacin Allergy Rash/Hives Verified 04/21/23 03:29 codeine AdvReac Rapid Verified 04/21/23 03:29 Heart Rate hydrocodone bitartrate AdvReac Rapid Verified 04/21/23 03:29 [From [place]] Heart Rate meperidine HCl [From Demerol] AdvReac Rapid Verified 04/21/23 03:29 Heart Rate propoxyphene napsylate AdvReac Rapid Verified 04/21/23 03:29 [From Darvocet-N 100] Heart Rate Review of Systems ROS Statement: Those systems with pertinent positive or pertinent negative responses have been documented in the HPI. Review of Systems: CONST: Denies fever EYES: Denies blurry vision ENT: Denies nasal congestion C/V: Endorses chest pain RESP: Denies shortness of breath GI: Denies abdominal pain : Denies dysuria SKIN: Denies rash. MSK: Denies joint pain. NEURO: Denies headache ROS Other: All systems not noted in ROS Statement are negative. Past Medical History Past Medical History: Asthma, Hearing Disorder / Deafness, Thyroid Disorder Additional Past Medical History / Comment(s): Cervical Vertigo, Meniere's Disease, Hypercausis(sound/noise sensitivity) - hard of hearing, hearing aid use, Palpitations, Pre-Diabetic. History of Any Multi-Drug Resistant Organisms: None Reported Past Surgical History: Appendectomy, Hernia Repair, Orthopedic Surgery, Tubal Ligation Additional Past Surgical History / Comment(s): Neck surgery, C3-C8, has a plate in her neck, Novasure. Past Anesthesia/Blood Transfusion Reactions: Previous Problems w/ Anesthesia Additional Past Anesthesia/Blood Transfusion Reaction / Comment(s): Coded while having surgery(This was on HHX from previously, patient was unsure what it pollo nt, didn't remember this but said to leave it on record, was going to look into it). Hard to wake up. Vertigo. Past Psychological History: No Psychological Hx Reported Smoking Status: Never smoker Past Alcohol Use History: Rare Past Drug Use History: None Reported - Past Family History Father Family Medical History: Cancer Additional Family Medical History / Comment(s): Prostate CA, Anxiety. Mother Family Medical History: Cancer, COPD, Diabetes Mellitus Additional Family Medical History / Comment(s): Colon CA, Triple bypass, kidney failure, anxiety, depression, tumor behind her left eye. General Exam - General Exam Comments Initial Comments: General: Appears in mild distress secondary to chest wall discomfort HEAD: Normal with no signs of head trauma. EYES: PERRLA, EOMI, conjunctiva normal, no discharge. ENT: Hearing grossly intact, normal oropharynx. Somewhat tender and swollen ly mph nodes bilaterally. RESPIRATORY: Clear breath sounds bilaterally. No wheezes, rales, or rhonchi. C/V: Regular rate and rhythm. S1 and S2 auscultated, no edema, peripheral pulses 2+ and intact throughout ABD: Abd is soft, nontender, nondistended EXT: Normal range of motion, no obvious deformity. Patient has anterior chest wall pain as well as upper back pain. SKIN: Some erythema located over the upper back as well as the anterior chest wall and under the left breast. No obvious wheals located. No other obvious skin changes. NEURO: Alert and oriented x 4. Limitations: physical limitation Course Vital Signs 04/21/23 03:24 Temperature 97.5 F L Pulse Rate 66 Respiratory 22 Rate Blood Pressure 166/95 O2 Sat by Pulse 100 Oximetry Medical Decision Making - Medical Decision Making Was pt. sent in by a medical professional or institution (, [facility], ASSISTANT CHILD CARE TEACHER, urgent care, hospital, or halfway...) When possible be specific @ -No Did you speak to anyone other than the patient for history (EMS, parent, family, police, friend...)? What history was obtained from this source @ -No Did you review nursing and triage notes (agree or disagree)? Why? @ -I reviewed and agree with nursing and triage notes Were old charts reviewed (outside hosp., previous admission, EMS record, old EKG, old radiological studies, urgent care reports/EKG's, halfway records)? Report findings @ -No old charts were reviewed Differential Diagnosis (chest pain, altered mental status, abdominal pain women, abdominal pain men, vaginal bleeding, weakness, fever, dyspnea, syncope, headache, dizziness, GI bleed, back pain, seizure, CVA, palpatations, mental health, musculoskeletal)? @ -Allergic reaction, edema, musculoskeletal pain, ACS, infection. This list is not all inclusive. EKG interpreted by me (3pts min.). @ -As above X-rays interpreted by me (1pt min.). @ -Chest x-ray reveals no obvious acute cardiopulmonary process. CT interpreted by me (1pt min.). @ -None done U/S interpreted by me (1pt. min.). @ -None done What testing was considered but not performed or refused? (CT, X-rays, U/S, labs)? Why? @ -None What meds were considered but not given or refused? Why? @ -None Did you discuss the management of the patient with other professionals (professionals i.e. , PA, ASSISTANT CHILD CARE TEACHER, lab, RT, psych nurse, child welfare social worker, pinion sorter, teacher, aeronautical engineering officer, caser up)? Give summary @ -No Was smoking cessation discussed for >3mins.? @ -No Was critical care preformed (if so, how long)? @ -No Were there social determinants of health that impacted care today? How? (Homelessness, low income, unemployed, alcoholism, drug addiction, transportati on, low edu. Level, literacy, decrease access to med. care, correction, rehab)? @ -No Was there de-escalation of care discussed even if they declined (Discuss DNR or withdrawal of care, Hospice)? DNR status @ -No What co-morbidities impacted this encounter? (DM, HTN, Smoking, COPD, CAD, Cancer, CVA, ARF, Chemo, Hep., AIDS, mental health diagnosis, sleep apnea, morbid obesity)? @ -None Was patient admitted / discharged? Hospital course, mention meds given and route, prescriptions, significant lab abnormalities, going to OR and other pertinent info. @ -Presents for chest wall pain and concern for possible allergic reaction. Will obtain cardiac workup but also symptomatically treat the patient with Benadryl, steroids, famotidine. Seems to be more allergic reaction in nature. However due to her age we will obtain cardiac workup. Patient in agreement this plan. She also received IV Toradol. Vital signs within acceptable limits. EKG shows no signs of acute ischemia.Patient's laboratory studies returned remarkable for slight leukocytosis of 12. Troponin undetectable. EKG shows no signs of acute ischemia. Chest x-ray shows no obvious acute cardiopulmonary process. On reevaluation, patient is feeling improved. Pain is improved. Discussed with her I believe she may be having an allergic reaction of some sort to the antibiotic. Recommended she avoid this antibiotic in the future and we will provide her with prescriptions for famotidine as well as prednisone for home for at least 5 days. She has Benadryl at home already. Strict return precautions discussed. She was in agreement this plan. I instructed the patient to follow up with their PCP in the next 1-3 days. I e xplained that the patient should return to the emergency department if they experience any worsening symptoms. Strict return precautions were discussed with the patient. The patient expressed understanding of these instructions. I answered all questions that the patient had. The patient was discharged home in [good] condition with their prescriptions and follow up information. Undiagnosed new problem with uncertain prognosis? @ -No Drug Therapy requiring intensive monitoring for toxicity (Heparin, Nitro, Insulin, Cardizem)? @ -No Were any procedures done? @ -No Diagnosis/symptom? @ -Chest wall pain, allergic reaction Acute, or Chronic, or Acute on Chronic? @ -Acute Uncomplicated (without systemic symptoms) or Complicated (systemic symptoms)? @ -Complicated Side effects of treatment? @ -None Exacerbation, Progression, or Severe Exacerbation] @ -No Poses a threat to life or bodily function? @ -Unlikely - Lab Data Result diagrams: 04/21/23 03:51 04/21/23 03:51 Lab Results 04/21/23 04/21/23 04/21/23 Range/Units 03:51 03:51 03:51 WBC 12.4 H (3.8-10.6) k/uL RBC 4.66 (3.80-5.40) m/uL Hgb 13.8 (11.4-16.0) gm/dL Hct 41.0 (34.0-46.0) % MCV 88.0 (80.0-100.0) fL MCH 29.7 (25.0-35.0) pg MCHC 33.7 (31.0-37.0) g/dL RDW 14.2 (11.5-15.5) % Plt Count 361 (150-450) k/uL MPV 8.1 PT 10.1 (10.0-12.5) sec INR 0.9 (<1.2) APTT 21.8 L (22.0-30.0) sec Sodium 137 (137-145) mmol/L Potassium 3.8 (3.5-5.1) mmol/L Chloride 109 H (98-107) mmol/L Carbon Dioxide 28 (22-30) mmol/L Anion Gap 0 mmol/L BUN 14 (7-17) mg/dL Creatinine 0.73 (0.52-1.04) mg/dL Est GFR (CKD-EPI)AfAm >90 (>60 ml/min/1.73 sqM) Est GFR (CKD-EPI)NonAf 89 (>60 ml/min/1.73 sqM) Glucose 86 (74-99) mg/dL Calcium 9.6 (8.4-10.2) mg/dL Magnesium 2.1 (1.6-2.3) mg/dL Total Bilirubin 0.6 (0.2-1.3) mg/dL AST 48 H (14-36) U/L ALT 48 H (4-34) U/L Alkaline Phosphatase 69 (38-126) U/L Troponin I (0.000-0.034) ng/mL Total Protein 6.0 L (6.3-8.2) g/dL Albumin 3.5 (3.5-5.0) g/dL /05/11 Range/Units 03:51 WBC (3.8-10.6) k/uL RBC (3.80-5.40) m/uL Hgb (11.4-16.0) gm/dL Hct (34.0-46.0) % MCV (80.0-100.0) fL MCH (25.0-35.0) pg MCHC (31.0-37.0) g/dL RDW (11.5-15.5) % Plt Count (150-450) k/uL MPV PT (10.0-12.5) sec INR (<1.2) APTT (22.0-30.0) sec Sodium (137-145) mmol/L Potassium (3.5-5.1) mmol/L Chloride (98-107) mmol/L Carbon Dioxide (22-30) mmol/L Anion Gap mmol/L BUN (7-17) mg/dL Creatinine (0.52-1.04) mg/dL Est GFR (CKD-EPI)AfAm (>60 ml/min/1.73 sqM) Est GFR (CKD-EPI)NonAf (>60 ml/min/1.73 sqM) Glucose (74-99) mg/dL Calcium (8.4-10.2) mg/dL Magnesium (1.6-2.3) mg/dL Total Bilirubin (0.2-1.3) mg/dL AST (14-36) U/L ALT (4-34) U/L Alkaline Phosphatase (38-126) U/L Troponin I <0.012 (0.000-0.034) ng/mL Total Protein (6.3-8.2) g/dL Albumin (3.5-5.0) g/dL - EKG Data -: EKG Interpreted by Me EKG Comments: 12-lead Electrocardiogram Interpretation Note EKG was reviewed and interpreted by myself. 12-lead ECG performed at 0342 is interpreted by me as revealing sinus bradycardia at a rate of 56 beats per minute. Ronald is normal. [place] interval is 136 ms, QRS duration is 95 ms, QTc is 389 ms.. There were no ST or T wave abnormalities to suggest myocardial ischemia or injury. R wave progression across the precordium was satisfactory. By my interpretation this EKG is non-diagnostic for acute ischemia. Disposition Clinical Impression: Chest wall pain, Allergic reaction Disposition: HOME SELF-CARE Condition: Good Instructions (If sedation given, give patient instructions): Allergies (ED), Chest Wall Pain (ED) Prescriptions: predniSONE [Deltasone] 40 mg PO DAILY 5 Days #10 tab Famotidine [Pepcid] 20 mg PO DAILY 7 Days #7 tablet Is patient prescribed a controlled substance at d/c from ED?: No Referrals: Shubham Edwards MD [Primary Care Provider] - 1-2 days Time of Disposition: 05:46
[2023-04-21 04:12] LABS: ALT 48 U/L (4-34); AST 48 U/L (14-36); African American GFR (CKD) >90 (>60 ml/min/1.73 sqM); Albumin 3.5 g/dL (3.5-5.0); Alkaline Phosphatase 69 U/L (38-126); Anion Gap 0 mmol/L; Blood Urea Nitrogen 14 mg/dL (7-17); Calcium 9.6 mg/dL (8.4-10.2); Carbon Dioxide 28 mmol/L (22-30); Chloride 109 mmol/L (98-107); Glucose 86 mg/dL (74-99); Magnesium 2.1 mg/dL (1.6-2.3); Non-African American GFR(CKD) 89 (>60 ml/min/1.73 sqM); Potassium 3.8 mmol/L (3.5-5.1); Sodium 137 mmol/L (137-145); Total Bilirubin 0.6 mg/dL (0.2-1.3)
[2023-04-21] MEDS: KETOROLAC 15 MG/ML 1 ML VIAL IVP STA (04:16)
[2023-04-21] MEDS: diphenhydrAMINE 50 MG/ML 1 ML VIAL IVP STA (04:17)
[2023-04-21] MEDS: methylPREDNISolone SOD SUCCI 125 MG/2 ML VIAL IV STA (04:17)
[2023-04-21] MEDS: FAMOTIDINE 20 MG/2 ML VIAL IV STA (04:18)
[2023-04-21 04:33] LABS: Basophils % (A) 0 %; Eosinophils # (A) 0.3 k/uL (0-0.7); Eosinophils % (A) 2 %; HGB 13.8 gm/dL (11.4-16.0); Lymphocytes % (A) 41 %; MCH 29.7 pg (25.0-35.0); MCHC 33.7 g/dL (31.0-37.0); Mean Platelet Volume 8.1; Monocytes % (A) 8 %; Neutrophils # (A) 5.8 k/uL (1.3-7.7); Neutrophils % (A) 47 %; Platelet Count 361 k/uL (150-450); RBC 4.66 m/uL (3.80-5.40); RDW 14.2 % (11.5-15.5); WBC 12.4 k/uL (3.8-10.6)
[2023-04-21 04:47] LABS: INR 0.9 (<1.2); Prothrombin Time 10.1 sec (10.0-12.5)
[2023-04-21 05:12] LABS: Partial Thromboplastin Time 21.8 sec (22.0-30.0)
--- NOTE | 2023-04-21 05:27 | XR ---
EXAM: XR Chest, 2 Views CLINICAL HISTORY: Chest Pain TECHNIQUE: Frontal and lateral views of the chest. COMPARISON: 04-10-2023 FINDINGS: Lungs: No consolidation. No atelectasis. No CHF. Pleural space: No pleural effusion. No pneumothorax. Heart: No cardiomegaly. Mediastinum: Unremarkable. Normal mediastinal contour. Bones/joints: Lower cervical spine fusion hardware. No acute fracture. IMPRESSION: No acute abnormality.
[2023-04-21 06:46] VITALS: BP 145/85; PULSE 58; RESP 16
== END 2023-04-21 05:59 | disposition home or self-care (01) ==
LOC: EC 03:22
DX: R07.89 Other chest pain (principal); T78.40XA Allergy, unspecified, initial encounter; R00.1 Bradycardia, unspecified; J45.909 Unspecified asthma, uncomplicated; E07.9 Disorder of thyroid, unspecified; Z79.890 Hormone replacement therapy; Z88.1 Allergy status to other antibiotic agents; Z88.5 Allergy status to narcotic agent; Z88.8 Allergy status to other drugs, medicaments and biological substances
CPT/HCPCS: 36415; 93005; 80053; 83735; 84484; 85025; 85610; 85730; 71046; 99285; 96374; 96375 ×3; J1200; J2930; J3490; J1885

== ENCOUNTER 2023-04-27 00:36 | Emergency (ER) | payer BC, MEDICARE ==
[2023-04-27 01:18] VITALS: TEMP 98.2
--- NOTE | 2023-04-27 01:36 | ED ---
Abdominal Pain HPI - General Chief Complaint: Abdominal Pain Stated Complaint: SOB abd pain Time Seen by Provider: 04/27/23 01:07 Source: patient Mode of arrival: wheelchair Limitations: no limitations - History of Present Illness Initial Comments: 63-year-old female presenting to the ED with complaint of abdominal pain. Patient reports over the past few days has had some cough , myalgias, congestion, and some shortness of breath. States that she saw a physician at [facility] and reports that she was diagnosed with pneumonia today. Was prescribed amoxicillin. Also notes she took an at home COVID test which was positive. States today around 5 PM started to experience some upper abdominal pain. Also does note some chest tightness. Of note history difficult to obtain as patient is very hard of hearing and does not have her hearing aids at this moment. However does not seem to have any other complaints at this time. - Related Data Home Medications Medication Instructions Recorded Confirmed Levothyroxine Sodium [Synthroid] 150 mcg PO DAILY 06/02/21 12/07/21 Amoxic-Pot Clav 875-125Mg 1 tab PO Q12HR 12/07/21 12/07/21 [Augmentin 875-125] predniSONE 50 mg PO DAILY 12/07/21 12/07/21 Previous Rx's Medication Instructions Recorded Albuterol Nebulized [Ventolin 2.5 mg INHALATION Q4H PRN #25 each 04/11/23 Nebulized] Benzonatate [Tessalon Perles] 100 mg PO TID PRN #15 capsule 04/11/23 Famotidine [Pepcid] 20 mg PO DAILY 7 Days #7 tablet 04/21/23 predniSONE [Deltasone] 40 mg PO DAILY 5 Days #10 tab 04/21/23 Allergies Allergy/AdvReac Type Severity Reaction Status Date / Time azithromycin Allergy Rash/Hives Verified 04/21/23 03:29 ciprofloxacin Allergy Rash/Hives Verified 04/21/23 03:29 codeine AdvReac Rapid Verified 04/21/23 03:29 Heart Rate hydrocodone bitartrate AdvReac Rapid Verified 04/21/23 03:29 [From [place]] Heart Rate meperidine HCl [From Demerol] AdvReac Rapid Verified 04/21/23 03:29 Heart Rate propoxyphene napsylate AdvReac Rapid Verified 03/03/24 03:29 [From Darvocet-N 100] Heart Rate Review of Systems ROS Statement: Those systems with pertinent positive or pertinent negative responses have been documented in the HPI. ROS Other: All systems not noted in ROS Statement are negative. Past Medical History Past Medical History: Asthma, Hearing Disorder / Deafness, Thyroid Disorder Additional Past Medical History / Comment(s): Cervical Vertigo, Meniere's Disease, Hypercausis(sound/noise sensitivity) - hard of hearing, hearing aid use, Palpitations, Pre-Diabetic. History of Any Multi-Drug Resistant Organisms: None Reported Past Surgical History: Appendectomy, Hernia Repair, Orthopedic Surgery, Tubal Ligation Additional Past Surgical History / Comment(s): Neck surgery, C3-C8, has a plate in her neck, Novasure. Past Anesthesia/Blood Transfusion Reactions: Previous Problems w/ Anesthesia Additional Past Anesthesia/Blood Transfusion Reaction / Comment(s): Coded while having surgery(This was on HHX from previously, patient was unsure what it meant, didn't remember this but said to leave it on record, was going to look into it). Hard to wake up. Vertigo. Past Psychological History: No Psychological Hx Reported Smoking Status: Never smoker Past Alcohol Use History: Rare Past Drug Use History: None Reported - Past Family History Father Family Medical History: Cancer Additional Family Medical History / Comment(s): Prostate CA, Anxiety. Mother Family Medical History: Cancer, COPD, Diabetes Mellitus Additional Family Medical History / Comment(s): Colon CA, Triple bypass, kidney failure, anxiety, depression, tumor behind her left eye. General Exam Limitations: language barrier (Hard of hearing) General appearance: alert Head exam: Present: atraumatic, normocephalic Neck exam: Present: normal inspection Respiratory exam: Present: other (Reproducible chest wall tenderness to palpation. Crackles amaris lower lung flores) Cardiovascular Exam: Present: regular rate, normal rhythm GI/Abdominal exam: Present: soft Neurological exam: Present: alert, oriented X3 Skin exam: Present: warm, dry Course Vital Signs 04/27/23 04/27/23 00:46 02:37 Temperature 98.2 F Pulse Rate 90 79 Respiratory 16 20 Rate Blood Pressure 155/85 130/63 O2 Sat by Pulse 98 97 Oximetry Medical Decision Making - Medical Decision Making Was pt. sent in by a medical professional or institution (, PA, VACUUM EXTRACTOR OPERATOR, urgent care, hospital, or group home...) When possible be specific @ -No Did you speak to anyone other than the patient for history (EMS, parent, family, police, friend...)? What history was obtained from this source @ -No Did you review nursing and triage notes (agree or disagree)? Why? @ -I reviewed and agree with nursing and triage notes Were old charts reviewed (outside hosp., previous admission, EMS record, old EKG, old radiological studies, urgent care reports/EKG's, group home records)? Report findings @ -No old charts were reviewed Differential Diagnosis (chest pain, altered mental status, abdominal pain women, abdominal pain men, vaginal bleeding, weakness, fever, dyspnea, syncope, headache, dizziness, GI bleed, back pain, seizure, CVA, palpatations, mental hea lth, musculoskeletal)? @ -Differential Dyspnea: Coronary syndrome, arrhythmia, tamponade, asthma, COPD, pulmonary embolism, pneumonia, pneumothorax, pulmonary effusion, anaphylaxis, diabetic ketoacidosis, flailed chest, pulmonary contusion, diaphragmatic rupture, anemia, neuromuscular , this is not meant to be an all-inclusive list. EKG interpreted by me (3pts min.). @ -EKG interpreted me showing a sinus rhythm at 75 bpm without acute changes. MS 122, QRS 77, QT/QTc 367/395. X-rays interpreted by me (1pt min.). @ -Chest x-ray interpreted me showing no evidence of acute process. CT interpreted by me (1pt min.). @ -CT abdomen pelvis interpreted me showing no evidence of acute abdominal process however did reveal subtle groundglass opacities of the lungs. U/S interpreted by me (1pt. min.). @ -None done What testing was considered but not performed or refused? (CT, X-rays, U/S, labs)? Why? @ -None What meds were considered but not given or refused? Why? @ -None Did you discuss the management of the patient with other professionals (professionals i.e. , MANDI, VACUUM EXTRACTOR OPERATOR, lab, RT, psych nurse, social studies teacher, military lawyer, teacher, recruitment officer, case worker)? Give summary @ -No Was smoking cessation discussed for >3mins.? @ -No Was critical care preformed (if so, how long)? @ -No Were there social determinants of health that impacted care today? How? (Homelessness, low income, unemployed, alcoholism, drug addiction, transportation, low edu. Level, literacy, decrease access to med. care, assisted, rehab)? @ -No Was there de-escalation of care discussed even if they declined (Discuss DNR or withdrawal of care, Hospice)? DNR status @ -No What co-morbidities impacted this encounter? (DM, HTN, Smoking, COPD, CAD, Cancer, CVA, ARF, Chemo, Hep., AIDS, mental health diagnosis, sleep apnea, morbid obesity)? @ -None Was patient admitted / discharged? Hospital course, mention meds given and route, prescriptions, significant lab abnormalities, going to OR and other pertinent info. @ -Discharge 63-year-old female presenting to the ED with complaints of cough, difficulties breathing, and most recently abdominal pain. Was seen by physician earlier today and was diagnosed with pneumonia. Prescribed amoxicillin 1 g 3 times daily. Reports following this visit started to experience some upper abdominal pain which prompted presentation to the ED for further evaluation. On exam there are crackles in the lower lobes. CT abdomen pelvis revealed no acute abdominal process however did show subtle groundglass opacities of the lower lobes of the lungs. Laboratory studies reviewed. CBC unremarkable. Chemistry panel largely unremarkable. Troponin undetectable. BNP 155. UA shows 21 white blood cells and large leukocyte esterase. No nitrites. No bacteria. Serology panel does show positive for COVID. With evidence of pneumonia, advised to continue taking amoxicillin as prescribed. At this time vital signs stable afebrile. Discharged home in stable condition. Advise follow-up with PCP. Undiagnosed new problem with uncertain prognosis? @ -No Drug Therapy requiring intensive monitoring for toxicity (Heparin, Nitro, Insulin, Cardizem)? @ -No Were any procedures done? @ -No Diagnosis/symptom? @ -Pneumonia, abdominal pain, COVID Acute, or Chronic, or Acute on Chronic? @ -Acute Uncomplicated (without systemic symptoms) or Complicated (systemic symptoms)? @ -Complicated Side effects of treatment? @ -No Exacerbation, Progression, or Severe Exacerbation? @ -No Poses a threat to life or bodily function? How? (Chest pain, [place], [place], pneumonia, PE, COPD, DKA, ARF, appy, cholecystitis, CVA, Diverticulitis, Homicidal, Suicidal, threat to staff... and all critical care pts) @ -Unlikely - Lab Data Result diagrams: 04/27/23 01:49 04/27/23 01:49 Lab Results 04/27/23 04/27/23 04/27/23 Range/Units 01:49 01:49 01:49 WBC 10.3 (3.8-10.6) k/uL RBC 4.65 (3.80-5.40) m/uL Hgb 13.2 (11.4-16.0) gm/dL Hct 40.6 (34.0-46.0) % MCV 87.4 (80.0-100.0) fL MCH 28.4 (25.0-35.0) pg MCHC 32.6 (31.0-37.0) g/dL RDW 14.1 (11.5-15.5) % Plt Count 298 (150-450) k/uL MPV 7.4 Neutrophils % 54 % Lymphocytes % 32 % Monocytes % 9 % Eosinophils % 3 % Basophils % 1 % Neutrophils # 5.6 (1.3-7.7) k/uL Lymphocytes # 3.3 (1.0-4.8) k/uL Monocytes # 0.9 (0-1.0) k/uL Eosinophils # 0.3 (0-0.7) k/uL Basophils # 0.1 (0-0.2) k/uL PT 9.9 L (10.0-12.5) sec INR 0.9 (<1.2) APTT 21.9 L (22.0-30.0) sec Sodium 135 L (137-145) mmol/L Potassium 4.7 (3.5-5.1) mmol/L Chloride 104 (98-107) mmol/L Carbon Dioxide 26 (22-30) mmol/L Anion Gap 5 mmol/L BUN 15 (7-17) mg/dL Creatinine 0.69 (0.52-1.04) mg/dL Est GFR (CKD-EPI)AfAm >90 (>60 ml/min/1.73 sqM) Est GFR (CKD-EPI)NonAf >90 (>60 ml/min/1.73 sqM) Glucose 101 H (74-99) mg/dL Calcium 8.8 (8.4-10.2) mg/dL Total Bilirubin 1.0 (0.2-1.3) mg/dL AST 51 H (14-36) U/L ALT 53 H (4-34) U/L Alkaline Phosphatase 51 (38-126) U/L Troponin I (0.000-0.034) ng/mL NT-Pro-B Natriuret Pep 155 pg/mL Total Protein 6.5 (6.3-8.2) g/dL Albumin 3.8 (3.5-5.0) g/dL Amylase 72 (30-110) U/L Lipase 187 (23-300) U/L Urine Color Urine Appearance (Clear) Urine pH (5.0-8.0) Ur Specific Benton (1.001-1.035) Urine Protein (Negative) Urine Glucose (UA) (Negative) Urine Ketones (Negative) Urine Blood (Negative) Urine Nitrite (Negative) Urine Bilirubin (Negative) Urine Urobilinogen (<2.0) mg/dL Ur Leukocyte Esterase (Negative) Urine RBC (0-5) /hpf Urine WBC (0-5) /hpf Ur Squamous Epith Cells (0-4) /hpf Urine Mucus (None) /hpf Influenza Type A (PCR) (Not Detectd) Influenza Type B (PCR) (Not Detectd) RSV (PCR) (Not Detectd) SARS-CoV-2 (PCR) (Not Detectd) 04/27/23 04/27/23 04/27/23 Range/Units 01:49 01:55 02:20 WBC (3.8-10.6) k/uL RBC (3.80-5.40) m/uL Hgb (11.4-16.0) gm/dL Hct (34.0-46.0) % MCV (80.0-100.0) fL MCH (25.0-35.0) pg MCHC (31.0-37.0) g/dL RDW (11.5-15.5) % Plt Count (150-450) k/uL MPV Neutrophils % % Lymphocytes % % Monocytes % % Eosinophils % % Basophils % % Neutrophils # (1.3-7.7) k/uL Lymphocytes # (1.0-4.8) k/uL Monocytes # (0-1.0) k/uL Eosinophils # (0-0.7) k/uL Basophils # (0-0.2) k/uL PT (10.0-12.5) sec INR (<1.2) APTT (22.0-30.0) sec Sodium (137-145) mmol/L Potassium (3.5-5.1) mmol/L Chloride (98-107) mmol/L Carbon Dioxide (22-30) mmol/L Anion Gap mmol/L BUN (7-17) mg/dL Creatinine (0.52-1.04) mg/dL Est GFR (CKD-EPI)AfAm (>60 ml/min/1.73 sqM) Est GFR (CKD-EPI)NonAf (>60 ml/min/1.73 sqM) Glucose (74-99) mg/dL Calcium (8.4-10.2) mg/dL Total Bilirubin (0.2-1.3) mg/dL AST (14-36) U/L ALT (4-34) U/L Alkaline Phosphatase (38-126) U/L Troponin I <0.012 (0.000-0.034) ng/mL NT-Pro-B Natriuret Pep pg/mL Total Protein (6.3-8.2) g/dL Albumin (3.5-5.0) g/dL Amylase (30-110) U/L Lipase (23-300) U/L Urine Color Colorless Urine Appearance Clear (Clear) Urine pH 7.0 (5.0-8.0) Ur Specific Benton 1.011 (1.001-1.035) Urine Protein Negative (Negative) Urine Glucose (UA) Negative (Negative) Urine Ketones Negative (Negative) Urine Blood Negative (Negative) Urine Nitrite Negative (Negative) Urine Bilirubin Negative (Negative) Urine Urobilinogen <2.0 (<2.0) mg/dL Ur Leukocyte Esterase Large H (Negative) Urine RBC 1 (0-5) /hpf Urine WBC 21 H (0-5) /hpf Ur Squamous Epith Cells 1 (0-4) /hpf Urine Mucus Rare H (None) /hpf Influenza Type A (PCR) Not Detected (Not Detectd) Influenza Type B (PCR) Not Detected (Not Detectd) RSV (PCR) Not Detected (Not Detectd) SARS-CoV-2 (PCR) Detected A (Not Detectd) Disposition Clinical Impression: Pneumonia, COVID, Abdominal pain Disposition: HOME SELF-CARE Condition: Good Instructions (If sedation given, give patient instructions): Pneumonia (ED) Additional Instructions: Please return to the Emergency Department if symptoms worsen or any other concerns. Please follow-up with your PCP. Is patient prescribed a controlled substance at d/c from ED?: No Referrals: Shubham Edwards MD [Primary Care Provider] - 1-2 days Time of Disposition: 03:28
[2023-04-27] MEDS: KETOROLAC 15 MG/ML 1 ML VIAL IVP STA (01:51)
[2023-04-27 02:01] LABS: Basophils # (A) 0.1 k/uL (0-0.2); Basophils % (A) 1 %; Eosinophils # (A) 0.3 k/uL (0-0.7); Eosinophils % (A) 3 %; HCT 40.6 % (34.0-46.0); HGB 13.2 gm/dL (11.4-16.0); Lymphocytes # (A) 3.3 k/uL (1.0-4.8); Lymphocytes % (A) 32 %; MCH 28.4 pg (25.0-35.0); MCHC 32.6 g/dL (31.0-37.0); MCV 87.4 fL (80.0-100.0); Mean Platelet Volume 7.4; Monocytes # (A) 0.9 k/uL (0-1.0); Monocytes % (A) 9 %; Neutrophils # (A) 5.6 k/uL (1.3-7.7); Neutrophils % (A) 54 %; Platelet Count 298 k/uL (150-450); RBC 4.65 m/uL (3.80-5.40); RDW 14.1 % (11.5-15.5); WBC 10.3 k/uL (3.8-10.6)
[2023-04-27 02:12] LABS: ALT 53 U/L (4-34); AST 51 U/L (14-36); African American GFR (CKD) >90 (>60 ml/min/1.73 sqM); Albumin 3.8 g/dL (3.5-5.0); Alkaline Phosphatase 51 U/L (38-126); Amylase 72 U/L (30-110); Anion Gap 5 mmol/L; Blood Urea Nitrogen 15 mg/dL (7-17); Calcium 8.8 mg/dL (8.4-10.2); Carbon Dioxide 26 mmol/L (22-30); Chloride 104 mmol/L (98-107); Glucose 101 mg/dL (74-99); Lipase 187 U/L (23-300); Non-African American GFR(CKD) >90 (>60 ml/min/1.73 sqM); Sodium 135 mmol/L (137-145); Total Protein 6.5 g/dL (6.3-8.2)
[2023-04-27 02:20] LABS: NT-Pro-B-Type Natriuretic Pept 155 pg/mL
[2023-04-27 02:26] LABS: Appearance,Urine Clear (Clear); Bilirubin,Urine Negative (Negative); Blood,Urine Negative (Negative); Color,Urine Colorless; Glucose,Urine (UA) Negative (Negative); Ketones,Urine Negative (Negative); Leukocyte Esterase,Urine Large (Negative); Mucus,Urine Rare /hpf; Nitrite,Urine Negative (Negative); Protein,Urine Negative (Negative); RBC,Urine 1 /hpf (0-5); Specific Gravity,Urine 1.011 (1.001-1.035); Squamous Epithelial Cell,Urine 1 /hpf (0-4); Urobilinogen,Urine <2.0 mg/dL (<2.0); WBC,Urine 21 /hpf (0-5)
[2023-04-27 02:37] LABS: Potassium 4.7 mmol/L (3.5-5.1)
--- NOTE | 2023-04-27 02:39 | XR ---
EXAM: XR Chest, 2 Views CLINICAL HISTORY: ITS.REASON XR Reason: r/o pna TECHNIQUE: Frontal and lateral views of the chest. COMPARISON: No relevant prior studies available. FINDINGS: Lungs: No consolidation or mass. Pleural space: No effusion. Heart: No cardiomegaly. Bones/joints: No acute findings. IMPRESSION: No acute cardiopulmonary process.
--- NOTE | 2023-04-27 02:47 | CT ---
EXAM: CT Abdomen and Pelvis Without Intravenous Contrast CLINICAL HISTORY: ITS.REASON CT Reason: epigastric abdominal pain TECHNIQUE: Axial computed tomography images of the abdomen and pelvis without intravenous contrast. CTDI is 13.1 mGy and DLP is 748.3 mGy-cm. This CT exam was performed using one or more of the following dose reduction techniques: automated exposure control, adjustment of the mA and/or kV according to patient size, and/or use of iterative reconstruction technique. COMPARISON: No relevant prior studies available. FINDINGS: Subtle groundglass opacities are seen in the bilateral lower lobes of the lung. ABDOMEN: Liver: Mildly nodular liver. Gallbladder and bile ducts: Unremarkable. Pancreas: No ductal dilation. Spleen: Unremarkable. Adrenals: Unremarkable. Kidneys and ureters: No obstructing stones. No hydronephrosis. Stomach and bowel: No bowel obstruction. No bowel wall thickening. PELVIS: Appendix: No evidence of appendicitis. Bladder: No stones. Reproductive: Unremarkable. ABDOMEN and PELVIS: Intraperitoneal space: Unremarkable. Bones/joints: No acute fractures. Soft tissues: Unremarkable. Vasculature: No abdominal aortic aneurysm. Lymph nodes: No enlarged lymph nodes. IMPRESSION: 1. Subtle groundglass opacities are seen in the bilateral lower lobes of the lung. Correlate with infectious/inflammatory process 2. Mildly nodular liver. 3. No acute findings in the epigastric region
[2023-04-27 02:48] LABS: INR 0.9 (<1.2); Partial Thromboplastin Time 21.9 sec (22.0-30.0); Prothrombin Time 9.9 sec (10.0-12.5)
[2023-04-27 02:58] VITALS: BP 130/63; PULSE 79; RESP 20
== END 2023-04-27 03:39 | disposition home or self-care (01) ==
LOC: EC 00:36
DX: U07.1 COVID-19 (principal); J12.82 Pneumonia due to coronavirus disease 2019; J45.909 Unspecified asthma, uncomplicated; E07.9 Disorder of thyroid, unspecified; Z79.890 Hormone replacement therapy; Z79.52 Long term (current) use of systemic steroids; Z88.1 Allergy status to other antibiotic agents; Z88.5 Allergy status to narcotic agent; Z90.49 Acquired absence of other specified parts of digestive tract
CPT/HCPCS: 99285; 96374; 36415; 93005; 83880; 80053; 82150; 83690; 84484; 85025; 85610; 85730; 81001; 87636; 71046; 74176; J1885; Q9967

== ENCOUNTER → 2023-09-16 | Outpatient (CLI) | payer BC, MEDICARE ==
[2023-09-16 19:59] LABS: HCT 43.9 % (37.2-46.3); HGB 14.1 g/dL (12.0-15.0); MCH 27.8 pg (27.0-32.0); MCHC 32.1 g/dL (32.0-37.0); MCV 86.4 FL (80.0-97.0); Mean Platelet Volume 10.2 FL (9.5-12.2); NRBC Per 100 WBC 0 X 10*3/uL (0.00-0.01); Platelet Count 372 X 10*3/uL (140-440); RBC 5.08 X 10*6/uL (4.10-5.20); RDW 13.1 % (11.5-14.5); WBC 8.88 X 10*3/uL (4.50-10.00)
== END | disposition home or self-care (01) ==
LOC: LABWHC1 15:11
PROVIDERS: ATTEND Orthopaedic Surgery Sports Medicine
DX: M17.12 Unilateral primary osteoarthritis, left knee (principal); M21.162 Varus deformity, not elsewhere classified, left knee
CPT/HCPCS: 36415; 85027; 93005

== ENCOUNTER 2023-10-07 17:50 | Emergency (ER) | payer OTHER, MEDICARE | END 2023-10-07 20:01 | disposition home or self-care (01) | LOC: EC 17:50 | CPT/HCPCS: 99283 ==

== ENCOUNTER → 2023-11-05 | Outpatient (CLI) | payer BC, MEDICARE ==
[2023-11-05 19:18] LABS: Blood Urea Nitrogen 14.4 mg/dL (9.0-27.0); Calcium 10.5 mg/dL (8.7-10.3); Carbon Dioxide 25.6 mmol/L (21.6-31.8); Chloride 101 mmol/L (96-109); Glucose 182 mg/dL (70-110); Magnesium 2.3 mg/dL (1.5-2.4); Potassium 5.1 mmol/L (3.5-5.5); Sodium 140 mmol/L (135-145)
== END | disposition home or self-care (01) ==
LOC: LABWHC1 13:52
PROVIDERS: ATTEND Internal Medicine Clinical Cardiac Electrophysiology
DX: I10 Essential (primary) hypertension (principal); R73.03 Prediabetes; R00.2 Palpitations
CPT/HCPCS: 36415; 80048; 83036; 83735; 84443

== ENCOUNTER → 2024-04-22 | Outpatient (CLI) | payer BC, MEDICARE ==
--- NOTE | 2024-04-22 15:06 | MM ---
Reason for Exam: Screening (asymptomatic). Last screening mammogram was performed 12 month(s) ago. Patient History: Menarche at age 14. First Full-Term at age 26. Postmenopausal. Benign Core Biopsy on the right side. Maternal aunt had breast cancer, age 70. Risk Values: Aletha 5 year model risk: 2.1%. NCI Lifetime model risk: 8.7%. Prior Study Comparison: 06/25/2022 Bilateral MG 3D screening mammo w/cad, [facility]. 10/08/2022 Left MG 3D diag mammo w/cad LT, [facility]. 04/22/2023 Bilateral MG 3D diag mammo w/cad [facility], [facility]. Tissue Density: There are scattered areas of fibroglandular density. Findings: Analyzed By CAD. Unchanged bilateral areas of asymmetric density. There is no suspicious group of microcalcifications or new suspicious mass in either breast. Overall Assessment: Benign, BI-RAD 2 Management: Screening Mammogram of both breasts in 1 year. Patient should continue monthly self-breast exams. A clinical breast exam by your physician is recommended on an annual basis. This exam should not preclude additional follow-up of suspicious palpable abnormalities. Note on Aletha scores and lifetime risk: 1. A Aletha score greater than 3% is considered moderate risk. If this is the case, consider specialist referral to assess eligibility for a risk reducing agent. 2. If overall lifetime risk for the development of breast cancer is 20% or higher, the patient may qualify for future screening with alternating mammogram and breast MRI. [facility], , 04/22/2024 3:02 PM. Electronically signed and approved by: Zaynab Olivier M.D. Radiologist
== END | disposition home or self-care (01) ==
LOC: RADMAMWWP 09:38
PROVIDERS: ATTEND Family Medicine
DX: Z12.31 Encounter for screening mammogram for malignant neoplasm of breast (principal); R92.323 Mammographic fibroglandular density, bilateral breasts; Z78.0 Asymptomatic menopausal state; Z80.3 Family history of malignant neoplasm of breast
CPT/HCPCS: 77063; 77067

== ENCOUNTER → 2024-08-17 | Outpatient (CLI) | payer BC, MEDICARE ==
[2024-08-17 10:21] LABS: HCT 40.5 % (37.2-46.3); MCH 28.1 pg (27.0-32.0); MCHC 32.1 g/dL (32.0-37.0); MCV 87.7 FL (80.0-97.0); NRBC Per 100 WBC 0 X 10*3/uL (0.00-0.01); Platelet Count 344 X 10*3/uL (140-440); RBC 4.62 X 10*6/uL (4.10-5.20); RDW 13.4 % (11.5-14.5)
[2024-08-17 10:36] LABS: Microalbumin Creatinine Ratio <11 mg/g Cr (0-30)
[2024-08-17 10:49] LABS: ALT 19 U/L (8-44); AST 20 U/L (13-35); Albumin 4.2 g/dL (3.8-4.9); Alkaline Phosphatase 70 U/L (41-126); BUN/Creat Ratio 17.25 Ratio (12.00-20.00); Blood Urea Nitrogen 13.8 mg/dL (9.0-27.0); Calcium 9.4 mg/dL (8.7-10.3); Carbon Dioxide 28.1 mmol/L (21.6-31.8); Chloride 101 mmol/L (96-109); Globulin 2.1 g/dL (1.6-3.3); Glucose 115 mg/dL (70-110); LDL Cholesterol,Calculated 62.1 mg/dL (0.0-131.0); Potassium 4.4 mmol/L (3.5-5.5); Sodium 137 mmol/L (135-145); Testosterone <10.00 ng/dL (7.00-45.62); Total Bilirubin 0.4 mg/dL (0.3-1.2); Total Protein 6.3 g/dL (6.2-8.2)
[2024-08-17 12:42] LABS: Follicle Stimulating Hormone 47.1 mIU/mL
[2024-08-17 20:37] LABS: C-Peptide 3.43 ng/mL (0.81-3.85)
== END | disposition home or self-care (01) ==
LOC: LABWHC1 07:02
PROVIDERS: ATTEND Family Medicine
DX: I10 Essential (primary) hypertension (principal); E11.9 Type 2 diabetes mellitus without complications; Z79.899 Other long term (current) drug therapy
CPT/HCPCS: 36415; 80053; 80061; 82043; 82570; 83001; 83036; 84144; 84403; 84436; 84443; 84681; 85027